=== PATIENT | male | born 1955 | race Caucasian/White ===

== ENCOUNTER → 2017-09-14 15:35 | Outpatient (CLI) | payer MEDICAID, SELFPAY ==
[2017-09-14 16:34] LABS: AST(SGOT) 20 U/L (15-37); Alanine Aminotransfer ALT/SGPT 19 U/L (16-61); Albumin, Serum 4.4 g/dL (3.2-5.0); Alkaline Phosphatase 78 U/L (45-117); Anion Gap 6 (5-15); BUN 14 mg/dL (7-18); BUN/Creat Ratio 12.4 RATIO (10-20); Bilirubin, Direct 0.14 mg/dL (0.00-0.30); Calcium,Total 9.1 mg/dL (8.5-10.1); Chloride 103 mmol/L (98-107); Cholesterol 116 mg/dL (200); Creatinine, Serum 1.13 mg/dL (0.70-1.30); EST Glomerular Filtration Rate 70 mL/min (>60); Est Glom Filt Rate - Afr Amer 85 mL/min (>60); Globulin 2.9 g/dL (2.2-4.2); Glucose 92 mg/dL (74-106); High Density Lipoprotein 41 mg/dL; Potassium 4.3 mmol/L (3.5-5.1); Protein, Total 7.3 g/dL (6.4-8.2); Sodium Level 137 mmol/L (136-145); Triglycerides 92 mg/dL; Very Low Density Lipoprotein 18 mg/dL (5-40)
== END ==
PROVIDERS: Family Provider Family Medicine; PCP Family Medicine; Visit Provider Family Medicine
DX: E11.9 Type 2 diabetes mellitus without complications (principal)
CPT/HCPCS: 36415; 80048; 80061; 80076

== ENCOUNTER → 2018-04-09 12:18 | Outpatient (CLI) | payer OTHER, SELFPAY ==
--- NOTE | 2018-04-09 12:24 | MRI_ITS ---
STUDY: MRA OF THE HEAD WITHOUT CONTRAST REASON FOR EXAM: Male, 62 years old. CVA h/o clot 03/22/18. Right arm weakness and numbness and chest surgery. TECHNIQUE: 3-D [id number]-ivioiz (TOF) imaging was performed with MIPs. The study was performed unenhanced. COMPARISON: None. FINDINGS: Normal bilateral petrous carotid arteries. Normal right cavernous carotid artery with a normal supraclinoid bifurcation. Normal left cavernous carotid artery with a normal supraclinoid bifurcation. Normal right A1 segments of the anterior cerebral artery. Normal left A1 segments of the anterior cerebral artery. Normal intact anterior communicating artery (ACOM). Normal bilateral A2 segments of the anterior cerebral arteries. Normal right M1 and M2 segments of the middle cerebral arteries, with a normal M1 bifurcation. Normal left M1 and M2 segments of the middle cerebral arteries, with a normal M1 bifurcation. There is non-visualization of the right posterior communicating artery (PCOM). There is non-visualization of the left posterior communicating artery (PCOM). Normal bilateral vertebral arteries. Normal basilar artery with a normal basilar bifurcation. The visualized bilateral superior cerebellar (SCA) arteries are normal. Normal bilateral P1, P2 and visualized P3 segments of the posterior cerebral arteries. There is no demonstrated aneurysm of the [place]. There is no major vessel occlusion or hemodynamically significant stenosis. There is no demonstrated abnormality of the visualized brain. MRI/MRA Head ONLY without Contrast IMPRESSION: Unremarkable MRA of the head Electronically Signed: Jackelin Rodriguez MD at 12:16 EDT Tel , Service support ,
== END ==
PROVIDERS: Family Provider Family Medicine; PCP Family Medicine; Referring Provider Nurse Practitioner Acute Care; Visit Provider Nurse Practitioner Acute Care
DX: R53.1 Weakness (principal); Z86.73 Personal history of transient ischemic attack (TIA), and cerebral infarction without residual deficits; Z79.899 Other long term (current) drug therapy
CPT/HCPCS: 70544

== ENCOUNTER → 2018-04-10 12:55 | Outpatient (REF) | payer OTHER, SELFPAY | LOC: CVS 12:55 | PROVIDERS: Family Provider Family Medicine; PCP Family Medicine; Referring Provider Nurse Practitioner Acute Care; Visit Provider Nurse Practitioner Acute Care | DX: I48.91 Unspecified atrial fibrillation (principal); Z86.73 Personal history of transient ischemic attack (TIA), and cerebral infarction without residual deficits | CPT/HCPCS: 93270 ==

== ENCOUNTER → 2018-05-14 06:59 | Outpatient (CLI) | payer OTHER, SELFPAY ==
--- NOTE | 2018-05-14 10:46 | STRESSREP ---
Stress Test Report Exercise myocardial perfusion stress test. 62-year-old man with a history of hypertension premature ventricular complexes noted. Stress protocol: Resting EKG demonstrates normal sinus rhythm with a rate of 96 bpm commitment wide complex rhythms noted which appear to be consistent with nonsustained ventricular tachyarrhythmia. The patient exercised on the regular Salty protocol for total duration of 3 minutes and 20 seconds the maximum heart rate attained was 157 bpm which was 99% of maximum predicted heart rate maximum workload was 4.9 metabolic equivalents. Patient maintained sinus rhythm with frequent wide complex tachycardia arrhythmias. The longest was approximately 10 beats which was largely asymptomatic. The rate was approximately 155 bpm. At rest there were no ST or T wave changes noted suggest ischemia peak exercise no ST or T wave changes were noted suggest ischemia. The resting blood pressure 122/70 with a peak blood pressure 160/74. No clinical angina was noted. The test was terminated due to frequency of the arrhythmias. Myocardial perfusion protocol. 14.5 mCi of technetium 99m sestamibi was injected at rest. The patient exercised according to regular Salty protocol for a total duration of 3 minutes and 20 seconds and at peak exercise 42.0 mCi of technetium 99m sestamibi was injected stress images were obtained stress and rest images were reconstructed and compared in the short axis vertical long horizontal long axis. Gated images were also obtained Perfusion SPECT analysis: Review of the stress images demonstrate normal uptake of tracer noted in all areas of the myocardium. The resting images similarly demonstrate normal uptake of tracer noted in all areas of the myocardium. No obvious areas of reversibility are noted suggest ischemia. No previous infarct is noted. Gated SPECT analysis: The gated ejection fraction is 64%. Conclusion: Normal exercise myocardial perfusion stress test at a low workload of 4.9 metabolic equivalents. Frequent nonsustained ventricular tachycardia noted. Preserved ejection fraction.
== END ==
PROVIDERS: Family Provider Family Medicine; PCP Family Medicine; Referring Provider Internal Medicine Cardiovascular Disease; Visit Provider Internal Medicine Cardiovascular Disease
DX: R94.31 Abnormal electrocardiogram [ECG] [EKG] (principal); I10 Essential (primary) hypertension; I49.3 Ventricular premature depolarization
CPT/HCPCS: 78452; 93017; A9500; A4216

== ENCOUNTER → 2018-05-15 11:27 | Outpatient (CLI) | payer OTHER, SELFPAY ==
[2018-04-25 09:11] VITALS: BMI 29.3
[2018-05-15 12:44] LABS: Absolute Lymphocyte Count 1.33 X10^3/ul (0.83-4.51); Absolute Neutrophil Count 3.2 X10^3/uL (2.0-7.7); Basophil# 0.02 X10^3/uL; Basophil% 0.4 % (0-1); Eosinophil# 0.14 X10^3/uL; Eosinophils% 2.7 % (0-5); Hematocrit 35.3 % (40-54); Hemoglobin 11.1 g/dl (13.0-16.5); Lymphocyte # 1.33 X10^3/ul (4.0); Lymphocyte % 25.6 % (19-41); Mean Corp Hgb Conc 31.4 g/gl (32-36); Mean Corpuscular Hgb 28.9 pg (27.0-32.0); Mean Corpuscular Volume 91.9 fL (80-94); Mean Platelet Vol. 9.7 fl (6.2-12.0); Monocyte# 0.52 X10^3/uL; Neutrophil # 3.18 X10^3/uL (2.7-7.7); Neutrophil % 61.1 % (47-70); Platelet Count 244 K/mm3 (150-450); RBC Distribution Width CV 14.8 % (11.6-14.6); RBC Distribution Width SD 48.2 fl (35.1-43.9); Red Blood Count 3.84 M/mm3 (4.6-6.2); White Blood Count 5.2 K/mm3 (4.4-11.0)
[2018-05-15 12:50] LABS: POSITIVE COUNT NO; POSITIVE DIFFERENTIAL NO; POSITIVE MORPHOLOGY NO
[2018-05-15 12:56] LABS: International Normalized Ratio 1.1; Prothrombin Time (Protime)PT. 13.7 SECONDS (11.7-14.9)
[2018-05-15 12:57] LABS: Partial Thromboplast Time 32.9 Seconds (24.1-36.2)
[2018-05-15 13:18] LABS: Anion Gap 10 (5-15); BUN 30 mg/dL (7-18); BUN/Creat Ratio 26.3 RATIO (10-20); Calcium,Total 8.9 mg/dL (8.5-10.1); Chloride 106 mmol/L (98-107); Creatinine, Serum 1.14 mg/dL (0.70-1.30); EST Glomerular Filtration Rate 69 mL/min (>60); Est Glom Filt Rate - Afr Amer 84 mL/min (>60); Glucose 92 mg/dL (74-106); Sodium Level 141 mmol/L (136-145)
--- NOTE | 2018-05-15 13:33 | RAD_ITS ---
STUDY: X-RAY CHEST REASON FOR EXAM: Male, 62 years old. Failed stress test, tachycardia. TECHNIQUE: PA and lateral views of the chest. COMPARISON: AP upright chest x-ray November 22, 2015. FINDINGS: The lungs are clear and expanded. There is no demonstrated pleural abnormality. Normal size heart. Normal mediastinum and lavell. Normal visualized pulmonary arteries. There is mild atherosclerotic calcification of the aortic arch. There are stable multilevel degenerative changes of the visualized thoracic spine. 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 There is no demonstrated abnormality of the visualized soft tissue structures of the upper abdomen. RAD/Chest PA and Lateral IMPRESSION: No acute cardiopulmonary disease. Electronically Signed: Conrado Wolfe MD at 17:11 EST , Service support ,
== END ==
PROVIDERS: Family Provider Family Medicine; PCP Family Medicine; Referring Provider Internal Medicine Cardiovascular Disease; Visit Provider Internal Medicine Cardiovascular Disease
DX: I47.2 Ventricular tachycardia (principal); I48.0 Paroxysmal atrial fibrillation; I49.3 Ventricular premature depolarization; I63.9 Cerebral infarction, unspecified; I10 Essential (primary) hypertension; R94.39 Abnormal result of other cardiovascular function study
CPT/HCPCS: 36415; 71046; 80048; 85025; 85610; 85730

== ENCOUNTER 2018-05-21 08:51 | Day surgery (SDC) | payer OTHER, SELFPAY ==
[2018-04-25 09:11] VITALS: BMI 29.3
[2018-05-16 09:41] VITALS: BMI 29.3
--- NOTE | 2018-05-21 10:19 | CL.D_ITS ---
Patient Name: FRANCA PA Study Date: 05/21/2018 Performing: Rudy Cortes MD Ht: 68.89 inches 175 cm : 1955 Wt: 198.42 lbs 90 kg Age: 62 Gender: male BSA: 2.06 PROCEDURE(S) PERFORMED [id number]/COR/LV CLINICAL PROFILE AND INDICATIONS Indications: Cardiac Arrythmia Heart Failure: None Stress/Imaging Stress Test w/SPECT MPI: Yes Result: NegativeStress Test with SPECT MPI: Negative Angina Classification Anginal Classification w/in 2 Weeks: No symptoms CAD Presentations: No Sxs, no angina. 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 The risks and benefits of the procedure as well as a full d escription of our services here and current unavailability of surgical backup were fully explained to the patient and/or their significant other prior to the catheterization. The Timeout was completed, verifying the correct patient and procedure. The patient's procedural site was prepped and draped in the usual fashion. Local anesthetic was given subcutaneously to right radial region with Lidocaine 2% . Using a modified Seldinger technique, arterial access was obtained via the right radial artery, a 6 Fr sheath was inserted. Right Coronary Artery selective angiography was then performed in multiple v iews using a 5 Fr. 4.0 Scotts catheter. Left Coronary Artery selective angiography was performed in mu ltiple views using a 5 Fr. 4.0 Scotts catheter. Left Ventriculography was performed in ZELAYA projection using a 5 Fr. Pigtail catheter. LV to AO pullback pressures were then recorded.The arterial sheath was pulled and a TR Band was applied for hemostasis CORONARY ANGIOGRAPHY DOMINANCE: Right Dominant LEFT HEART ASSESSMENT Left Ventricular Ejection Fraction: by LV Gram 55 % Normal LV wall motion Normal Left Ventricular systolic function LEFT MAIN: Angiographically normal LEFT ANTERIOR DECENDING ARTERY: Diffusely diseased up to 60 %, very small vessels DIAGONAL 1: Proximal - No significant disease noted CIRCUMFLEX ARTERY: MID CIRC: Moderate luminal irregularities up to 50% RIGHT CORONARY ARTERY: Mild luminal irregularities COMPLICATIONS No Complications PROCEDURE MEDICATIONS Versed 1 mg IV Fentanyl 50 mcg IV Versed 1 mg IV Oxygen: 2 L/min via nasal cannula SUMMARY OF HEMODYNAMIC DATA Time AIR REST ECG 09:19:49 AO 95/50 (70) SA 09:57:14 LV 96/2, 11 10:06:26 LV 98/2, 11 10:06:33 LV 102/3, 13 10:08:10 LV 96/3, 12 10:08:16 LVp 90/4, 14 10:08:21 AOp 101/51 (73) 10:08:26 Signed By Rudy Cortes MD On 05/21/2018 10:18:06 Rudy Cortes MD
== END 2018-05-21 14:45 | disposition home or self-care (01) ==
LOC: CLSP 08:52
PROVIDERS: Family Provider Family Medicine; PCP Family Medicine; Referring Provider Internal Medicine Cardiovascular Disease; Visit Provider Internal Medicine Cardiovascular Disease
DX: I49.3 Ventricular premature depolarization (principal); I10 Essential (primary) hypertension; Z86.73 Personal history of transient ischemic attack (TIA), and cerebral infarction without residual deficits; G47.33 Obstructive sleep apnea (adult) (pediatric); E11.9 Type 2 diabetes mellitus without complications; Z79.82 Long term (current) use of aspirin
CPT/HCPCS: 93458; 99152; 99153; J7040; Q9967; C1769; C1894

== ENCOUNTER 2018-06-07 09:00 | Outpatient (RCR) | payer OTHER, SELFPAY ==
--- NOTE | 2018-04-04 10:33 | HP.OTEVAL_ITS ---
Patient's Visit Information FRANCA PA is a 62 year old M, referred to Occupational Therapy by Tanmay Caruso, with a diagnosis of Stroke. Date of Evaluation: 04/03/18 Occupational Therapist: Mahnaz Kidd - Subjective Subjective: Pt seen for initial occupational therapy evaluation after suffering CVA 03/22/18 while on vacation in [facility]. Pt now demonstrates increased weakness, decreased coordination and function of R UE. Pt is R hand dominent. Pt has companions home health aide coming in to help w/ IADLs starting today. Pt lives w/ spouse, but spouse in unable to help assist pt with BADLs/IADLs. Pt completing BADLs using L hand primarily. Pt driving. Pt reports walk in shower w/ grab bars, std toilet seats. - Objective Objective/Observation: decreased functional use of R UE, decreased R UE coordination and strength. - ROM Elbow: R AROM -30/95 Wrist: R AROM 0/25' ROM Comments: R Shoulder abduction AROM 75', R Shoulder flexion AROM 74' - Strength Letterpress Printing Machinist: R 10 L 70 Lateral Pinch: R 4 L 18 Strength Comments: R UE 2/5. L UE 4+/5 - Edema Other: slight edema R elbow with brusing - Sensation Sensation Comments: No numbness and tingling - DASH-Disabilities of Arm, Shoulder& Hand DASH Sum: 85 - Goals Goal:: Pt will progress w/ R UE generalized strength 4/5 by d/c from OT to increase independence with BADLs. Pt will progress w/ R hand clerical warehouse worker strength by 60# to assist with opening containers R hand independnently by d/c from OT services. Goal:: Pt will progress w/ R AROM elbow extension by 30' and flexion 15' by d/c from OT services. Pt will progress w/ R AROM wrist extension by 30' and flexion 10' by d/c from OT services. Goal:: Pt will progress w/ R hand coordination skills to manipulate fasteners (buttons, zippers, snapes) independently for dressing tasks and tie shoes independently w/o extra time needed by d/c from OT services. Goal:: Pt will progress w/ abiltiy to grasp eating utensils correctly with R hand and cut food up independently by d/c from OT services. Goal:: Pt will be able to use R hand to grasp writing utensil and write personal information legibily in 3/4 trials. Goal:: Pt will be educated on R UE HEP with good understanding and demo 100%x. - Rehabilitation General Assessment: Pt demonstrated decreased functional use of R UE secondary to new onset stroke affecting R side. Pt demonstrates decreased ROM and strength of R UE with decreased coordination skills of R UE. Rehabilitation Potential: Good - Anticipated Interventions Anticipated Interventions: A/AAROM/PROM, Strengthening, Edema Control, Massage, Modalities, Orthoses, Joint Protection/Energy Conservation, Fine Motor Coord/Cory, Neuro Reeducation, ADL Training, Education re Self Massage Techniques, Home Program - Visit Plan Frequency: 2-3x /Week Duration: 4-6 Weeks General Plan: Pt demonstrated decreased functional use of R UE secondary to new onset stroke affecting R side. Pt demonstrates decreased ROM and strength of R UE with decreased coordination skills of R UE. Pt would benefit from direct occupational therapy services to increase R UE AROM, strength and fine motor coordination skills to increase independence with BADLs and functional living tasks to increase pt's quality of life. TEXT: Thank you for the opportunity to evaluate your patient. For Medicare and Medicare HMO plans, please review the plan of care and approve it. It will need to be FAXED BACK to us at [phone] for Medicare purposes. Please let me know if there are questions or concerns regarding this plan of care. Physician Signature: Date:
--- NOTE | 2018-04-04 14:50 | HP.PTEVAL ---
Patient's Visit Information FRANCA PA is a 62 year old M referred to Physical Therapy by Tanmay Caruso with a diagnosis of Stroke. Date of Evaluation: 04/04/18 Physical Therapist: Ady Mauricio, PT, - Visit Plan Plan: COMPLETED INTIAL PT EVALUATION. NO NEEDS FOR SKILLED PT WITH BALANCE OR GAIT - Subjective Subjective: This 62 y/o male presents to physical therapy with stroke. Patient had CVA with right hemiplegia on March 22 2108 at [place], [place]. Patient developed weakness right sidedand slurred speech,thus patien went to [facility] in [place] with CATSCAN and MRI.. Patient was in hospital for days,then patient flew home. Seen family DR recommended PT/OT/speech and MRA. Patient right led covered well but right arm continues to be affected with hypontic.Patient uses cane at home. Denies pain.Denies parathesia/tingling. Patient has able to do self hygine and ADL'S. Patient fell recently fx right humerus. Thus, has HHC 6 hours weeks. Pateint reqiures assist with laundry/cleaning/meals. Patient condition has affected QOL and housework chores. VOCATION: retired. SOCAIL: - Objective POSTURE: mild foward posture ,right arm flexed to side. GAIT: normal rodney reciprocal pattern with decrease right arm extremity motion. BALANCE: good-. MMT: 5/5 quads/hams/hip/ankle. FLEXABLITY: WFL HAMS. STAIRS: alternating 12 steps with rail left - Balance Scores Functional Gait Assessment Score: 28 % Disability: 6.6700 CATSIB Score (Max score 120 seconds): 120 - Rehabilitation Potential Physical Therapy Diagnosis: Patient had CVA main impairments speech and right UE with weaknss. Patient has no deficits with gait and balance Rehabilitation Potential: Good - Anticipated Interventions Patient/Client Instruction: Educate patient on: Condition, Plan of Care For the Purpose of:: To improve ability of physical actions for home/community/work/leisure, To improve health and function Thank you for the opportunity to evaluate your patient. For Medicare and Medicare HMO plans, please review the plan of care and approve it. It will need to be FAXED BACK to us at [phone] for Medicare purposes. Please let me know if there are questions or concerns regarding this plan of care. Physician Signature: Date:
--- NOTE | 2018-04-06 11:46 | HP.SP.AD ---
History - History Date of Eval: 04/06/18 Date of Onset of Diagnosis: 03/22/18 Previous speech therapy: Yes Results: As an inpatient following CVA. Pt able to recall dysarthria strategies recommended during stay. Other Relevant Medical History/Diagnoses/Surgery: Pt with prior CVA , 2015, with reported facial drooping but no speech/swallowing/cognitive-linguistic concerns. Medications related to this diagnosis: Lipitor and Aggrenox Smoking Status: Never smoker Hx Smoking: No Hx Tobacco Use: No - Pain Is pain an issue with your current prescribed condition?: No - Personal Patients Living Arrangements: With Significant Other Patient Allergies - Allergies Allergies No Known Allergies Allergy (Verified 11/22/15 07:30) Subjective Oral Motor - Subjective Patient Reports: Slurred Speech, Difficulty being Understood Facial Drooping: Right Objective Oral Motor - Oral Status Dentition: WNL - Labial Impairment: Mild Observation at Rest: Right Droop Pucker: Mild Retraction: Mild Alternating Pucker/Retraction: Mild Involuntary Movement noted: No - Lingual Impairment: Mild Observation: Deviated Right Protrusion: Mild Lateralization: Mild - Jaw Impairment: Mild - Oral Motor Comments Comments: Pt presents with mild right-sided hemiparesis effecting both strength and ROM of lingual and labial structures. The pt reports frequently biting his tongue, but denies numbness of any orofacial structures. Denies drooling, pocketing, or anterior spillage of bolus while eating. Denies sympoms of dysphagia. Subjective Dysarthria/Motor - Subjective Subjective: The pt presents with mild dysarthria characterized by imprecise articulation and fast rate. Pt reports a fast rate at baseline for which he was often chastized. He reports his speech has improved moderately since his recent CVA, but is not yet at baseline. The pt was 100% intelligible to this unfamiliar listener in unknown contexts in the quiet, distraction-free evaluation room. Objective Dysarthira/Motor - Speech Intelligibility Conversation: Mild - Volume Volume: WNL - Awareness/Strategy Use Uses strategies intermittently to improve intelligibility or listener's understanding of message: Yes Plan - Plan Plan: Skilled speech therapy is warranted at this time to improve the pt's mild dysarthria to a more functional level across environments. - Recommendations Treatment Warranted: Yes - Frequency Frequency: 1x/Week Duration: 2 Months - Prognosis Prognosis: Excellent - Goals that are Established: Determination:: Goals will be added/modified as deemed necessary and appropriate. Therapy will be discontinued when results of re-evaluation indicate therapy is no longer needed or lack of progress has been documented. - Goal #1-5 Goal #1: The pt will independently utilize compensatory dysarthria strategies to improve speech intelligibility during conversational interactions with 90% accuracy in 3/4 sessions. Goal #2: As judged by the WATER QUALITY CONTROL ENGINEER, the pt will independently demonstrate improved orofacial strength and ROM secondary to completion of orofacial strengthening exercises with 90% accuracy in 3/4 sessions. Education - Patient has Indicated that the Following Identified Educational Needs: None, Hearing/Vision/Speech Impaired The Patient has indicated that they have no educational or learning abilities that may effect their care.: Yes - Patient Instruction Patient Education: Diagnosis, Treatment Plan, Goals
--- NOTE | 2018-04-25 13:09 | HP.SP.DC_ITS ---
ST Discharge Summary - Discharged: Discharge: Joselito Silverman is discharged from outpatient speecch-language therapy effective 04/25/18. Joselito participated in three therapy sessions following his initial evaluation targeting compensatory dysarthria strategies and orofacial strength and range of motion exercises to facilitate improved speech intelligibility secondary to a CVA. Joselito was consistently able to demonstrate independent use of strategies and exercises and was 100% intelligible to this BAG MAKING MACHINE TENDER during normal conversational exchanges. The patient does have residual mild right labial droop at rest and with retraction, but reports no functional concerns with his speech and communication at this time. Please reconsult as necessary.
--- NOTE | 2018-05-02 11:54 | OTREVAL_ITS ---
Tanmay Caruso, It has been my pleasure to treat FRANCA PA over the last 10 visits for Stroke. Please see the progress note below for an update on the occupational therapy plan of care! Subjective: Pt arrived stating he is now using purple theraband for arm exercises at home now. No pain. Objective/Function: 10th visit OT re-evaluation: 20 min Pt is a hard worker. He is making progress with his OT goals. Pt is progressing with AROM R UE. AROM R shoulder flexion has progressed to 75' and R shoulder abduction has progressed to 87'. AROM elbow extension continues to be -30 and AROM elbow flexion has progressed -30/95 to -30/113'. AROM R wrist flexion has progressed from 25' to 30' and AROM wrist extension 0' to 5'. R hand cardiology consultants strength has progressed from 10# to 30# and R lateral pinch from 4# to 10#. Pt has been completing NDT to increase functional use of R UE for BADLs. Pt has been educated on adaptive marilyn hniques, compensatory strategies for BADLs. Pt would continue to benefit from further more skilled OT interventions to increase R UE strength, R UE AROM, independence with BADLs, writing skills and HEP to increase pt's quality of life. 1-2x/wk 4-6/wks Plan Frequency: 2-3x /Week Duration: 4-6 Weeks Plan: cont w/ prior POC Goals - Goals Goal:: Pt will progress w/ R UE generalized strength 4/5 by d/c from OT to increase independence with BADLs. Pt will progress w/ R hand cardiology consultants strength by 60# to assist with opening containers R hand independnently by d/c from OT services. Goal:: Pt will progress w/ R AROM elbow extension by 30' and flexion 15' by d/c from OT services. Pt will progress w/ R AROM wrist extension by 30' and flexion 10' by d/c from OT services. Goal:: Pt will progress w/ R hand coordination skills to manipulate fasteners (buttons, zippers, snapes) independently for dressing tasks and tie shoes independently w/o extra time needed by d/c from OT services. Goal:: Pt will progress w/ abiltiy to grasp eating utensils correctly with R hand and cut food up independently by d/c from OT services. Goal:: Pt will be able to use R hand to grasp writing utensil and write personal information legibily in 3/4 trials. Goal:: Pt will be educated on R UE HEP with good understanding and demo 100%x. Anticipated Interventions Anticipated Interventions: A/AAROM/PROM, Strengthening, Edema Control, Massage, Modalities, Orthoses, Joint Protection/Energy Conservation, Fine Motor Coord/Cory, Neuro Reeducation, ADL Training, Education re Self Massage Techniques, Home Program Please do not hesitate to contact me at [phone] by phone or if you have questions or concerns regarding this new plan of care! Sincerely, Mahnaz Kidd
--- NOTE | 2018-06-07 10:43 | OTREVAL_ITS ---
Tanmay Caruso, It has been my pleasure to treat FRANCA PA over the last 19 visits for Stroke. Please see the progress note below for an update on the occupational therapy plan of care! Subjective: Pt arrived ready for reassessment this date. Pt reports no pain, but increased tone this date. Getting ready to [place] the [place]. Objective/Function: increase functional ROM and strength of R UE to assist with functional living tasks and increase pt's quality of life Plan Frequency: 2-3x /Week Duration: 4-6 Weeks Plan: cont w/ increasing R UE AROM, strength and NDT to increase pt's ability to complete functional tasks with R UE. Goals - Goals Goal:: Pt will progress w/ R UE generalized strength 4/5 by d/c from OT to increase independence with BADLs. Pt will progress w/ R hand flying instructor strength by 60# to assist with opening containers R hand independnently by d/c from OT services. Goal:: Pt will progress w/ R AROM elbow extension by 30' and flexion 15' by d/c from OT services. Pt will progress w/ R AROM wrist extension by 30' and flexion 10' by d/c from OT services. Goal:: Pt will progress w/ R hand coordination skills to manipulate fasteners (buttons, zippers, snapes) independently for dressing tasks and tie shoes independently w/o extra time needed by d/c from OT services. Goal:: Pt will progress w/ abiltiy to grasp eating utensils correctly with R hand and cut food up independently by d/c from OT services. Goal:: Pt will be able to use R hand to grasp writing utensil and write personal information legibily in 3/4 trials. Goal:: Pt will be educated on R UE HEP with good understanding and demo 100%x. Anticipated Interventions Anticipated Interventions: A/AAROM/PROM, Strengthening, Edema Control, Massage, Modalities, Orthoses, Joint Protection/Energy Conservation, Fine Motor Coord/Cory, Neuro Reeducation, ADL Training, Education re Self Massage Techniques, Home Program Please do not hesitate to contact me at [phone] by phone or if you have questions or concerns regarding this new plan of care! Sincerely, Mahnaz Kidd
== END 2018-06-07 19:00 | disposition home or self-care (01) ==
LOC: OT 09:00
PROVIDERS: Family Provider Family Medicine; PCP Family Medicine; Referring Provider Family Medicine; Visit Provider Family Medicine
DX: Z86.73 Personal history of transient ischemic attack (TIA), and cerebral infarction without residual deficits (principal)
CPT/HCPCS: 92507; 92522; 97110; 97112; 97140; 97162; 97166; 97168; 97530

== ENCOUNTER → 2018-06-13 11:41 | Outpatient (CLI) | payer OTHER, SELFPAY ==
[2018-05-16 09:41] VITALS: BMI 29.3
[2018-06-13 14:30] LABS: Hemoglobin A1c 6.1 % (4.2-6.3)
[2018-06-13 14:47] LABS: AST(SGOT) 20 U/L (15-37); Alanine Aminotransfer ALT/SGPT 23 U/L (16-61); Albumin, Serum 4.3 g/dL (3.2-5.0); Alkaline Phosphatase 88 U/L (45-117); Cholesterol 84 mg/dL (200); Globulin 2.6 g/dL (2.2-4.2); High Density Lipoprotein 35 mg/dL; Protein, Total 6.9 g/dL (6.4-8.2); Triglycerides 76 mg/dL; Very Low Density Lipoprotein 15 mg/dL (5-40)
--- OUTSIDE RECORDS SUMMARY | 2018-09-14 16:05 | XMS RPT_ITS ---
:1955 Author Organization [place] Support Name Relationship Address Phone ELIEZER SILVERMAN Unavailable [address] + [place] [address] KINJAL, CATE Unavailable Unavailable + NINA PRAISO, [place] R Unavailable Unavailable Unavailable EMBER ELIEZER Unavailable [address] + [place] [address] LAYTON, CATE Unavailable Unavailable + NINA PRAISO, [place] R Unavailable Unavailable Unavailable EMBER, ELIEZER Unavailable [address] + [place] [address] LAYTON, CATE Unavailable Unavailable + NINA PRAISO, [place] R Unavailable Unavailable Unavailable EMBER, ELIEZER Unavailable [address] + [place] [address] LAYTON, CATE Unavailable Unavailable + NINA PRAISO, [place] R Unavailable Unavailable Unavailable EMBER, ELIEZER Unavailable [address] + [place] [address] KINJAL, CATE Unavailable Unavailable + NINA PRAISO, [place] R Unavailable Unavailable Unavailable EMBER, ELIEZER Unavailable [address] + [place] [address] KINJAL, CATE Unavailable Unavailable + NINA PRAISO, [place] R Unavailable Unavailable Unavailable EMBER, ELIEZER Unavailable [address] + [place] [address] LAYTON, CATE Unavailable Unavailable + NINA PRAISO, [place] R Unavailable Unavailable Unavailable EMBER, ELIEZER Unavailable [address] + [place] [address] KINJAL CATE Unavailable Unavailable + NINA PRAISO, [place] R Unavailable Unavailable Unavailable EMBER, ELIEZER Unavailable [address] + [place] [address] KINJAL CATE Unavailable Unavailable + R Unavailable Unavailable Unavailable CLIFFTON, ELIEZER/CALL Unavailable [address] + [place] [address] KINJAL, CATE Unavailable . + ., [place] . R Unavailable Unavailable Unavailable CLIFFTON, ELIEZER/CALL Unavailable [address] + [place] [address] LAYTON, CATE Unavailable Unavailable + R Unavailable Unavailable Unavailable EMBER, ELIEZER Unavailable [address] + [place] [address] LAYTON, CATE Unavailable Unavailable + NINA PRAISO, [place] R Unavailable Unavailable Unavailable EMBER, ELIEEZR Unavailable [address] + [place] [address] LAYTON, CATE Unavailable Unavailable + NINA PRAISO, [place] R Unavailable Unavailable Unavailable CLIFFTON, ELIEZER/CALL Unavailable [address] + [place] [address] KINJAL CATE Unavailable Unavailable + R Unavailable Unavailable Unavailable CLIFFTON, ELIEZER/CALL Unavailable [address] + [place] [address] LAYTON, CATE Unavailable . + [place], [place] . R Unavailable Unavailable Unavailable Care Team Providers Name Role Phone Sebastian, Seldovia Attending Unavailable Sebastian, Rudy Referring Unavailable Sebastian, Seldovia Attending Unavailable Sebastian, Rudy Referring Unavailable Sebastian, Seldovia Attending Unavailable Sebastian, Rudy Referring Unavailable Tanmay Caruso Attending Unavailable Tanmay Caruso Primary Care Unavailable Tanmay Caruso Attending Unavailable Tanmay Caruso Primary Care Unavailable Tanmay Caruso Attending Unavailable Tanmay Caruso Referring Unavailable Tanmay Caruso Primary Care Unavailable Jodee Sal ASSISTED LIVING MANAGER-C Attending Unavailable Doron, Jodee ASSISTED LIVING MANAGER-C Referring Unavailable Caruso, Tanmay Primary Care Unavailable Doron, [place] ASSISTED LIVING MANAGER-C Attending Unavailable Doron, Jodee ASSISTED LIVING MANAGER-C Referring Unavailable Caruso, Tanmay Primary Care Unavailable Zonia Yanez Attending Unavailable Sebastian, Seldovia Attending Unavailable Caruso, Tanmay Referring Unavailable Sebastian, Seldovia Attending Unavailable Sebastian, Rudy Referring Unavailable Caruso, Tanmay Primary Care Unavailable Sebastian, Rudy Attending Unavailable Sebastian, Rudy Referring Unavailable Caruso, Tanmay Primary Care Unavailable Sebastian, Seldovia Attending Unavailable Sebastian, Seldovia Referring Unavailable Caruso, Tanmay Primary Care Unavailable Sebastian, Seldovia Attending Unavailable Caruso, Tanmay Referring Unavailable Kilner, Zonia Attending Unavailable PROBLEMS PROBLEMS DATE TYPE CONDITION / CODE ATTENDING STATUS SOURCE 06/07/2018 Unknown Z86.73 - Personal Tanmay Caruso Active [place] history of transient Community ischemic attack (TIA), Hospital and cerebral Repository infarction without residual deficits / Z86.73(ICD-10) 05/15/2018 Unknown I49.3 - Ventricular Sebastian, Rudy Active [facility] premature Community depolarization / Hospital I49.3(ICD-10) Repository 05/15/2018 Unknown I10 - Essential Sebastian, Rudy Active [facility] (primary) hypertension Community / I10(ICD-10) Hospital Repository 05/15/2018 Unknown I47.2 - Ventricular Sebastian, Rudy Active [place] tachycardia / Community I47.2(ICD-10) Hospital Repository 05/15/2018 Unknown I48.0 - Paroxysmal Sebastian, Rudy Active [facility] atrial fibrillation / Community I48.0(ICD-10) Hospital Repository 05/15/2018 Unknown I63.9 - Cerebral Sebastian, Rudy Active [place] infarction, Community unspecified / Hospital I63.9(ICD-10) Repository 05/15/2018 Unknown R94.39 - Abnormal Sebastian, Rudy Active [place] result of other Community cardiovascular Hospital function study / Repository R94.39(ICD-10) 06/05/2018 Unknown R94.31 - Abnormal Sebastian, Rudy Active [facility] electrocardiogram Community [ECG] [EKG] / Hospital R94.31(ICD-10) Repository 06/13/2018 Unknown I48.91 - Unspecified Sebastian, [place] Active [facility] atrial fibrillation / Community I48.91(ICD-10) Hospital Repository 09/14/2017 Unknown E11.9 - Type 2 Tanmay Caruso Active [facility] diabetes mellitus Community without complications Hospital / E11.9(ICD-10) Repository PROCEDURES PROCEDURES No Procedure Records FoundRESULTS RESULTS HEMOGLOBIN A1C Collected: 06/13/2018 Status: F Source: [place] 11:50 AM [facility] REPOSITORY TYPE CODE TESTS RESULT OUT OF RANGE REFERENCE UNITS LAB L501.9985 4.2-6.3 % Normal HGB A1C 6.1 Performed By: #### L501.9985 #### [facility] [address] [place], [place], [address] LIVER PROFILE Collected: 06/13/2018 Status: F Source: [place] 11:50 AM [facility] REPOSITORY TYPE CODE TESTS RESULT OUT OF RANGE REFERENCE UNITS LAB L501.1500 6.4-8.2 g/dL Normal T PROT 6.9 LAB L501.1800 3.2-5.0 g/dL Normal ALB 4.3 LAB L501.1950 2.2-4.2 g/dL Normal GLOB 2.6 LAB L501.4100 15-37 U/L Normal AST 20 LAB L501.4305 45-117 U/L Normal ALK P 88 LAB L501.4405 16-61 U/L Normal ALT 23 LAB L501.4600 0.20-1.00 mg/dL Normal T BILI 0.60 LAB L501.4700 0.00-0.30 mg/dL Normal D BILI 0.20 Performed By: #### L500.3400, L500.4100 #### [facility] [address] [place], [place], [id number] LIPID PROFILE Collected: 06/13/2018 Status: F Source: [place] 11:50 AM [facility] REPOSITORY TYPE CODE TESTS RESULT OUT OF RANGE REFERENCE UNITS LAB L501.4900 200 mg/dL Normal CHOL 84 Result Comment: <200 mg/dL Desirable 200-240 mg/dL Borderline >240 mg/dL High Risk LAB L501.5000 mg/dL Normal TRIG 76 Result Comment: The drugs N-Acetylcysteine and Metamizole may falsely depress this assay. Serum Triglycerides Reference Interval Normal <150 mg/dL Borderline high 150 - 199 mg/dL High 200 - 499 mg/dL Very High > or = 500 mg/dL LAB L501.6400 mg/dL Low HDL 35 Result Comment: The drugs N-Acetylcysteine and Metamizole may falsely depress this assay. Reference Range HDL <40 mg/dL Low HDL Cholesterol HDL >or= 60 mg/dL High HDL Cholesterol LAB L501.6500 0-130 mg/dL Normal LDL 34 LAB L501.6600 5-40 mg/dL Normal VLDL 15 Performed By: #### L500.3400, L500.4100 #### [facility] [address] [place], [address] RE-EVALUTION OT Observed: 06/07/2018 Status: New Source: [place] 10:54 AM [facility] REPOSITORY [facility] Occupational Therapy [facility] [address] [place] [address] Fax REEVALUATION / MEDICARE RECERTIFICATION OCCUPATIONAL THERAPY MR#: [id number] Acct: [id number] Name: FRANCA SILVERMAN Rep #: [id number] : 1955 62 From: Mahnaz Kidd Referring Dr.: Tanmay Caruso MD Status: REG RCR Insurance: [email or web address] JUST FOR ME Eval Date: SELF PAY INSURANCE Tanmay Caruso, It has been my pleasure to treat FRANCA SILVERMAN over the last 19 visits for Stroke. Please see the progress note below for an update on the occupational therapy plan of care! Subjective: Pt arrived ready for reassessment this date. Pt reports no pain, but increased tone this date. Getting ready to visit family in different [place] for the [place]. Objective/Function: increase functional ROM and strength of R UE to assist with functional living tasks and increase pt's quality of life Plan Frequency: 2-3x /Week Duration: 4-6 Weeks Plan: cont w/ increasing R UE AROM, strength and NDT to increase pt's ability to complete functional tasks with R UE. Goals - Goals Goal:: Pt will progress w/ R UE generalized strength 4/5 by d/c from OT to increase independence with BADLs. Pt will progress w/ R hand outreach educator strength by 60# to assist with opening containers R hand independnently by d/c from OT services. Goal:: Pt will progress w/ R AROM elbow extension by 30' and flexion 15' by d/c from OT services. Pt will progress w/ R AROM wrist extension by 30' and flexion 10' by d/c from OT services. Goal:: Pt will progress w/ R hand coordination skills to manipulate fasteners (buttons, zippers, snapes) independently for dressing tasks and tie shoes independently w/o extra time needed by d/c from OT services. Goal:: Pt will progress w/ abiltiy to grasp eating utensils correctly with R hand and cut food up independently by d/c from OT services. Goal:: Pt will be able to use R hand to grasp writing utensil and write personal information legibily in 3/4 trials. Goal:: Pt will be educated on R UE HEP with good understanding and demo 100%x. Anticipated Interventions Anticipated Interventions: A/AAROM/PROM, Strengthening, Edema Control, Massage, Modalities, Orthoses, Joint Protection/Energy Conservation, Fine Motor Coord/Cory, Neuro Reeducation, ADL Training, Education re Self Massage Techniques, Home Program Please do not hesitate to contact me at [phone] by phone or if you have questions or concerns regarding this new plan of care! Sincerely, Mahnaz Kidd <Electronically signed by Mahnaz Kidd > 06/07/18 1054 CC: Tamnay Caruso MD KIKA Signed For Medicare only, by signing this I certify the plan of care. Physicians Signature Date OFFICE VISIT REPORT Observed: 05/17/2018 Status: F Source: [place] 10:49 AM [facility] [address] [place] [address] OFFICE VISIT Date of Service: 05/15/18 MR#: [id number] Acct: [id number] Patient: FRANCA SILVERMAN Rep #: [id number] : 1955 Provider: Rudy Cortes MD Age/Sex: 62/M Location: [facility] Status: Signed Intake Intake Visit Reasons: Cath Teaching for PK Chief Complaint: Initial consult Allergies No Known Allergies Allergy (Verified 04/25/18 09:03) Medications Multivitamin [Daily Multiple Vitamin] 1 ea PO DAILY 11/22/15 [History Confirmed 05/16/18] Acetaminophen [Tylenol Tablet] 650 mg PO Q4H PRN PRN #0 tab 11/24/15 [Rx Confirmed 05/16/18] Atorvastatin Calcium [Lipitor] 20 mg PO QHS #30 tab 12/01/15 [Rx Confirmed 05/16/18] Fluticasone 0.05% [Flonase Nasal [place]] 2 spray NASAL DAILY #1 bottle 12/01/15 [Rx Confirmed 05/16/18] Loratadine [Claritin] 10 mg PO DAILY tab 12/01/15 [Rx Confirmed 05/16/18] Metformin HCl [Metformin HCl ER] 500 mg PO BID #60 [id number] 12/01/15 [Rx Confirmed 05/16/18] aspirin 25 mg-dipyridamole 200 mg capsule,ext.release 12 hr multiphase 1 cap PO BID 04/25/18 [History Confirmed 05/16/18] lisinopril 5 mg tablet 5 mg PO DAILY #90 tab 04/25/18 [Rx Confirmed 05/16/18] metoprolol succinate ER 25 mg tablet,extended release 24 hr 25 mg PO DAILY #90 tab 04/25/18 [Rx Confirmed 05/16/18] clopidogrel 75 mg tablet 75 mg PO DAILY #30 tab 05/14/18 [Rx Confirmed 05/16/18] Nursing Note Cardiac catheterization teaching completed and instructions reviewed. Heart cath scheduled for 05/21/18 05/17/18 1049 <Electronically signed by Rudy Cortes MD> Date Rudy Cortes MD Cosigner Signature: Date (if applicable) CC: CHEST PA AND LATERAL Observed: 05/15/2018 Status: F Source: [place] 1:16 PM [facility]PITAL REPOSITORY [facility] Imaging Services [address] [place] [address] Chest PA and Lateral MR#: [id number] Acct: [id number] Name: FRANCA SILVERMAN Rep #: [id number] : 1955 M 62 From: Yusef Wolfe MD PCP: Tanmay Caruso MD Status: REG CLI Study: Chest PA and Lateral Date of Exam: 05/15/18 Exam# [id number] Ordering Dr: Rudy Cortes MD STUDY: X-RAY CHEST REASON FOR EXAM: Male, 62 years old. Failed stress test, tachycardia. TECHNIQUE: PA and lateral views of the chest. COMPARISON: AP upright chest x-ray November 22, 2015. FINDINGS: The lungs are clear and expanded. There is no demonstrated pleural abnormality. Normal size heart. Normal mediastinum and lavell. Normal visualized pulmonary arteries. There is mild atherosclerotic calcification of the aortic arch. There are stable multilevel degenerative changes of the visualized thoracic spine. 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 There is no demonstrated abnormality of the visualized soft tissue structures of the upper abdomen. RAD/Chest PA and Lateral IMPRESSION: No acute cardiopulmonary disease. Electronically Signed: Conrado Wolfe MD at 17:11 EST , Service support , CC: Rudy Cortes MD; Tanmay Caruso MD Can Sealer: Signed CBC W/DIFF, AUTOMATED Collected: 05/15/2018 Status: F Source: [place] 11:32 AM [facility] REPOSITORY TYPE CODE TESTS RESULT OUT OF RANGE REFERENCE UNITS LAB L100.1000 4.4-11.0 K/mm3 Normal WBC 5.2 LAB L100.1200 4.6-6.2 M/mm3 Low RBC 3.84 LAB L100.1300 13.0-16.5 g/dl Low HGB 11.1 LAB L100.1400 40-54 % Low HCT 35.3 LAB L100.1500 80-94 fL Normal MCV 91.9 LAB L100.1600 27.0-32.0 pg Normal MCH 28.9 LAB L100.1700 32-36 g/gl Low MCHC 31.4 LAB L100.1810 11.6-14.6 % High RDW CV 14.8 LAB L100.1820 35.1-43.9 fl High RDW SD 48.2 LAB L100.1900 150-450 K/mm3 Normal PLT 244 LAB L100.2000 6.2-12.0 fl Normal MPV 9.7 LAB L100.2100 47-70 % Normal NEUT% 61.1 LAB L100.2200 19-41 % Normal LY% 25.6 LAB L100.2300 0-10 % Normal MONO% 10.0 LAB L100.2400 0-5 % Normal EO% 2.7 LAB L100.2500 0-1 % Normal BASO% 0.4 LAB L100.2550 0.0-0.9 % Normal IM GRAN % 0.200 Result Comment: IG% - Immature Granulocytes (promyelocytes, myelocytes and metamyelocytes) > 1% indicates that a LEFT SHIFT is Present. LAB L100.2620 2.0-7.7 X10 3/uL Normal Absolute Neut 3.2 LAB L100.2720 0.83-4.51 X10 3/ul Normal Absolute Lymph 1.33 Performed By: #### L100.0100 #### [facility] [address] [place], [address] PROTHROMBIN TIME W/INR Collected: 05/15/2018 Status: F Source: [place] 11:32 AM [facility] REPOSITORY TYPE CODE TESTS RESULT OUT OF RANGE REFERENCE UNITS LAB L300.4150 11.7-14.9 SECONDS Normal PROTIME 13.7 LAB L300.4200 Normal INR 1.1 Performed By: #### L300.3900, L300.4310 #### [facility] [address] [place], [address] PARTIAL THROMBOPLAST Collected: 05/15/2018 Status: F Source: [place] TIME 11:32 AM [facility] REPOSITORY TYPE CODE TESTS RESULT OUT OF RANGE REFERENCE UNITS LAB L300.4310 24.1-36.2 Seconds Normal PTT 32.9 Performed By: #### L300.3900, L300.4310 #### [facility] [address] [place], [address] BASIC METABOLIC Collected: 05/15/2018 Status: F Source: [place] PROFILE (BMP) 11:32 AM [facility] REPOSITORY TYPE CODE TESTS RESULT OUT OF RANGE REFERENCE UNITS LAB L501.0100 74-106 mg/dL Normal GLU 92 Result Comment: Please note revised GLUCOSE reference range effective 2017. LAB L501.1000 7-18 mg/dL High BUN 30 LAB L501.1100 0.70-1.30 mg/dL Normal CREAT,SERUM 1.14 Result Comment: The validity of the calculated GFR AND GFRAA in patients over 70 years has not been determined. Clinical correlation is essential. LAB L501.1110 >60 mL/min Normal EST GFR 69 Result Comment: Non- GFR Calc LAB L501.1115 >60 mL/min Normal EST GFR - AA 84 Result Comment: GFR Calc LAB L501.1300 10-20 RATIO High BUN/CRE 26.3 LAB L501.2200 8.5-10.1 mg/dL CA Normal 8.9 LAB L501.5300 136-145 mmol/L NA Normal 141 LAB L501.5600 3.5-5.1 mmol/L K Normal 4.0 LAB L501.5900 98-107 mmol/L CL Normal 106 LAB L501.6100 21.0-32.0 mmol/L Normal CO2 25.0 LAB L501.6200 5-15 Normal GAP 10 Performed By: #### L500.2500 #### [facility] [address] [place], [address] STRESS REPORT Observed: 05/14/2018 Status: F Source: [place] 10:57 AM [facility] HOSPITAL REPOSITORY [facility] Cardiovascular Services [address] [place] [address] MR#: [id number] Acct: [id number] Name: FRANCA SILVERMAN Rep #: [id number] : 1955 62 From: Rudy Cortes MD Primary Care: Tanmay Caruso MD Status: REG CLI Ordering Dr: Sex: M C Stress Test Report Exercise myocardial perfusion stress test. 62-year-old man with a history of hypertension premature ventricular complexes noted. Stress protocol: Resting EKG demonstrates normal sinus rhythm with a rate of 96 bpm commitment wide complex rhythms noted which appear to be consistent with nonsustained ventricular tachyarrhythmia. The patient exercised on the regular Salty protocol for total duration of 3 minutes and 20 seconds the maximum heart rate attained was 157 bpm which was 99% of maximum predicted heart rate maximum workload was 4.9 metabolic equivalents. Patient maintained sinus rhythm with frequent wide complex tachycardia arrhythmias. The longest was approximately 10 beats which was largely asymptomatic. The rate was approximately 155 bpm. At rest there were no ST or T wave changes noted suggest ischemia peak exercise no ST or T wave changes were noted suggest ischemia. The resting blood pressure 122/70 with a peak blood pressure 160/74. No clinical angina was noted. The test was terminated due to frequency of the arrhythmias. Myocardial perfusion protocol. 14.5 mCi of technetium 99m sestamibi was injected at rest. The patient exercised according to regular Salty protocol for a total duration of 3 minutes and 20 seconds and at peak exercise 42.0 mCi of technetium 99m sestamibi was injected stress images were obtained stress and rest images were reconstructed and compared in the short axis vertical long horizontal long axis. Gated images were also obtained Perfusion SPECT analysis: Review of the stress images demonstrate normal uptake of tracer noted in all areas of the myocardium. The resting images similarly demonstrate normal uptake of tracer noted in all areas of the myocardium. No obvious areas of reversibility are noted suggest ischemia. No previous infarct is noted. Gated SPECT analysis: The gated ejection fraction is 64%. Conclusion: Normal exercise myocardial perfusion stress test at a low workload of 4.9 metabolic equivalents. Frequent nonsustained ventricular tachycardia noted. Preserved ejection fraction. 05/14/18 1058 <Electronically signed by Rudy Cortes MD> Date Rudy Cortes MD CC: Rudy Cortes MD; Tanmay Caruso MD Date Dictated: 05/14/181045 Date Transcribed: 05/14/181045 Can Sealer: [place] Signed RE-EVALUTION OT Observed: 05/02/2018 Status: F Source: [place] 11:56 AM [facility] REPOSITORY [facility] Occupational Therapy [facility] [address] [place] [address] Fax REEVALUATION / MEDICARE RECERTIFICATION OCCUPATIONAL THERAPY MR#: [id number] Acct: [id number] Name: FRANCA SILVERMAN Rep #: [id number] : 1955 62 From: Mahnaz Kidd Referring Dr.: Tanmay Caruso MD Status: REG RCR Insurance: [email or web address] JUST FOR ME Eval Date: SELF PAY INSURANCE Tanmay Caruso, It has been my pleasure to treat FRANCA SILVERMAN over the last 10 visits for Stroke. Please see the progress note below for an update on the occupational therapy plan of care! Subjective: Pt arrived stating he is now using purple theraband for arm exercises at home now. No pain. Objective/Function: 10th visit OT re-evaluation: 20 min Pt is a hard worker. He is making progress with his OT goals. Pt is progressing with AROM R UE. AROM R shoulder flexion has progressed to 75' and R shoulder abduction has progressed to 87'. AROM elbow extension continues to be -30 and AROM elbow flexion has progressed -30/95 to -30/113'. AROM R wrist flexion has progressed from 25' to 30' and AROM wrist extension 0' to 5'. R hand outreach educator strength has progressed from 10# to 30# and R lateral pinch from 4# to 10#. Pt has been completing NDT to increase functional use of R UE for BADLs. Pt has been educated on adaptive techniques, compensatory strategies for BADLs. Pt would continue to benefit from further more skilled OT interventions to increase R UE strength, R UE AROM, independence with BADLs, writing skills and HEP to increase pt's quality of life. 1-2x/wk 4-6/wks Plan Frequency: 2-3x /Week Duration: 4-6 Weeks Plan: cont w/ prior POC Goals - Goals Goal:: Pt will progress w/ R UE generalized strength 4/5 by d/c from OT to increase independence with BADLs. Pt will progress w/ R hand outreach educator strength by 60# to assist with opening containers R hand independnently by d/c from OT services. Goal:: Pt will progress w/ R AROM elbow extension by 30' and flexion 15' by d/c from OT services. Pt will progress w/ R AROM wrist extension by 30' and flexion 10' by d/c from OT services. Goal:: Pt will progress w/ R hand coordination skills to manipulate fasteners (buttons, zippers, snapes) independently for dressing tasks and tie shoes independently w/o extra time needed by d/c from OT services. Goal:: Pt will progress w/ abiltiy to grasp eating utensils correctly with R hand and cut food up independently by d/c from OT services. Goal:: Pt will be able to use R hand to grasp writing utensil and write personal information legibily in 3/4 trials. Goal:: Pt will be educated on R UE HEP with good understanding and demo 100%x. Anticipated Interventions Anticipated Interventions: A/AAROM/PROM, Strengthening, Edema Control, Massage, Modalities, Orthoses, Joint Protection/Energy Conservation, Fine Motor Coord/Cory, Neuro Reeducation, ADL Training, Education re Self Massage Techniques, Home Program Please do not hesitate to contact me at [phone] by phone or if you have questions or concerns regarding this new plan of care! Sincerely, Mahnaz Kidd <Electronically signed by Mahnaz Kidd > 05/02/18 1156 CC: Tanmay Caruso MD KIKA Signed For Medicare only, by signing this I certify the plan of care. Physicians Signature Date D/C SUMMARY- SP Observed: 04/25/2018 Status: F Source: [place] 1:09 PM [facility] REPOSITORY [facility] Speech Pathology [facility] [address] [place] [address] Fax REHABILITATION SERVICES DISCHARGE SUMMARY MR#: [id number] Acct: [id number] Name: FRANCA SILVERMAN Rep #: [id number] : 1955 62 From: Dominique Villareal M.S. CCC-MUSHROOM GROWTH MEDIA MIXER Referring Dr.: Tanmay Caruso MD Status: REG RCR Insurance: [email or web address] JUST FOR ME SELF PAY INSURANCE ST Discharge Summary - Discharged: Discharge: Franca Silverman is discharged from outpatient speecch- language therapy effective 04/25/18. Franca participated in three therapy sessions following his initial evaluation targeting compensatory dysarthria strategies and orofacial strength and range of motion exercises to facilitate improved speech intelligibility secondary to a CVA. Franca was consistently able to demonstrate independent use of strategies and exercises and was 100% intelligible to this MUSHROOM GROWTH MEDIA MIXER during normal conversational exchanges. The patient does have residual mild right labial droop at rest and with retraction, but reports no functional concerns with his speech and communication at this time. Please reconsult as necessary. <Electronically signed by Dominique Villareal M.S., CCC-MUSHROOM GROWTH MEDIA MIXER> 04/25/18 1309 CC: Tanmay Caruso MD [place] Signed CARDIOLOGY VISIT Observed: 04/25/2018 Status: F Source: [place] REPORT 9:35 AM [facility] REPOSITORY [facility] [address] [address] [place] [address] OFFICE VISIT Date of Service: 04/25/18 MR#: [id number] Acct: [id number] Name: FRANCA SILVERMAN Rep #: [id number] : 1955 Provider: Rudy Cortes MD Age/Sex: 62/M [place] [facility] [place]: Signed [facility] HPI Chief Complaint: Initial consult Details: FRANCA SILVERMAN, is a 62 M who presents to the office today for an initial consultation. He is a gentleman with a history of cerebrovascular accident initially in 2016 who was initially on Plavix and has been switched to Aggrenox. He had an MRI which showed a left-sided CVA with right-sided upper extremity weakness. As part of his workup for the cerebrovascular accident he had a 30-day event monitor placed. The 30-day event monitor demonstrated some short runs of wide-complex tachycardia which appeared to be nonsustained in nature. It appeared to have an appearance of aberrancy. No obvious atrial fibrillation or ventricular tachyarrhythmia was noted. He has had no chest pain shortness of breath or paroxysmal nocturnal dyspnea or pedal edema. He has been compliant with all his medications. Intake Vital Signs04/25/18 Height 5 ft 9 in 04/25/18 Weight: 199 lb 04/25/18 Body Mass Index (BMI) 29.3 04/25/18 Blood Pressure 112/70 04/25/18 Respiratory Rate 16 04/25/18 Pulse Rate 80 Intake Visit Reasons: Dr José ref'd for afib (30 day monitor) Allergies No Known Allergies Allergy (Verified 04/25/18 09:03) Medications Multivitamin [Daily Multiple Vitamin] 1 ea PO DAILY 11/22/15 [History Confirmed 04/25/18] Acetaminophen [Tylenol Tablet] 650 mg PO Q4H PRN PRN #0 tab 11/24/15 [Rx Confirmed 04/25/18] Atorvastatin Calcium [Lipitor] 20 mg PO QHS #30 tab 12/01/15 [Rx Confirmed 04/25/18] Fluticasone 0.05% [Flonase Nasal [place]] 2 spray NASAL DAILY #1 bottle 12/01/15 [Rx Confirmed 04/25/18] Loratadine [Claritin] 10 mg PO DAILY tab 12/01/15 [Rx Confirmed 04/25/18] Metformin HCl [Metformin HCl ER] 500 mg PO BID #60 [id number] 12/01/15 [Rx Confirmed 04/25/18] aspirin 25 mg-dipyridamole 200 mg capsule,ext.release 12 hr multiphase 1 cap PO BID 04/25/18 [History Confirmed 04/25/18] lisinopril 5 mg tablet 5 mg PO DAILY #90 tab 04/25/18 [Rx Confirmed 04/25/18] metoprolol succinate ER 25 mg tablet,extended release 24 hr 25 mg PO DAILY #90 tab 04/25/18 [Rx Confirmed 04/25/18] [facility] Medical History Paroxysmal atrial fibrillation (Acute) Premature ventricular contractions (Chronic) CVA (cerebral vascular accident) (Chronic) Essential (primary) hypertension (Chronic) Obesity (Chronic) Obstructive sleep apnea (Chronic) Type 2 diabetes mellitus (Chronic) Family History Mother Heart disease Father Heart disease Social History Smoking Status: Never smoker ROS Const Const: Positive for weakness (RUE weakness); negative for fatigue, difficulty sleeping, frequent falls, excessive sweating or headache(s) Eyes Eyes: Negative for loss of peripheral vision, transient loss of vision, blurry vision, tunnel vision or double vision ENT ENT: Negative for headache(s), dizziness, Nosebleed/epistaxis or balance problems Cardio Chest Pain: No Palpitations: No Edema: None Muscle aches with walking: None Resp Respiratory: Negative for SOB with activity, SOB at rest, SOB orthopnea\SOB lying down, paroxysmal nocturnal dyspnea or Cough GI GI: Negative nausea, heartburn, black,tarry stools or vomiting : Negative for hematuria Musc Musc: Negative for balance problems, muscle aches/ myalgia, muscle weakness or joint pain Skin Skin: Negative non-healing lesions, unusual bruising or rash Neuro Neuro: Positive for weakness (RUE weakness) and other (Occasional slurred speech ); negative for frequent falls, headache(s), blurry vision, double vision, dizziness, lightheadedness, orthostatic symptoms, near syncope, syncope or lack of coordination Joey Hematologic/Lymphatic: Negative for easy bruising or easy bleeding Endo Endo: Negative for fatigue, excessive sweating or increased thirst/drinking Psych Psych: Negative for anxiety or depression Allergy Allergy/Immunology: Negative for hives, Negative for rash Cardiology Exam Const Appearance: cooperative, healthy appearing, well developed, well groomed and no acute distress Nutritional Appearance: well nourished and average body habitus Orientation: alert, awake and oriented x3 Head Head: normal to inspection, normocephalic and atraumatic Ears: hearing grossly normal bilaterally and external ears normal Nose: external nose normal, nasal mucous membranes and turbinates normal, nares normal, septum normal, no nasal discharge Face and Sinus: face symmetric Mouth: oral mucosae normal, tongue normal, oropharynx normal and moist mucous membranes Teeth and gingiva: dentition normal Throat: posterior oropharynx normal, tonsils normal and uvula midline Eyes General: appearance normal, both eyes and all related structures Eyelids: eyelids normal Conjunctivae: conjunctivae normal Pupils: PERRL, normal by confrontation and accommodation normal EOM: EOM intact bilaterally Neck Neck: normal visual inspection, trachea midline and no JVD JVD: +5 Carotids: normal carotid upstroke and bounding pulses Chest Chest inspection: normal inspection of the chest, symmetric chest movement and normal respiratory effort Auscultation: Bilateral: Clear to Auscultation Cardio Palpation: normal PMI Rate: regular rate Rhythm: regular rhythm Heart sounds: S1 normal, S2 normal and normal, physiologic split S2; negative rub, gallop or murmur GI GI: normal to inspection, soft, no hepatosplenomegaly and bowel sounds present Neuro General: alert, awake, oriented x3, no focal sensory deficit, gait normal and moves all extremities Skin Skin: no rashes or lesions noted Musculoskel Musculoskeletal: No joint tenderness right arm weakness Psych Psychological: normal affect Assessment AND Plan 1. Premature ventricular contractions I49.3 Plan He appears to have some premature ventricular complexes. His 30 day event monitor was reviewed. There did not appear to be any sustained episodes. I would recommend that we obtain an echocardiogram to reassess his left ventricular function as well as a myocardial perfusion stress test to exclude any ischemia. I would also recommend that we put him on a beta-augustus with Toprol-XL 25 mg a day and reduce his lisinopril to 5 mg a day. Further recommendations will depend on the results of the above tests. 2. Essential (primary) hypertension I10 Plan His blood pressure appears to be under good control as noted above I reduce his lisinopril to 5 mg a day and add Toprol-XL 25 mg a day. The echocardiogram will assess for any wall motion of normalities as well as wall thickness as well. Thank you for allowing me to participate in the care of your patient. Please don't hesitate to call if any issues arise Plan Detail Other Medications New: Discontinued: Follow Up 6 Months (r) Coding Level of Care Code Off vis,new,level 4 Diagnoses Premature ventricular contractions I49.3 Essential (primary) hypertension I10 Coding Level of Care Code Off vis,new,level 4 Diagnoses Premature ventricular contractions I49.3 Essential (primary) hypertension I10 04/25/18 0935 <Electronically signed by Rudy Cortes MD> Date Rudy Cortes MD Cosigner Signature: Date (if applicable) CC: Tanmay Caruso MD; Jefferson José MD INITAL EVALUATION (1) Observed: 04/09/2018 Status: F Source: [place] - PT 7:42 PM [facility] REPOSITORY [facility] Physical Therapy [facility] [address] [place] [address]. [address] [place] [address] Fax REHABILITATION SERVICES INITIAL EVALUATION MR#: [id number] Acct: [id number] Name: FRANCA SILVERMAN Rep #: [id number] : 1955 62 From: Ady Mauricio PT, Cert. MDT, OCS Referring Dr.: Tanmay Caruso MD Status: REG R Insurance: [facility] JUST FOR ME SELF PAY INSURANCE Patient's Visit Information FRANCA SILVERMAN is a 62 year old M referred to Physical Therapy by Tanmay Caruso with a diagnosis of Stroke. Date of Evaluation: 04/04/18 Physical Therapist: Ady Mauricio PT, - Visit Plan Plan: COMPLETED INTIAL PT EVALUATION. NO NEEDS FOR SKILLED PT WITH BALANCE OR GAIT - Subjective Subjective: This 62 y/o male presents to physical therapy with stroke. Patient had CVA with right hemiplegia on March 22 2108 at [place], [place]. Patient developed weakness right sidedand slurred speech,thus patien went to Hospital in [place] with CATSCAN and MRI.. Patient was in hospital for days,then patient flew home. Seen family DR recommended PT/OT/speech and MRA. Patient right led covered well but right arm continues to be affected with hypontic.Patient uses cane at home. Denies pain.Denies parathesia/tingling. Patient has able to do self hygine and ADL'S. Patient fell recently fx right humerus. Thus, has HHC 6 hours weeks. Pateint reqiures assist with laundry/cleaning/meals. Patient condition has affected QOL and housework chores. VOCATION: retired. SOCAIL: - Objective POSTURE: mild foward posture ,right arm flexed to side. GAIT: normal rodney reciprocal pattern with decrease right arm extremity motion. BALANCE: good-. MMT: 5/5 quads/hams/hip/ankle. FLEXABLITY: WFL HAMS. STAIRS: alternating 12 steps with rail left - Balance Scores Functional Gait Assessment Score: 28 % Disability: 6.6700 CATSIB Score (Max score 120 seconds): 120 - Rehabilitation Potential Physical Therapy Diagnosis: Patient had CVA main impairments speech and right UE with weaknss. Patient has no deficits with gait and balance Rehabilitation Potential: Good - Anticipated Interventions Patient/Client Instruction: Educate patient on: Condition, Plan of Care For the Purpose of:: To improve ability of physical actions for home/community/work/leisure, To improve health and function Thank you for the opportunity to evaluate your patient. For Medicare and Medicare HMO plans, please review the plan of care and approve it. It will need to be FAXED BACK to us at [phone] for Medicare purposes. Please let me know if there are questions or concerns regarding this plan of care. Physician Signature: Date: <Electronically signed by Ady Mauricio PT, Cert. T, OCS> 04/09/181941 CC: Tanmay Caruso MD JOVANNY Signed For Medicare only, by signing this I certify the plan of care. Physicians Signature Date MRA HEAD ONLY WITHOUT Observed: 04/09/2018 Status: F Source: [facility] CONTRAST 12:24 PM [facility] REPOSITORY [facility] Imaging Services [address] [place] [address] MRA Head ONLY without Contrast MR#: [id number] Acct: [id number] Name: FRANCA SILVERMAN Rep #: [id number] : 1955 M 62 From: Jackelin Rodriguez PCP: Tanmay Caruso MD Status: REG CLI Study: MRA Head ONLY without Contrast Date of Exam: 04/09/18 Exam# [id number] Ordering Dr: Jodee Sal ASSISTED LIVING MANAGERKeyshaC ADDENDUM by Jackelin Rodriguez on 04/12/18 at 0935 ADDENDUM COMPARISON: CTA of the head dated November 22, 2015 Electronically Signed: Jackelin Rodriguez MD at 9:35 EDT Tel , Service support , 04/12/18 0935 Date cc: GLADIS Sal; Tanmay Caruso MD * Signed ADDENDUM by Jackelin Rodriguez on 04/12/18 at 0935 MRI/MRA Head ONLY without Contrast 04/12/18 0942 Date cc: GLADIS Sal; Tanmay Caruso MD * Signed STUDY: MRA OF THE HEAD WITHOUT CONTRAST REASON FOR EXAM: Male, 62 years old. CVA h/o clot 03/22/18. Right arm weakness and numbness and chest surgery. TECHNIQUE: 3-D rjtf-iw-vzfrmn (TOF) imaging was performed with MIPs. The study was performed unenhanced. COMPARISON: None. FINDINGS: Normal bilateral petrous carotid arteries. Normal right cavernous carotid artery with a normal supraclinoid bifurcation. Normal left cavernous carotid artery with a normal supraclinoid bifurcation. Normal right A1 segments of the anterior cerebral artery. Normal left A1 segments of the anterior cerebral artery. Normal intact anterior communicating artery (ACOM). Normal bilateral A2 segments of the anterior cerebral arteries. Normal right M1 and M2 segments of the middle cerebral arteries, with a normal M1 bifurcation. Normal left M1 and M2 segments of the middle cerebral arteries, with a normal M1 bifurcation. There is non-visualization of the right posterior communicating artery (PCOM). There is non-visualization of the left posterior communicating artery (PCOM). Normal bilateral vertebral arteries. Normal basilar artery with a normal basilar bifurcation. The visualized bilateral superior cerebellar (SCA) arteries are normal. Normal bilateral P1, P2 and visualized P3 segments of the posterior cerebral arteries. There is no demonstrated aneurysm of the picayune of [place]. There is no major vessel occlusion or hemodynamically significant stenosis. There is no demonstrated abnormality of the visualized brain. MRI/MRA Head ONLY without Contrast IMPRESSION: Unremarkable MRA of the head Electronically Signed: Jackelin Rodriguez MD at 12:16 EDT Tel , Service support , CC: GLADIS Sal; Tanmay Caruso MD Can Sealer: Signed ADULT EVALUATION - SP Observed: 04/06/2018 Status: F Source: [place] 11:48 AM [facility] REPOSITORY [facility] Speech Pathology [facility] [address] [place] [address]. [address] [place] [address] Fax REHABILITATION SERVICES INITIAL EVALUATION MR#: [id number] Acct: [id number] Name: FRANCA SILVERMAN Rep #: [id number] : 1955 62 From: Dominique Villareal M.S., CCC-M[employer]HR[employer] GROWTH [employer]IA MIXER Referring Dr.: Tanmay Caruso MD Status: REG R Insurance: [facility] FOR [facility] SELF PAY INSURANCE History - History Date of Eval: 04/06/18 Date of Onset of Diagnosis: 03/22/18 Previous speech therapy: Yes Results: As an inpatient following CVA. Pt able to recall dysarthria strategies recommended during stay. Other Relevant Medical History/Diagnoses/Surgery: Pt with prior CVA 2015, with reported facial drooping but no speech/swallowing/cognitive- linguistic concerns. Medications related to this diagnosis: Lipitor and Aggrenox Smoking Status: Never smoker Hx Smoking: No Hx Tobacco Use: No - Pain Is pain an issue with your current prescribed condition?: No - Personal Patients Living Arrangements: With Significant Other Patient Allergies - Allergies Allergies No Known Allergies Allergy (Verified 11/22/15 07:30) Subjective Oral Motor - Subjective Patient Reports: Slurred Speech, Difficulty being Understood Facial Drooping: Right Objective Oral Motor - Oral Status Dentition: WNL - Labial Impairment: Mild Observation at Rest: Right Droop Pucker: Mild Retraction: Mild Alternating Pucker/Retraction: Mild Involuntary Movement noted: No - Lingual Impairment: Mild Observation: Deviated Right Protrusion: Mild Lateralization: Mild - Jaw Impairment: Mild - Oral Motor Comments Comments: Pt presents with mild right-sided hemiparesis effecting both strength and ROM of lingual and labial structures. The pt reports frequently biting his tongue, but denies numbness of any orofacial structures. Denies drooling, pocketing, or anterior spillage of bolus while eating. Denies sympoms of dysphagia. Subjective Dysarthria/Motor - Subjective Subjective: The pt presents with mild dysarthria characterized by imprecise articulation and fast rate. Pt reports a fast rate at baseline for which he was often chastized. He reports his speech has improved moderately since his recent CVA, but is not yet at baseline. The pt was 100% intelligible to this unfamiliar listener in unknown contexts in the quiet, distraction-free evaluation room. Objective Dysarthira/Motor - Speech Intelligibility Conversation: Mild - Volume Volume: WNL - Awareness/Strategy Use Uses strategies intermittently to improve intelligibility or listener's understanding of message: Yes Plan - Plan Plan: Skilled speech therapy is warranted at this time to improve the pt's mild dysarthria to a more functional level across environments. - Recommendations Treatment Warranted: Yes - Frequency Frequency: 1x/Week Duration: 2 Months - Prognosis Prognosis: Excellent - Goals that are Established: Determination:: Goals will be added/modified as deemed necessary and appropriate. Therapy will be discontinued when results of re-evaluation indicate therapy is no longer needed or lack of progress has been documented. - Goal #1-5 Goal #1: The pt will independently utilize compensatory dysarthria strategies to improve speech intelligibility during conversational interactions with 90% accuracy in 3/4 sessions. Goal #2: As judged by the MUSHR[employer] GROWTH MEDIA MIXER, the pt will independently demonstrate improved orofacial strength and ROM secondary to completion of orofacial strengthening exercises with 90% accuracy in 3/4 sessions. Education - Patient has Indicated that the Following Identified Educational Needs: None, Hearing/Vision/Speech Impaired The Patient has indicated that they have no educational or learning abilities that may effect their care.: Yes - Patient Instruction Patient Education: Diagnosis, Treatment Plan, Goals <Electronically signed by Dominique Villareal M.S. [facility]-[employer]> 04/06/18 1148 CC: Tanmay Caruso MD [place] Signed For Medicare only, by signing this I certify the plan of care. Physicians Signature Date OT GENERAL EVALUATION Observed: 04/04/2018 Status: F Source: [place] 2:26 PM [facility] REPOSITORY [facility] Occupational Therapy [address] [place] [address] Fax REHABILITATION SERVICES INITIAL EVALUATION MR#: [id number] Acct: [id number] Name: FRANCA SILVERMAN Rep #: [id number] : 1955 62 From: Mahnaz Kidd Referring Dr.: Tanmay Caruso MD Status: REG RCR [facility] [place] Eval Date: SELF PAY INSURANCE Patient's Visit Information FRANCA SILVERMAN is a 62 year old M, referred to Occupational Therapy by Tanmay Caruso, with a diagnosis of Stroke. Date of Evaluation: 04/03/18 Occupational Therapist: Mahnaz Kidd - Subjective Subjective: Pt seen for initial occupational therapy evaluation after suffering CVA 03/22/18 while on vacation in [facility]. Pt now demonstrates increased weakness, decreased coordination and function of R UE. Pt is R hand dominent. Pt has companions home health aide coming in to help w/ IADLs starting today. Pt lives w/ spouse, but spouse in unable to help assist pt with BADLs/IADLs. Pt completing BADLs using L hand primarily. Pt driving. Pt reports walk in shower w/ grab bars, std toilet seats. - Objective Objective/Observation: decreased functional use of R UE, decreased R UE coordination and strength. - ROM Elbow: R AROM -30/95 Wrist: R AROM 0/25' ROM Comments: R Shoulder abduction AROM 75', R Shoulder flexion AROM 74' - Strength Welder Manufacture: R 10 L 70 Lateral Pinch: R 4 L 18 Strength Comments: R UE 2/5. L UE 4+/5 - Edema Other: slight edema R elbow with brusing - Sensation Sensation Comments: No numbness and tingling - DASH-Disabilities of Arm, Shoulder AND Hand DASH Sum: 85 - Goals Goal:: Pt will progress w/ R UE generalized strength 4/5 by d/c from OT to increase independence with BADLs. Pt will progress w/ R hand outreach educator strength by 60# to assist with opening containers R hand independnently by d/c from OT services. Goal:: Pt will progress w/ R AROM elbow extension by 30' and flexion 15' by d/c from OT services. Pt will progress w/ R AROM wrist extension by 30' and flexion 10' by d/c from OT services. Goal:: Pt will progress w/ R hand coordination skills to manipulate fasteners (buttons, zippers, snapes) independently for dressing tasks and tie shoes independently w/o extra time needed by d/c from OT services. Goal:: Pt will progress w/ abiltiy to grasp eating utensils correctly with R hand and cut food up independently by d/c from OT services. Goal:: Pt will be able to use R hand to grasp writing utensil and write personal information legibily in 3/4 trials. Goal:: Pt will be educated on R UE HEP with good understanding and demo 100%x. - Rehabilitation General Assessment: Pt demonstrated decreased functional use of R UE secondary to new onset stroke affecting R side. Pt demonstrates decreased ROM and strength of R UE with decreased coordination skills of R UE. Rehabilitation Potential: Good - Anticipated Interventions Anticipated Interventions: A/AAROM/PROM, Strengthening, Edema Control, Massage, Modalities, Orthoses, Joint Protection/Energy Conservation, Fine Motor Coord/Cory, Neuro Reeducation, ADL Training, Education re Self Massage Techniques, Home Program - Visit Plan Frequency: 2-3x /Week Duration: 4-6 Weeks General Plan: Pt demonstrated decreased functional use of R UE secondary to new onset stroke affecting R side. Pt demonstrates decreased ROM and strength of R UE with decreased coordination skills of R UE. Pt would benefit from direct occupational therapy services to increase R UE AROM, strength and fine motor coordination skills to increase independence with BADLs and functional living tasks to increase pt's quality of life. TEXT: Thank you for the opportunity to evaluate your patient. For Medicare and Medicare HMO plans, please review the plan of care and approve it. It will need to be FAXED BACK to us at [phone] for Medicare purposes. Please let me know if there are questions or concerns regarding this plan of care. Physician Signature: Date: <Electronically signed by Mahnaz Kidd > 04/04/18 1426 CC: Tanmay Caruso MD KIKA Signed For Medicare only, by signing this I certify the plan of care. Physicians Signature Date BASIC METABOLIC Collected: 09/14/2017 Status: F Source: [place] PROFILE (BMP) 3:36 PM [facility] REPOSITORY TYPE CODE TESTS RESULT OUT OF RANGE REFERENCE UNITS LAB L501.0100 74-106 mg/dL Normal GLU 92 Result Comment: Please note revised GLUCOSE reference range effective 2017. LAB L501.1000 7-18 mg/dL Normal BUN 14 LAB L501.1100 0.70-1.30 mg/dL Normal CREAT,SERUM 1.13 Result Comment: The validity of the calculated GFR AND GFRAA in patients over 70 years has not been determined. Clinical correlation is essential. LAB L501.1110 >60 mL/min Normal EST GFR 70 Result Comment: Non- GFR Calc LAB L501.1115 >60 mL/min Normal EST GFR - AA 85 Result Comment: GFR Calc LAB L501.1300 10-20 RATIO Normal BUN/CRE 12.4 LAB L501.2200 8.5-10.1 mg/dL CA Normal 9.1 LAB L501.5300 136-145 mmol/L NA Normal 137 LAB L501.5600 3.5-5.1 mmol/L K Normal 4.3 LAB L501.5900 98-107 mmol/L CL Normal 103 LAB L501.6100 21.0-32.0 mmol/L Normal CO2 28.0 LAB L501.6200 5-15 Normal GAP 6 Performed By: #### L500.2500, L500.3400, L500.4100 #### [facility] [address] [place], [address] LIVER PROFILE Collected: 09/14/2017 Status: F Source: [place] 3:36 PM [facility] REPOSITORY TYPE CODE TESTS RESULT OUT OF RANGE REFERENCE UNITS LAB L501.1500 6.4-8.2 g/dL Normal T PROT 7.3 LAB L501.1800 3.2-5.0 g/dL Normal ALB 4.4 LAB L501.1950 2.2-4.2 g/dL Normal GLOB 2.9 LAB L501.4100 15-37 U/L Normal AST 20 LAB L501.4305 45-117 U/L Normal ALK P 78 LAB L501.4405 16-61 U/L Normal ALT 19 Result Comment: Please note revised ALT reference range effective 2017. LAB L501.4600 0.20-1.00 mg/dL Normal T BILI 0.50 LAB L501.4700 0.00-0.30 mg/dL Normal D BILI 0.14 Performed By: #### L500.2500, L500.3400, L500.4100 #### [facility] [address] [place], [address] LIPID PROFILE Collected: 09/14/2017 Status: F Source: [place] 3:36 PM [facility] REPOSITORY TYPE CODE TESTS RESULT OUT OF RANGE REFERENCE UNITS LAB L501.4900 200 mg/dL Normal CHOL 116 Result Comment: <200 mg/dL Desirable 200-240 mg/dL Borderline >240 mg/dL High Risk LAB L501.5000 mg/dL Normal TRIG 92 Result Comment: The drugs N-Acetylcysteine and Metamizole may falsely depress this assay. Serum Triglycerides Reference Interval Normal <150 mg/dL Borderline high 150 - 199 mg/dL High 200 - 499 mg/dL Very High > or = 500 mg/dL LAB L501.6400 mg/dL Normal HDL 41 Result Comment: The drugs N-Acetylcysteine and Metamizole may falsely depress this assay. Reference Range HDL <40 mg/dL Low HDL Cholesterol HDL >or= 60 mg/dL High HDL Cholesterol LAB L501.6500 0-130 mg/dL Normal LDL 57 LAB L501.6600 5-40 mg/dL Normal VLDL 18 Performed By: #### L500.2500, L500.3400, L500.4100 #### [facility] [address] [place], [address] ALLERGIES ALLERGIES DATE TYPE / CODE NAME / CODE REACTION SEVERITY SOURCE 04/25/2018 Drug No Known Unknown [facility] Allergy/4160 Allergies/F00 Hospital 95949(SNOMED 3103133(RXNOR Repository CT) M) ENCOUNTERS ENCOUNTERS ADMIT/DISCHARGE ACCOUNT ADMITTING ENCOUNTER LOCATION SOURCE NUMBER CLASS 06/13/2018 [id number] Ambulatory [place] 5 [facility] ing:MFPLAB Repository 06/07/2018 [id number] Ambulatory [facility] 2 [facility] ing:OT Repository 05/21/2018 [id number] Ambulatory BMSBuilding:B [place] 5 [facility] Repository 05/21/2018/ [id number] Ambulatory BMSBuilding:W Erica 8 7 [facility] Repository 05/21/2018/ [id number] Ambulatory [place] 8 0 [facility] Hospital ing:CLSP Repository 05/15/2018/ [id number] Ambulatory BMSBuilding:B [place] 8 5 [facility] Repository 05/15/2018 [id number] Ambulatory [place] 4 [facility] Hospital ing:LAB Repository 05/14/2018 [id number] Ambulatory BMSBuilding:W Erica 8 [facility] Repository 05/14/2018 [id number] Ambulatory Erica Erica 6 [facility] Hospital ing:CVS Repository 04/25/2018/ [id number] Ambulatory BMSBuilding:B [place] 8 8 [facility] Repository 04/24/2018 [id number] Ambulatory BMSBuilding:B [place] 4 [facility] Repository 04/10/2018 [id number] Ambulatory BMSBuilding:W Erica 7 [facility] Repository 04/10/2018 [id number] Ambulatory Erica Erica 3 [facility] Hospital ing:CVS Repository 04/09/2018 [id number] Ambulatory [place] 2 [facility] Hospital ing:MRI Repository 09/14/2017 [id number] Ambulatory Erica Erica 3 [facility] Hospital ing:MFPLAB Repository PAYERS PAYERS ENCOUNTER GUARANTOR PAYER SUBSCRIBER SOURCE 06/13/2018 FRANCA F Primary FRANCA F Erica [id number] Insurance:CARESOURCE CLIFTONDOB: [facility] [id number] Number[place] Repository [id number]: [phone] [id number] [phone] () Date:3624-65-45VU [address] [place] [address]ND: 06/13/2018 Secondary NOT GIVENUNK Erica Insurance:SELF PAY [facility] ([place], [place]) Number: Effective Repository Date:2018-06-13 06/07/2018 FRANCA F Primary FRANCA F Pearl [id number] Insurance:CARESOURCE CLIFTONDOB: Community [address] JUST FOR [id number] [place] Number: Repository [address]Tyb: 330 [id number] [phone] (HP) Date:4232-92-04GR [address] [place] [address]ZT: 06/07/2018 Secondary NOT GIVENUNK Pearl Insurance:SELF PAY [facility]: Effective Repository Date:2018-04-02 05/21/2018 FRANCA Wolff Primary FRANCA Wolff Erica [id number] Insurance:CARESOURCE CLIFTONDOB: Community [address] JUST FOR [facility] [id number] Number: Repository [address]Gcd: 330 [id number] [phone] (HP) Date:5620-39-21FM [address] [address]CC: 05/21/2018 Secondary NOT GIVENUNK Pearl Insurance:SELF PAY [facility] Number: Effective Repository Date:2018-05-21 05/21/2018 FRANCA Wolff Primary FRANCA Wolff Erica [id number] Insurance:CARESOURCE CLIFTONDOB: Community [address] JUST FOR [facility] [id number] Number: Repository [address]Wat: 330 [id number] [phone] (HP) Date:9191-00-73PT [address] [place] [address]KV: 05/21/2018 Secondary NOT GIVENUNK Pearl Insurance:SELF PAY [facility] Number: Effective Repository Date:2018-05-21 05/21/2018 FRANCA Wolff Primary FRANCA Duarteoster [id number] Insurance:CARESOURCE CLIFTONDOB: Community [address] JUST FOR [facility] [id number] [facility] Number: Repository [address]Crr: 330 [id number] [phone] (HP) Date:5141-03-64WR [address] [address]NE: 05/21/2018 Secondary NOT GIVENUNK Pearl Insurance:SELF PAY Community [facility] Number: Effective Repository Date:2018-05-14 05/15/2018 FRANCA Wolff Primary FRANCA Wolff Pearl [id number] Insurance:CARESOURCE CLIFTONDOB: Community [address] [facility] [id number] Number: Repository [address]Cjk: 330 [id number] [phone] () Date:1218-85-09HT [address] [address]WP: 05/15/2018 Secondary NOT GIVENUNK Pearl Insurance:SELF PAY [facility] Number: Effective Repository Date:2018-05-15 05/15/2018 FRANCA Wolff Primary FRANCA Wolff Erica [id number] Insurance:CARESOURCE CLIFTONDOB: Community [address] [facility] [id number] Number: Repository [address]Adr: 330 [id number] [phone] () Date:2884-10-07NA[address] [address]SB: 05/15/2018 Secondary NOT GIVENUNK Erica Insurance:SELF PAY [facility] Number: Effective Repository Date:2018-05-15 05/14/2018 FRANCA Wolff Primary FRANCA Wolff Erica [id number] Insurance:CARESOURCE CLIFTONDOB: Community [address] JUST FOR [facility] [id number] Number: Repository [address]Fyh: 330 [id number] [phone] () Date:0774-76-66VY [address] [place] [address]IH: 05/14/2018 Secondary NOT GIVENUNK Erica Insurance:SELF PAY Community [facility] Number: Effective Repository Date:2018-05-14 05/14/2018 FRANCA Wolff Primary FRANCA Wolff Erica [id number] Insurance:CARESOURCE CLIFTONDOB: Community [address] JUST FOR [facility] [id number] [facility] Number: Repository [address]Hgx: 330 [id number] [phone] (HP) Date:9831-65-66SX [address] [place] [address]ND: 05/14/2018 Secondary NOT GIVENUNK Eirca Insurance:SELF PAY [facility] Number: Effective Repository Date:2018-04-25 04/25/2018 FRANCA F Primary FRANCA F Erica [id number] Insurance:CARESOURCE CLIFTONDOB: Community [address] JUST FOR [facility] [id number] [facility] Number: Repository [address]Ato: 330 [id number] [phone] (HP) Date:4021-59-90QG [address] [address]ZZ: 04/25/2018 Secondary NOT GIVENUNK Pearl Insurance:SELF PAY [facility] Number: Effective Repository Date:2018-04-20 04/24/2018 FRANCA F Primary FRANCA F Pearl [id number] Insurance:CARESOURCE CLIFTONDOB: [facility] [address] JUST FOR [facility] [id number] Regional Medical [facility] Number: Repository [address]Oia: (330 [id number] [phone] (HP) Date:8685-06-64CM [address] [address]GY: 04/24/2018 Secondary NOT GIVENUNK Erica Insurance:SELF PAY [facility] Number: Effective Repository Date:2018-04-24 04/10/2018 FRANCA F Primary FRANCA F Pearl [id number] Insurance:CARESOURCE CLIFTONDOB: Community [address] JUST FOR [facility] [id number] Regional Medical [facility] Number: Repository [address]Qjo: 330 [id number] [phone] (HP) Date:5961-61-15KH [address] [place] [address]OJ: 04/10/2018 Secondary NOT GIVENUNK Pearl Insurance:SELF PAY Community [facility] Number: Effective Repository Date:2018-04-10 04/10/2018 FRANCA Wolff Primary FRANCA Maldonado [id number] Insurance:CARESOURCE CLIFTONDOB: Community [facility] JUST FOR [facility] [id number] Number: Repository [address]Nay: 330 [id number] [phone] () Date:6245-32-94XK [address] [place] [address]JP: 04/10/2018 Secondary NOT GIVENUNK Pearl Insurance:SELF PAY [facility] Number: Effective Repository Date:2018-04-03 04/09/2018 FRANCA Wolff Primary FRANCA Maldonado [id number] Insurance:CARESOURCE CLIFTONDOB: [facility] JUST FOR [facility] [id number] Number: Repository [address]Ckq: 330 [id number] [phone] () Date:7341-54-30GL [address] [place] [address]AQ: 04/09/2018 Secondary NOT GIVENUNK Pearl Insurance:SELF PAY [facility] Number: Effective Repository Date:2018-04-03 09/14/2017 Franca Wolff Primary Franca Maldonado [id number] Insurance:CARESOURCEP CliftonDOB: [facility] Number: [id number], [place] [id number] Repository [address]Yun: (330) Date:2017-09-14P O [phone] () [address]ATTN: [place] [address]IG: 09/14/2017 Secondary NOT GIVENUNK Pearl Insurance:SELF PAY [facility] Number: Effective Repository Date:2017-09-14
== END ==
PROVIDERS: Family Provider Family Medicine; PCP Family Medicine; Visit Provider Family Medicine
DX: E11.9 Type 2 diabetes mellitus without complications (principal)
CPT/HCPCS: 36415; 80061; 80076; 83036

== ENCOUNTER → 2018-12-12 | Outpatient (CLI) | payer OTHER, SELFPAY ==
[2018-10-24 09:51] VITALS: BMI 29.7
[2018-12-12 13:11] LABS: ALB/GLOB Ratio 1.5 RATIO (0.9-2.4); AST(SGOT) 26 U/L (15-37); Alanine Aminotransfer ALT/SGPT 29 U/L (16-61); Albumin, Serum 4.1 g/dL (3.2-5.0); Alkaline Phosphatase 89 U/L (45-117); Anion Gap 10 (5-15); BUN 22 mg/dL (7-18); BUN/Creat Ratio 20.6 RATIO (10-20); Calcium,Total 9.4 mg/dL (8.5-10.1); Chloride 98 mmol/L (98-107); Creatinine, Serum 1.07 mg/dL (0.70-1.30); EST Glomerular Filtration Rate 74 mL/min (>60); Est Glom Filt Rate - Afr Amer 90 mL/min (>60); Globulin 2.7 g/dL (2.2-4.2); Glucose 92 mg/dL (74-106); Potassium 4.2 mmol/L (3.5-5.1); Protein, Total 6.8 g/dL (6.4-8.2); Sodium Level 136 mmol/L (136-145)
== END | disposition home or self-care (01) ==
LOC: MFPLAB 10:02
PROVIDERS: Family Provider Family Medicine; PCP Family Medicine; Referring Provider Family Medicine; Visit Provider Family Medicine
DX: E11.9 Type 2 diabetes mellitus without complications (principal)
CPT/HCPCS: 36415; 80053

== ENCOUNTER 2019-05-09 23:47 | Emergency (ER) | payer OTHER, SELFPAY ==
[2018-10-24 09:51] VITALS: BMI 29.7
[2019-05-09 23:48] VITALS: BP 133/59; PULSE 68; RESP 18; TEMP 37.1; O2SAT 98; BMI 30.8
[2019-05-09 23:56] VITALS: TEMP 37.1
--- NOTE | 2019-05-10 00:17 | ED.DCSUM_ITS ---
History of Present Illness Chief Complaint: Cellulitis Informant: Patient, Significant Other Onset: Yesterday Context: Gradual Onset Timing: Continuous Quality of Pain: - - sore Location: LLE Current Severity: Moderate Maximum Severity: Moderate Worsened by: palpation Relieved by: nothing Associated Symptoms: Negative for: Parasthesia, Weakness, Loss of Funtion Narrative: Patient is had about 36 hours worth of mild pain and redness that started in the distal left lower extremity and has been ascending. He has no systemic symptoms. No recent injury. Swelling and warmth in the red areas. No history of DVTs. states he had fevers off and on along with malaise and myalgias for the past week or so but they resolved around the time this started and he has had no fevers all day today, he presents just before midnight. He is a diab etic. He had an abrasion on his foot near the area where this started but not exactly at the same area. It was old, maybe a month or more. - Past Medical History (1) Nonsustained ventricular tachycardia Status: Resolved (2) Paroxysmal atrial fibrillation Status: Chronic (3) CVA (cerebral vascular accident) Status: Chronic (4) Essential (primary) hypertension Status: Chronic (5) Premature ventricular contractions Status: Chronic Past Medical History - Allergies and Home Meds Allergies/Adverse Reactions: Allergies No Known Allergies Allergy (Verified 05/09/19 23:51) Primary Care Physician: Tanmay Caruso MD [Primary Care Provider] - Surgical History: no surgical history Lives: Spouse/ Significant Other Smoking Status: Never smoker - Family History Maternal Family History: Family History (Last Reviewed 04/25/18 @ 09:29 by Rudy Cortes MD) Mother Heart disease Father Heart disease Family History: Reports: No pertinent history Paternal Family History: Family History (Last Reviewed 04/25/18 @ 09:29 by Rudy Cortes MD) Mother Heart disease Father Heart disease Family History: Reports: Cancer - prostate, Heart Disease - age 84 Review of Systems General: Denies: Chills, Fever, Sweats Eyes: Denies: Visual changes - bilaterally, Diplopia ENT: Denies: Rhinorrhea, Sore throat Cardiovascular: Denies: Chest pain, Palpitations Respiratory: Denies: Dyspnea, Cough, Dyspnea on exertion Gastrointestinal: Denies: Abdominal pain, Nausea, Vomiting, Diarrhea, Melena, Hematochezia Genitourinary: Denies: Dysuria, Hematuria, Frequency Musculoskeletal: Reports: Swelling, Extremity Pain. Denies: Back pain Skin: Reports: Rash, Wounds. Denies: Abscess Neurological: Denies: Headache, Weakness, Numbness Physical Exam Vital Signs/Narrative: Vital Signs Temp Pulse Resp BP Pulse Ox 05/09/19 23:56 98.8 F 05/09/19 23:48 98.8 F 68 18 133/59 H 98 Inital Vital Signs reviewed: Yes General: Well nourished, Well developed Head: Normocephalic, Atraumatic Eyes: Perrl, EOMI ENT: No Trauma, Moist Mucous Membranes Neck: Nontender, Full ROM Cardiovascular: Regular rate, Regular rhythm - With frequent irregularities that are brief, consistent with PVCs, No murmurs Respiratory: No distress, CTA bilaterally, Chest nontender Abdomen: Soft, Nontender, Nondistended, Normal bowel sounds Back: Nontender. Negative for: Spinal Tenderness Skin: Rash - Patchy mildly tender, warm erythema left lower extremity, with evidence of lymphangitis up the medial aspect of the thigh to the groin. No palpable lymphadenopathy there. No abscesses. Healed abrasion medial left foot without any sign of an abscess or major cellulitis in this area. The redness is more prominent just proximal to the ankle. Neurological: Alert, Oriented x3, Cranial nerves II-XII grossly intact, Normal Strength, Normal Sensation, Normal Gait Psychological: Normal affect, Normal Mood Diagnostic/Tx/Re-eval Laboratory Tests 05/10/19 05/10/19 Range/Units 00:20 00:20 WBC 9.3 (4.4-11.0) K/mm3 RBC 3.75 L (4.6-6.2) M/mm3 Hgb 10.8 L (13.0-16.5) g/dL Hct 32.8 L (40-54) % MCV 87.5 (80-94) fL MCH 28.8 (27.0-32.0) pg MCHC 32.9 (32-36) g/dL RDW Std Deviation 42.5 (35.1-43.9) fl RDW Coeff of Simon 13.3 (11.6-14.6) % Plt Count 185 (150-450) K/mm3 MPV 9.0 (6.2-12.0) fl Immature Gran % (Auto) 0.400 (0.0-0.9) % Neut % (Auto) 77.7 H (47-70) % Lymph % (Auto) 10.6 L (19-41) % Posey % (Auto) 10.0 (0-10) % Eos % (Auto) 1.1 (0-5) % Baso % (Auto) 0.2 (0-1) % Absolute Neuts (auto) 7.2 (2.0-7.7) X10^3/uL Absolute Lymphs (auto) 0.99 (0.83-4.51) X10^3/uL Nucleated RBC % 0 (0-5) % Sodium 130 L (136-145) mmol/L Potassium 3.7 (3.5-5.1) mmol/L Chloride 96 L (98-107) mmol/L Carbon Dioxide 24.0 (21.0-32.0) mmol/L Anion Gap 10 (5-15) BUN 39 H (7-18) mg/dL Creatinine 1.35 H (0.70-1.30) mg/dL Estim Creat Clear Calc 56.01 ml/min Est GFR (MDRD) Af Amer 69 (>60) mL/min Est GFR (MDRD) Non-Af 57 L (>60) mL/min BUN/Creatinine Ratio 28.9 H (10-20) RATIO Glucose 113 H (74-106) mg/dL Calcium 9.0 (8.5-10.1) mg/dL - Medical Decision Making There are aspects of this rash that resemble eczema. He is not very tender in the erythematous areas, and he denies having significant pain. However there is lymphangitis up the medial aspect of the thigh, and it all came on fairly quickly, suspicious for strep infection until proven otherwise in my opinion. I did some blood cultures given the history of diabetes and the lymphangitis. There are no palpable cords to suggest this is a DVT. He was given a dose of IV Unasyn, prescribed Keflex, and we outlined the red areas in ink. He is comfortable with this plan of outpatient treatment, follow-up, we discussed reasons to return. ED Disposition - Plan for ED Patient: Disposition: Home or Assisted Living Diagnosis: Cellulitis of left lower extremity Instructions: Cellulitis Prescriptions: Cephalexin [Keflex] 500 mg PO 4X/DAY 10 Days #40 cap Transmission Status: Pending to [facility] Referrals: Tanmay Caruso MD [Primary Care Provider] - 3-5 Days
[2019-05-10 00:36] LABS: Absolute Lymphocyte Count 0.99 X10^3/uL (0.83-4.51); Absolute Neutrophil Count 7.2 X10^3/uL (2.0-7.7); Basophil# 0.02 X10^3/uL; Basophil% 0.2 % (0-1); Eosinophils% 1.1 % (0-5); Hematocrit 32.8 % (40-54); Hemoglobin 10.8 g/dL (13.0-16.5); Lymphocyte # 0.99 X10^3/ul (4.0); Lymphocyte % 10.6 % (19-41); Mean Corp Hgb Conc 32.9 g/dL (32-36); Mean Corpuscular Hgb 28.8 pg (27.0-32.0); Mean Corpuscular Volume 87.5 fL (80-94); Monocyte# 0.93 X10^3/uL; NRBC Flagged by Analyzer 0 % (0-5); Neutrophil # 7.23 X10^3/uL (2.7-7.7); Neutrophil % 77.7 % (47-70); Platelet Count 185 K/mm3 (150-450); RBC Distribution Width CV 13.3 % (11.6-14.6); RBC Distribution Width SD 42.5 fl (35.1-43.9); Red Blood Count 3.75 M/mm3 (4.6-6.2); White Blood Count 9.3 K/mm3 (4.4-11.0)
[2019-05-10 00:49] LABS: Anion Gap 10 (5-15); BUN 39 mg/dL (7-18); BUN/Creat Ratio 28.9 RATIO (10-20); Chloride 96 mmol/L (98-107); Creatinine, Serum 1.35 mg/dL (0.70-1.30); EST Glomerular Filtration Rate 57 mL/min (>60); Est Glom Filt Rate - Afr Amer 69 mL/min (>60); Estimated Creatinine Clearance 56.01 ml/min; Glucose 113 mg/dL (74-106); Potassium 3.7 mmol/L (3.5-5.1); Sodium Level 130 mmol/L (136-145)
[2019-05-10 01:28] VITALS: BP 128/76; PULSE 70; RESP 17; TEMP 37; O2SAT 97
== END 2019-05-10 01:30 | disposition home or self-care (01) ==
PROVIDERS: Emergency Provider Emergency Medicine; Family Provider Family Medicine; PCP Family Medicine
DX: L03.116 Cellulitis of left lower limb (principal); I48.0 Paroxysmal atrial fibrillation; Z86.73 Personal history of transient ischemic attack (TIA), and cerebral infarction without residual deficits; E11.9 Type 2 diabetes mellitus without complications; I10 Essential (primary) hypertension; Z79.899 Other long term (current) drug therapy
CPT/HCPCS: 80048; 85025; 87040; 96365; 99283; J7050; A4216; J0295

== ENCOUNTER 2019-05-13 13:14 | Inpatient (IN) | payer OTHER, SELFPAY ==
[2019-05-13 13:16] VITALS: BP 128/60; PULSE 100; RESP 16; TEMP 37; O2SAT 97; BMI 29.6
[2019-05-13 14:35] LABS: Absolute Lymphocyte Count 1.23 X10^3/uL (0.83-4.51); Absolute Neutrophil Count 11.1 X10^3/uL (2.0-7.7); Basophil# 0.06 X10^3/uL; Basophil% 0.4 % (0-1); Eosinophils% 0.7 % (0-5); Hematocrit 33.5 % (40-54); Hemoglobin 10.9 g/dL (13.0-16.5); Lymphocyte # 1.23 X10^3/ul (4.0); Lymphocyte % 8.8 % (19-41); Mean Corp Hgb Conc 32.5 g/dL (32-36); Mean Corpuscular Volume 89.1 fL (80-94); Mean Platelet Vol. 8.8 fl (6.2-12.0); Monocyte# 1.11 X10^3/uL; Monocyte% 7.9 % (0-10); NRBC Flagged by Analyzer 0 % (0-5); Neutrophil # 11.12 X10^3/uL (2.7-7.7); Neutrophil % 79.6 % (47-70); Platelet Count 272 K/mm3 (150-450); RBC Distribution Width CV 13.1 % (11.6-14.6); RBC Distribution Width SD 42.7 fl (35.1-43.9); Red Blood Count 3.76 M/mm3 (4.6-6.2)
[2019-05-13 14:55] LABS: ALB/GLOB Ratio 0.8 RATIO (0.9-2.4); AST(SGOT) 24 U/L (15-37); Alanine Aminotransfer ALT/SGPT 34 U/L (16-61); Albumin, Serum 3.4 g/dL (3.2-5.0); Alkaline Phosphatase 122 U/L (45-117); Anion Gap 6 (5-15); BUN 17 mg/dL (7-18); BUN/Creat Ratio 14.4 RATIO (10-20); Calcium,Total 9.2 mg/dL (8.5-10.1); Chloride 97 mmol/L (98-107); Creatinine, Serum 1.18 mg/dL (0.70-1.30); EST Glomerular Filtration Rate 66 mL/min (>60); Est Glom Filt Rate - Afr Amer 80 mL/min (>60); Estimated Creatinine Clearance 64.08 ml/min; Globulin 4.5 g/dL (2.2-4.2); Glucose 107 mg/dL (74-106); Potassium 3.8 mmol/L (3.5-5.1); Protein, Total 7.9 g/dL (6.4-8.2); Sodium Level 131 mmol/L (136-145)
[2019-05-13 15:33] VITALS: BP 118/66; PULSE 87; RESP 16; O2SAT 100
--- NOTE | 2019-05-13 16:06 | ED.VIS.GEN ---
History of Present Illness Chief Complaint: Cellulitis Informant: Patient Narrative: Patient was recently seen for left lower extremity cellulitis, he was given IV antibiotics and discharged home with Keflex although some misunderstanding he did not take the Keflex. He presented to his PCPs office with worsening erythema, and edema. He was sent for admission and IV antibiotics. He denies any fever chills cough or congestion Past Medical History - Allergies and Home Meds Allergies/Adverse Reactions: Allergies No Known Allergies Allergy (Verified 05/13/19 13:15) Primary Care Physician: Tanmay Caruso MD [Primary Care Provider] - Past Medical History: - - Diabetes, hypertension Surgical History: no surgical history Smoking Status: Never smoker - Family History Maternal Family History: Family History (Last Reviewed 04/25/18 @ 09:29 by Rudy Cortes MD) Mother Heart disease Father Heart disease Family History: Reports: No pertinent history Paternal Family History: Family History (Last Reviewed 04/25/18 @ 09:29 by Rudy Cortes MD) Mother Heart disease Father Heart disease Family History: Reports: Cancer - prostate, Heart Disease - age 84 Review of Systems General: Denies: Fever Eyes: Denies: Visual changes - bilaterally Cardiovascular: Denies: Chest pain Respiratory: Denies: Dyspnea, Cough Gastrointestinal: Denies: Abdominal pain, Nausea Musculoskeletal: Reports: Extremity Pain Skin: Reports: Wounds Neurological: Denies: Weakness Hematologic: Denies: Easy bruising Allergy: Denies: Uticaria Physical Exam Vital Signs/Narrative: Vital Signs Temp Pulse Resp BP Pulse Ox 05/13/19 15:33 87 16 118/66 100 05/13/19 13:16 98.6 F 100 16 128/60 H 97 General: Well nourished, Well developed Head: Normocephalic ENT: Moist mucous membranes Cardiovascular: Regular rate, Regular rhythm Respiratory: No distress Abdomen: Soft, Nontender Back: Normal Inspection Extremities: - - Cellulitis, there is a small ulcerated lesion posterior calf region. There is no crepitus. There is no abscess Skin: - - Cellulitis as above Neurological: Normal Strength, Normal Sensation Psychological: Normal affect Diagnostic/Tx/Re-eval - Medical Decision Making Patient is given IV antibiotics, he does have leukocytosis I will admit. Admit stable condition ED Disposition - Plan for ED Patient: Disposition: Acute Care Hospital [facility] Instructions: Cellulitis Referrals: Tanmay Caruso MD [Primary Care Provider] -
--- NOTE | 2019-05-13 16:20 | HP.PCM_ITS ---
Problem List (1) Nonsustained ventricular tachycardia Status: Resolved (2) Paroxysmal atrial fibrillation Status: Chronic (3) Premature ventricular contractions Status: Chronic (4) CVA (cerebral vascular accident) Status: Chronic (5) Essential (primary) hypertension Status: Chronic (6) Cellulitis of left lower leg Status: Acute History of Present Illness Date of Admission: 05/13/19 Chief Complaint: Left leg redness, erythema cellulitis The patient is a 63 year old M with history of diabetes mellitus type 2, CVA x2 and PVCs came to ER with left leg pain, erythema, warm along with subjective fever and chills gradually worsening for about 1 week. He came to ER on 05/10 and as per note was found to have cellulitis secondary to lymphangitis and was given IV Unasyn 1 dose and discharged on Keflex but patient perceived that he does not have to take antibiotic although there is prescription for cephalexin in ED note. Patient went to PCP office Dr. Tanmay Caruso and found worsening of cellulitis and was sent to ER. The vitals did not show fever but heart rate 100/min, blood pressure 128/60. No hypoxia. General labs shows leukocytosis 14,000 with left shift, 80% neutrophils. Sodium 131, glucose 107, alkaline phosphatase 122 rest within normal limit. Patient was given 1 dose of vancomycin and Zosyn and further admitted on the floor. [] Past Medical History Past Medical History (Chronic Problems): Chronic Problems (Last Updated 05/10/18 @ 09:44 by Zonia Yanez) Paroxysmal atrial fibrillation (Chronic) Premature ventricular contractions (Chronic) CVA (cerebral vascular accident) (Chronic) Essential (primary) hypertension (Chronic) Medical History: Medical History (Last Updated 05/10/18 @ 09:44 by Zonia Yanez) Nonsustained ventricular tachycardia (Resolved) I47.2 Paroxysmal atrial fibrillation (Chronic) I48.0 Premature ventricular contractions (Chronic) I49.3 CVA (cerebral vascular accident) (Chronic) I63.9 Essential (primary) hypertension (Chronic) I10 Obesity E66.9 Obstructive sleep apnea G47.33 Type 2 diabetes mellitus E11.9 Allergies No Known Allergies Allergy (Verified 05/13/19 13:15) Home Medications: Ambulatory Orders Medication Instructions Recorded Fluticasone 0.05% [Flonase Nasal 2 spray NASAL DAILY #1 bottle 12/01/15 [place]] Loratadine [Claritin] 10 mg PO DAILY tab 12/01/15 aspirin 25 mg-dipyridamole 200 mg 1 cap PO BID 04/25/18 capsule,ext.release 12 hr multiphase lisinopril 5 mg tablet 5 mg PO DAILY #90 tab 04/25/18 metoprolol succinate ER 25 mg 25 mg PO DAILY #90 tab 04/25/18 tablet,extended release 24 hr hydrochlorothiazide 25 mg tablet 25 mg PO DAILY 10/24/18 Metformin HCl 500 mg PO BID 05/13/19 Multivitamin with Minerals 1 ea PO DAILY 05/13/19 [Multiple Vitamin] Naproxen Sodium [Aleve] 220 mg PO DAILY PRN 05/13/19 Oxymetazoline HCl [Afrin] 2 puff NS DAILY PRN PRN 05/13/19 Surgical History: Surgical History (Last Updated 05/21/18 @ 12:41 by Znoia Yanez) History of left heart catheterization Onset Date: 05/21/18 Z98.890 Surgical History: no surgical history Psychiatric History: No pertinent psych hx Smoking Status: Never smoker - *Family History Maternal Family History: Family History (Last Reviewed 04/25/18 @ 09:29 by Rudy Cortes MD) Mother Heart disease Father Heart disease History Items: No pertinent history Paternal Family History: Family History (Last Reviewed 04/25/18 @ 09:29 by Rudy Cortes MD) Mother Heart disease Father Heart disease History Items: Cancer - prostate, Heart Disease - age 84 Review of Systems Constitutional: Reports: Chills, Fever, Malaise, Weakness. Denies: Weight Change HEENT: Denies: Head Aches, Sinus Congestion, Sinus Drainage Cardiovascular: Denies: Chest Pain, Palpitations Respiratory: Denies: Cough, Shortness of breath at rest, Sputum production Gastrointestinal: Denies: Abdominal Pain, Nausea, Vomiting Genitourinary: Denies: Dysuria Musculoskeletal: Denies: Joint Pain, Joint Tenderness Skin: Denies: Rash, Wounds Neurological: Reports: Balance problems, - - CVA with residual weakness in right upper extremity and right lower extremity on prolonged walking also sometimes mixing up words on his speech as per the . Denies: Focal weakness, Numbness, Tingling Psychiatric: Denies: Anxiety, Depression, Homicidal Ideations, Suicidal Ideations Hematologic/ Lymphatic: Denies: Easy Bruising, Easy Bleeding VTE Information - Inpt Only VTE Present on Admission: No VTE Mechan Device Prophylaxis: None VTE Pharm Prophylaxis ordered?: Yes Patient Problems: Active and Suspected Problems (Last Updated 05/10/18 @ 09:44 by Zonia Yanez) Cellulitis of left lower leg (Acute) - Physical Exam Vitals/I&O's: Vital Signs Temp Pulse Resp BP Pulse Ox 98.6 F 87 16 118/66 100 05/13/19 13:16 05/13/19 15:33 05/13/19 15:33 05/13/19 15:33 05/13/19 15:33 Oxygen Delivery Method Room Air Weight: 200 lb 14.4 oz Body Mass Index (BMI) 29.6 Finger Stick Blood Glucose 134 Intake and Output for Last 24 Hours 05/11/19 05/12/19 05/13/19 23:59 23:59 23:59 Intake Total 600 / 600 Balance 600 / 600 General: Alert, Oriented x3, Cooperative HEENT: Atraumatic, PERRLA, EOMI, Normocephalic Neck: Supple, No JVD, Negative Carotid Bruits Lungs: Clear to auscultation, Normal air movement, No rhonchi, No wheeze, No rales Cardiovascular: Regular rate, Regular Rhythm, Normal S1, Normal S2, No murmurs Abdomen: Bowel Sounds Present, Soft, Non Tender, Non-Distended Extremities: No edema, Capillary Refill Less than 3 Seconds Skin: Ulcer/ Wound - Small superficial with pinkish granulation tissue on floor after spontaneous rupture of blister. No purulent discharge. Surrounding erythema, tenderness, beefy duration right leg below knee level. Musculoskeletal: No Tenderness to Palpation of Joints or Extremities, Arthritic Changes Neurological: Cranial nerves II-XII grossly intact, Deep Tendon Reflexes 2+/4 and Symmetrical, - - Mild weakness of right upper extremity, 4/5. No obvious lower extremity weakness. Speech seems normal. Psych/Mental Status: Normal Affect, Appropriate Laboratory Results 05/13/19 14:20: WBC 14.0 H, RBC 3.76 L, Hgb 10.9 L, Hct 33.5 L, MCV 89.1, MCH 29.0, MCHC 32.5, RDW Std Deviation 42.7, RDW Coeff of Simon 13.1, Plt Count 272, MPV 8.8, Immature Gran % (Auto) 2.600 H, Neut % (Auto) 79.6 H, Lymph % (Auto) 8.8 L, [place] % (Auto) 7.9, Eos % (Auto) 0.7, Baso % (Auto) 0.4, Absolute Neuts (auto) 11.1 H, Absolute Lymphs (auto) 1.23, Nucleated RBC % 0 05/13/19 14:20: Sodium 131 L, Potassium 3.8, Chloride 97 L, Carbon Dioxide 28.0, Anion Gap 6, BUN 17, Creatinine 1.18, Estim Creat Clear Calc 64.08, Est GFR (MDRD) Af Amer 80, Est GFR (MDRD) Non-Af 66, BUN/Creatinine Ratio 14.4, Glucose 107 H, Calcium 9.2, Total Bilirubin 0.50, AST 24, ALT 34, Alkaline Phosphatase 122 H, Total Protein 7.9, Albumin 3.4, Globulin 4.5 H, Albumin/Globulin Ratio 0.8 L Assessment/Plan All Active Problems (Last Updated 05/10/18 @ 09:44 by Zonia Yanez) Cellulitis of left lower leg (Acute) Nonsustained ventricular tachycardia (Resolved) The patient is a 63 year old M with history of diabetes mellitus type 2, CVA x2 and PVCs came to ER with left leg pain, erythema, warm along with subjective fever and chills gradually worsening for about 1 week In ED, vitals did not show fever but heart rate 100/min, blood pressure 128/60. No hypoxia. General labs shows leukocytosis 14,000 with left shift, 80% neutrophils. Sodium 131, glucose 107, alkaline phosphatase 122 rest within normal limit. Patient was given 1 dose of vancomycin and Zosyn and further admitted on the floor. [] 1. Left lower leg cellulitis with blister, suggestive of staph infection (OR Strep lymphangitis as prior note of Dr. Ferris): Patient is being admitted on [facility] floor. Patient had 1 dose of vancomycin and Zosyn. Vitals are stable. No purulence on exam. Started on IV cefazolin 1 g every 8 hourly. MRSA DNA screen from base of ruptured blister and MRSA nasal screen. Follow CBC and BMP. 2. Diverticulitis type II: Glucose is controlled. A1c tomorrow. Accu-Chek before meals and at bedtime and cover with Humalog sliding scale. 3. 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 Patient is on Aggrenox, lisinopril and metoprolol at home. 4. Hypertension, PVCs and paroxysmal A. fib: Patient is not on anticoagulant currently in normal sinus rhythm. EKG ordered. Continue HCTZ. 5. Diverticulitis type II: Glucose is controlled. Continue metformin. DVT prophylaxis: Lovenox 40 mg subcu daily Code Visit Inpatient E&M: 21097 Init Hosp L2
[2019-05-13 18:11] VITALS: BMI 29.3
[2019-05-13 18:21] VITALS: BP 122/72; PULSE 96; RESP 18; TEMP 36.8; O2SAT 98
[2019-05-13 18:28] LABS: Magnesium 1.9 mg/dL (1.6-2.6)
[2019-05-13] MEDS: 0.9% Normal Saline 1,000 ML 100 ML IV (18:35)
[2019-05-13] MEDS: Enoxaparin 40 MG/0.4 ML Syringe SC (18:39)
[2019-05-13 18:41] LABS: Bedside Glucose 85 mg/dL (70-110)
[2019-05-13 20:09] LABS: M R Staph aureus DNA By PCR Negative (Negative); Probe Check PASS; Specimen Processing Control PASS; Staph aureus DNA By PCR NEGATIVE (Negative)
[2019-05-13 20:13] LABS: M R Staph aureus DNA By PCR Negative (Negative); Probe Check PASS; Specimen Processing Control PASS
[2019-05-13 20:38] VITALS: BP 125/71; PULSE 95; RESP 16; TEMP 36.6; O2SAT 100
[2019-05-13] MEDS: Cefazolin 1 GM/50 ML BAG IV (21:08)
[2019-05-13 22:10] LABS: Bedside Glucose 118 mg/dL (70-110)
[2019-05-14 03:11] VITALS: BP 138/92; PULSE 98; RESP 16; TEMP 37.2; O2SAT 97
[2019-05-14] MEDS: Acetaminophen 325 MG Tablet 650 MG PO ×2 (03:15→20:37)
[2019-05-14] MEDS: 0.9% Normal Saline 1,000 ML 100 ML IV (04:17)
[2019-05-14 06:18] LABS: Absolute Lymphocyte Count 1.01 X10^3/uL (0.83-4.51); Absolute Neutrophil Count 10.1 X10^3/uL (2.0-7.7); Basophil# 0.05 X10^3/uL; Basophil% 0.4 % (0-1); Eosinophil# 0.06 X10^3/uL; Eosinophils% 0.5 % (0-5); Hematocrit 30.7 % (40-54); Hemoglobin 9.8 g/dL (13.0-16.5); Lymphocyte # 1.01 X10^3/ul (4.0); Lymphocyte % 8.1 % (19-41); Mean Corp Hgb Conc 31.9 g/dL (32-36); Mean Corpuscular Hgb 28.3 pg (27.0-32.0); Mean Corpuscular Volume 88.7 fL (80-94); Mean Platelet Vol. 8.8 fl (6.2-12.0); Monocyte# 0.87 X10^3/uL; NRBC Flagged by Analyzer 0 % (0-5); Neutrophil % 81.5 % (47-70); Platelet Count 248 K/mm3 (150-450); RBC Distribution Width CV 13.2 % (11.6-14.6); Red Blood Count 3.46 M/mm3 (4.6-6.2); White Blood Count 12.4 K/mm3 (4.4-11.0)
[2019-05-14] MEDS: Cefazolin 1 GM/50 ML BAG IV ×3 (06:28→21:41)
[2019-05-14 06:35] LABS: Bedside Glucose 102 mg/dL (70-110)
[2019-05-14 06:42] LABS: Anion Gap 6 (5-15); BUN 13 mg/dL (7-18); BUN/Creat Ratio 12.6 RATIO (10-20); Calcium,Total 8.6 mg/dL (8.5-10.1); Chloride 104 mmol/L (98-107); Cholesterol 68 mg/dL (200); Creatinine, Serum 1.03 mg/dL (0.70-1.30); EST Glomerular Filtration Rate 77 mL/min (>60); Est Glom Filt Rate - Afr Amer 94 mL/min (>60); Estimated Creatinine Clearance 73.41 ml/min; Glucose 109 mg/dL (74-106); High Density Lipoprotein 29 mg/dL; Sodium Level 136 mmol/L (136-145); Thyroid Stim Hormone (TSH) 0.25 uIU/mL (0.358-3.74); Triglycerides 52 mg/dL; Very Low Density Lipoprotein 10 mg/dL (5-40)
[2019-05-14 07:30] VITALS: RESP 16; O2SAT 97
[2019-05-14 08:06] LABS: Hemoglobin A1c 6.1 % (4.2-6.3)
[2019-05-14 08:55] VITALS: BP 127/66; PULSE 98; RESP 18; TEMP 37.1; O2SAT 95
[2019-05-14] MEDS: Lisinopril 5 MG Tablet PO (08:57)
[2019-05-14] MEDS: Multivitamins,Ther W-Minerals Tablet 1 TABLET PO (08:57)
[2019-05-14] MEDS: metFORMIN HCl 500 MG Tablet PO ×2 (08:57→17:08)
[2019-05-14] MEDS: Loratadine 10 MG Tablet PO (08:57)
[2019-05-14 08:58] VITALS: PULSE 98
[2019-05-14] MEDS: Enoxaparin 40 MG/0.4 ML Syringe SC (08:58)
[2019-05-14] MEDS: Metoprolol(XL)Succ 25 MG Tablet PO (08:58)
[2019-05-14] MEDS: hydroCHLOROthiazide 25 MG Tablet PO (08:58)
[2019-05-14 09:35] LABS: T4 Free Direct 1.41 ng/dL (0.76-1.46)
--- NOTE | 2019-05-14 10:19 | NURSING ---
wound photo: left lower leg
[2019-05-14] MEDS: Fluticasone 0.05% 1 SPRAY NASAL.SRY 2 SPRAY NASAL (11:49)
[2019-05-14] MEDS: Insulin Lispro 100 UNIT/ML INSULN.PEN SC (11:52)
[2019-05-14 11:55] LABS: Bedside Glucose 166 mg/dL (70-110)
--- NOTE | 2019-05-14 13:20 | CASEMGMT ---
RN CM Assessment Presentation: LLL Cellulitis. Pt was in ER on Monday, was dc'd on Keflex, but did not have prescription filled. Intro role of CM and purpose of RN CM assessment. Demographics, PCP and Pharmacy verified. Pt is awake, alert and able to participate in assessment. Pt states if any dressing changes are needed at home, exwife can assist. PCP: Dr. Caruso Preferred Pharmacy: [facility] Insurance: [employer] just for me Prescription Benefit: yes LNOK: Lourdes Nicholson exwife and daughter Mery ibrahim. Living Arrangements: Lives independently with ex . Pt states he did not need assist with ADL prior to admission. Transportation: drives or family can drive. DME: cane and crutches HHC: none. States had in past, but does not remember name. Patient DC goals: Home DC PLAN: Home. No dc concerns identified at this time. Pt feels confident he can return home with family to assist. RN CM let pt know to contact if concerns or questions arise. Terese SMITHN RN ACM
--- NOTE | 2019-05-14 14:14 | PN_ITS ---
Patient Problems: Active and Suspected Problems (Last Updated 05/10/18 @ 09:44 by Zonia Yanez) Cellulitis of left lower leg (Acute) Subjective: The extent of the cellulitis has much improved. Pain, swelling has decreased. No fever or chills. Vitals/I&O's: Vital Signs Temp Pulse Resp BP Pulse Ox 98.7 F 98 18 127/66 H 95 05/14/19 08:55 05/14/19 08:58 05/14/19 08:55 05/14/19 08:55 05/14/19 08:55 Oxygen Delivery Method Room Air Weight: 198 lb 10.184 oz Body Mass Index (BMI) 29.3 Finger Stick Blood Glucose 134 Intake and Output for Last 24 Hours 05/12/19 05/13/19 05/14/19 23:59 23:59 23:59 Intake Total 1480 / 1480 1515.00 / 1515.00 Output Total 1900 / 1900 Balance 1480 / 1480 -385.00 / -385.00 General: Alert, Oriented x3, Cooperative HEENT: Atraumatic, PERRLA, EOMI, Normocephalic Neck: Supple, No JVD, Negative Carotid Bruits Lungs: Clear to auscultation, Normal air movement, No rhonchi, No wheeze, No rales Cardiovascular: Regular rate, Regular Rhythm, Normal S1, Normal S2, No murmurs Abdomen: Bowel Sounds Present, Soft, Non Tender, Non-Distended Extremities: No edema, Capillary Refill Less than 3 Seconds Skin: No breakdown, Ulcer/ Wound - Small superficial with pinkish granulation tissue on floor after spontaneous rupture of blister. No purulent discharge., Rash Present - Surrounding erythema, tenderness, beefy duration has improved and now restricted around ankle area Musculoskeletal: No Tenderness to Palpation of Joints or Extremities, Arthritic Changes, - Neurological: Cranial nerves II-XII grossly intact, Neuro grossly intact, - - Chronic right upper extremity weakness. Psych/Mental Status: Normal Affect, Appropriate Laboratory Results 05/13/19 14:20: WBC 14.0 H, RBC 3.76 L, Hgb 10.9 L, Hct 33.5 L, MCV 89.1, MCH 29.0, MCHC 32.5, RDW Std Deviation 42.7, RDW Coeff of Simon 13.1, Plt Count 272, MPV 8.8, Immature Gran % (Auto) 2.600 H, Neut % (Auto) 79.6 H, Lymph % (Auto) 8.8 L, [place] % (Auto) 7.9, Eos % (Auto) 0.7, Baso % (Auto) 0.4, Absolute Neuts (auto) 11.1 H, Absolute Lymphs (auto) 1.23, Nucleated RBC % 0 05/13/19 14:20: Sodium 131 L, Potassium 3.8, Chloride 97 L, Carbon Dioxide 28.0, Anion Gap 6, BUN 17, Creatinine 1.18, Estim Creat Clear Calc 64.08, Est GFR (MDRD) Af Amer 80, Est GFR (MDRD) Non-Af 66, BUN/Creatinine Ratio 14.4, Glucose 107 H, Calcium 9.2, Total Bilirubin 0.50, AST 24, ALT 34, Alkaline Phosphatase 122 H, Total Protein 7.9, Albumin 3.4, Globulin 4.5 H, Albumin/Globulin Ratio 0.8 L 05/13/19 14:20: Magnesium 1.9 05/13/19 18:30: S.aureus Protein A PCR NEGATIVE, MRSA (PCR) Negative 05/13/19 18:34: POC Glucose 85 05/13/19 18:50: MRSA (PCR) Negative 05/13/19 21:50: POC Glucose 118 H 05/14/19 05:20: WBC 12.4 H, RBC 3.46 L, Hgb 9.8 L, Hct 30.7 L, MCV 88.7, MCH 28.3, MCHC 31.9 L, RDW Std Deviation 43.0, RDW Coeff of Simon 13.2, Plt Count 248, MPV 8.8, Immature Gran % (Auto) 2.500 H, Neut % (Auto) 81.5 H, Lymph % (Auto) 8.1 L, [place] % (Auto) 7.0, Eos % (Auto) 0.5, Baso % (Auto) 0.4, Absolute Neuts (auto) 10.1 H, Absolute Lymphs (auto) 1.01, Nucleated RBC % 0 05/14/19 05:20: Sodium 136, Potassium 4.0, Chloride 104, Carbon Dioxide 26.0, Anion Gap 6, BUN 13, Creatinine 1.03, Estim Creat Clear Calc 73.41, Est GFR (MDRD) Af Amer 94, Est GFR (MDRD) Non-Af 77, BUN/Creatinine Ratio 12.6, Glucose 109 H, Calcium 8.6, Triglycerides 52, Cholesterol 68, LDL Cholesterol 29, VLDL Cholesterol 10, HDL Cholesterol 29 L, TSH 0.25 L 05/14/19 05:20: Hemoglobin A1c 6.1 05/14/19 05:20: Free T4 1.41 05/14/19 06:31: POC Glucose 102 05/14/19 11:49: POC Glucose 166 H Current Medications Acetaminophen (Tylenol) 650 mg PO Q6H PRN PRN PRN Reason: Pain Score 1-3/Temp > 100.7 F Last Admin: 05/14/19 03:15 Dose: 650 mg Documented by: Albuterol Sulfate (Ventolin Aerosols) 2.5 mg INHALATION Q2H PRN PRN PRN Reason: Shortness of Breath/Wheezing Dextrose (D50w Syringe) 0 gm IV X1 PRN; Protocol PRN Reason: Hypoglycemia Dipyridamole/Aspirin (Aggrenox 25 Mg-200 Mg) 1 capsule PO BID [facility] Last Admin: 05/14/19 08:57 Dose: 1 capsule Documented by: Enoxaparin Sodium (Lovenox) 40 mg SC DAILY@1000 [facility] Last Admin: 05/14/19 08:58 Dose: 40 mg Documented by: Fluticasone Propionate (Flonase Nasal [place]) 2 spray NASAL DAILY [facility] Last Admin: 05/14/19 11:49 Dose: 2 spray Documented by: Glucagon () 1 mg IM .X1 PRN PRN Reason: Hypoglycemia Guaifenesin (Robitussin) 20 ml PO Q4H PRN PRN PRN Reason: COUGH Hydrochlorothiazide (Hctz) 25 mg PO DAILY [facility] Last Admin: 05/14/19 08:58 Dose: 25 mg Documented by: Cefazolin Sodium () 1 gm in 50 mls @ 100 mls/hr IV Q8 [facility] Last Infusion: 05/14/19 06:58 Dose: Infused Documented by: Sodium Chloride () 250 mls @ 15 mls/hr IV .[id number] PRN PRN Reason: Saline Flush Insulin Human Lispro (Humalog Kwikpen (Bkc)) 0 unit SC ACHS [facility]; Protocol Last Admin: 05/14/19 11:52 Dose: 2 units Documented by: Lisinopril (Zestril) 5 mg PO DAILY [facility] Last Admin: 05/14/19 08:57 Dose: 5 mg Documented by: Loratadine (Claritin) 10 mg PO DAILY [facility] Last Admin: 05/14/19 08:57 Dose: 10 mg Documented by: Metformin HCl (Glucophage) 500 mg PO BIDCM [facility] Last Admin: 05/14/19 08:57 Dose: 500 mg Documented by: Metoprolol Succinate (Toprol Xl (Beta Keisha)) 25 mg PO DAILY [facility] Last Admin: 05/14/19 08:58 Dose: 25 mg Documented by: Morphine Sulfate () 1 mg IV Q3H PRN PRN PRN Reason: Pain Score 6-10/10 Multivitamins/Minerals (Multivitamin With Minerals) 1 tablet PO DAILY@0800 [facility] Last Admin: 05/14/19 08:57 Dose: 1 tablet Documented by: Naproxen (Naprosyn) 250 mg PO DAILY PRN PRN Reason: Pain Score 1-3/10 Oxycodone HCl (Oxyir) 5 mg PO Q4H PRN PRN PRN Reason: Pain Score 4-5/10 Oxymetazoline HCl (Afrin (Bkc)) 2 spray NS DAILY PRN PRN PRN Reason: ALLERGIES Promethazine HCl (Phenergan) 12.5 mg IV Q6H PRN PRN PRN Reason: Breakthrough nausea/vomiting Senna/Docusate Sodium (Senokot-S, Melony-Colace) 2 tablet PO BID PRN PRN PRN Reason: Constipation Sodium Chloride () 10 - 40 ml IV UD PRN PRN Reason: SALINE FLUSH Medical Necessity - Tobacco Use Smoking Status: Never smoker Assessment/Plan All Active Problems (Last Updated 05/10/18 @ 09:44 by Zonia Yanez) Cellulitis of left lower leg (Acute) Nonsustained ventricular tachycardia (Resolved) The patient is a 63 year old M with history of diabetes mellitus type 2, CVA x2 and PVCs came to ER with left leg pain, erythema, warm along with subjective fever and chills gradually worsening for about 1 week In ED, vitals did not show fever but heart rate 100/min, blood pressure 128/60. No hypoxia. General labs shows leukocytosis 14,000 with left shift, 80% neutrophils. Sodium 131, glucose 107, alkaline phosphatase 122 rest within normal limit. Patient was given 1 dose of vancomycin and Zosyn and further admitted on the floor. [] 1. Left lower leg cellulitis with blister, suggestive of staph infection (OR Strep lymphangitis as prior note of Dr. Ferris): Patient is being admitted on [facility] floor. Patient had 1 dose of vancomycin and Zosyn. Vitals are stable. No purulence on exam. Started on IV cefazolin 1 g every 8 hourly. MRSA nasal screen negative. Leukocytosis improving. 2. Diabetes mellitus type II: Glucose is controlled. Accu-Chek before meals and at bedtime and cover with Humalog sliding scale. A1c 6.1. Good glucose control. 3. 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 Patient is on Aggrenox, lisinopril and metoprolol at home. Fasting lipid profile shows HDL 29, LDL 2029, triglyceride 52 and total cholesterol 68. Started on atorvastatin 20 mg. This was discussed with the patient. 4. Hypertension, PVCs and paroxysmal A. fib: Patient is not on anticoagulant currently in normal sinus rhythm. Continue HCTZ. TSH 0.25 but free T4 is normal, 1.41. Most probably euthyroid sick syndrome. May need thyroid function test to be repeated after 1 month at normal baseline. 5. Diverticulitis type II: Glucose is controlled. Continue metformin. DVT prophylaxis: Lovenox 40 mg subcu daily Code Visit Inpatient E&M: 11793 [facility] L3
[2019-05-14 15:09] VITALS: BP 123/69; PULSE 96; RESP 18; TEMP 36.9; O2SAT 96
[2019-05-14 17:16] LABS: Bedside Glucose 114 mg/dL (70-110)
[2019-05-14 20:39] VITALS: BP 140/67; PULSE 99; RESP 16; TEMP 36.4; O2SAT 95
[2019-05-14] MEDS: 0.9% Saline Lock 10 ML Syringe IV (21:41)
[2019-05-14 21:45] LABS: Bedside Glucose 105 mg/dL (70-110)
[2019-05-15 04:13] VITALS: BP 128/66; PULSE 88; RESP 14; TEMP 36.4; O2SAT 96
[2019-05-15 06:08] LABS: Absolute Lymphocyte Count 1.37 X10^3/uL (0.83-4.51); Basophil# 0.08 X10^3/uL; Basophil% 0.5 % (0-1); Eosinophil# 0.14 X10^3/uL; Eosinophils% 0.9 % (0-5); Hematocrit 32.7 % (40-54); Hemoglobin 10.3 g/dL (13.0-16.5); Lymphocyte # 1.37 X10^3/ul (4.0); Lymphocyte % 9.1 % (19-41); Mean Corp Hgb Conc 31.5 g/dL (32-36); Mean Corpuscular Hgb 28.1 pg (27.0-32.0); Mean Corpuscular Volume 89.1 fL (80-94); Mean Platelet Vol. 8.4 fl (6.2-12.0); Monocyte# 0.85 X10^3/uL; Monocyte% 5.7 % (0-10); NRBC Flagged by Analyzer 0 % (0-5); Neutrophil # 12.04 X10^3/uL (2.7-7.7); Neutrophil % 80.4 % (47-70); Platelet Count 249 K/mm3 (150-450); RBC Distribution Width SD 42.6 fl (35.1-43.9); Red Blood Count 3.67 M/mm3 (4.6-6.2)
[2019-05-15] MEDS: 0.9% Saline Lock 10 ML Syringe IV (06:36)
[2019-05-15] MEDS: Cefazolin 1 GM/50 ML BAG IV (06:39)
[2019-05-15 06:45] LABS: Bedside Glucose 103 mg/dL (70-110)
[2019-05-15 08:08] VITALS: O2SAT 95
--- NOTE | 2019-05-15 09:38 | NURSING ---
Discussed patient with Dr Vazquez. Podiatry and ID consulted. will continue to monitor.
[2019-05-15] MEDS: metFORMIN HCl 500 MG Tablet PO (10:54)
[2019-05-15] MEDS: Multivitamins,Ther W-Minerals Tablet 1 TABLET PO (10:54)
[2019-05-15] MEDS: Loratadine 10 MG Tablet PO (10:55)
[2019-05-15] MEDS: Enoxaparin 40 MG/0.4 ML Syringe SC (10:55)
[2019-05-15 10:56] VITALS: PULSE 88
[2019-05-15] MEDS: Metoprolol(XL)Succ 25 MG Tablet PO (10:56)
[2019-05-15 10:59] LABS: Lactic Acid 1.2 mmol/L (0.4-2.0)
[2019-05-15] MEDS: hydroCHLOROthiazide 25 MG Tablet PO (10:59)
[2019-05-15] MEDS: Lisinopril 5 MG Tablet PO (10:59)
[2019-05-15] MEDS: Fluticasone 0.05% 1 SPRAY NASAL.SRY 2 SPRAY NASAL (10:59)
[2019-05-15 11:00] VITALS: BP 132/74; PULSE 98; RESP 16; TEMP 36.7; O2SAT 97
[2019-05-15] MEDS: 0.9% Normal Saline 1,000 ML 150 ML IV (11:00)
--- NOTE | 2019-05-15 13:15 | PCM.PN.HOSP ---
Patient Problems: Active and Suspected Problems (Last Updated 05/10/18 @ 09:44 by Zonia Yanez) Cellulitis of left lower leg (Acute) Subjective: CC: Worsening of left lower leg cellulitis with localized purplish color of his skin around the ulcer Vitals/I&O's: Vital Signs Temp Pulse Resp BP Pulse Ox 98.0 F 98 16 132/74 H 97 05/15/19 11:00 05/15/19 11:00 05/15/19 11:00 05/15/19 11:00 05/15/19 11:00 Oxygen Delivery Method Room Air Weight: 198 lb 10.184 oz Body Mass Index (BMI) 29.3 Finger Stick Blood Glucose 134 Intake and Output for Last 24 Hours 05/13/19 05/14/19 05/15/19 23:59 23:59 23:59 Intake Total 1480 / 1480 2895.00 / 3095.00 250 / 250 Output Total 1900 / 1900 800 / 800 Balance 1480 / 1480 995.00 / 1195.00 -550 / -550 General: Alert, Oriented x3, Cooperative HEENT: Atraumatic, PERRLA, EOMI, Normocephalic Oral: Moist Mucosa Neck: Supple, No JVD, Negative Carotid Bruits Lungs: Clear to auscultation, Normal air movement, No rhonchi, No wheeze, No rales Cardiovascular: Regular rate, Regular Rhythm, Normal S1, Normal S2, No murmurs Abdomen: Bowel Sounds Present, Soft, Non Tender, Non-Distended Extremities: No edema, Capillary Refill Less than 3 Seconds, - - Popliteal, PT and dorsalis on both lower extremities are equal, symmetrical and palpable Capillary refill on left toes are good Skin: Ulcer/ Wound - Localized. Mild tenderness around the ulcer. There is purplish to black discoloration of his skin around the ulcer. Localized redness has decreased to the lower one third of leg and her ankle., Rash Present - Erythema around the leg. Musculoskeletal: No Tenderness to Palpation of Joints or Extremities, Arthritic Changes Lymphatic: No Cervical, Supraclavicular, or Inguinal Adenopathy Neurological: Cranial nerves II-XII grossly intact, Deep Tendon Reflexes 2+/4 and Symmetrical, Neuro grossly intact Psych/Mental Status: Normal Affect, Appropriate Microbiology Past 72 Hours 05/13/19 14:34 Blood Culture (Wb) - Anticubital Left Blood Culture - Preliminary No growth in 48 hours. 05/13/19 14:20 Blood Culture (Wb) - Anticubital Left Blood Culture - Preliminary No growth in 48 hours. Laboratory Results 05/14/19 17:06: POC Glucose 114 H 05/14/19 21:43: POC Glucose 105 05/15/19 05:52: WBC 15.0 H, RBC 3.67 L, Hgb 10.3 L, Hct 32.7 L, MCV 89.1, MCH 28.1, MCHC 31.5 L, RDW Std Deviation 42.6, RDW Coeff of Simon 13.0, Plt Count 249, MPV 8.4, Immature Gran % (Auto) 3.400 H, Neut % (Auto) 80.4 H, Lymph % (Auto) 9.1 L, [place] % (Auto) 5.7, Eos % (Auto) 0.9, Baso % (Auto) 0.5, Absolute Neuts (auto) 12.0 H, Absolute Lymphs (auto) 1.37, Nucleated RBC % 0 05/15/19 06:40: POC Glucose 103 05/15/19 10:18: C-React Prot Ext Range 140.00 H 05/15/19 10:18: Lactic Acid 1.2 Current Medications Acetaminophen (Tylenol) 650 mg PO Q6H PRN PRN PRN Reason: Pain Score 1-3/Temp > 100.7 F Last Admin: 05/14/19 20:37 Dose: 650 mg Documented by: Albuterol Sulfate (Ventolin Aerosols) 2.5 mg INHALATION Q2H PRN PRN PRN Reason: Shortness of Breath/Wheezing Dextrose (D50w Syringe) 0 gm IV X1 PRN; Protocol PRN Reason: Hypoglycemia Dipyridamole/Aspirin (Aggrenox 25 Mg-200 Mg) 1 capsule PO BID [facility] Last Admin: 05/15/19 10:54 Dose: 1 capsule Documented by: Enoxaparin Sodium (Lovenox) 40 mg SC DAILY@1000 [facility] Last Admin: 05/15/19 10:55 Dose: 40 mg Documented by: Fluticasone Propionate (Flonase Nasal [place]) 2 spray NASAL DAILY [facility] Last Admin: 05/15/19 10:59 Dose: 2 spray Documented by: Glucagon () 1 mg IM .X1 PRN PRN Reason: Hypoglycemia Guaifenesin (Robitussin) 20 ml PO Q4H PRN PRN PRN Reason: COUGH Hydrochlorothiazide (Hctz) 25 mg PO DAILY [facility] Last Admin: 05/15/19 10:59 Dose: 25 mg Documented by: Sodium Chloride () 250 mls @ 15 mls/hr IV .[id number] PRN PRN Reason: Saline Flush Sodium Chloride () 1,000 mls @ 150 mls/hr IV .Q6H40M [facility] Stop: 05/15/19 16:19 Last Infusion: 05/15/19 11:00 Dose: 0 mls/hr Documented by: Piperacillin Sod/Tazobactam (Sod 3.375 gm/ Sodium Chloride) 50 mls @ 12.5 mls/hr IV Q8 [facility] Vancomycin IV Pharmacy to Dose (1 ea/ Sodium Chloride) 500 mls @ 250 mls/hr IV DAILY PRN; Protocol Insulin Human Lispro (Humalog Kwikpen (Bkc)) 0 unit SC ACHS [facility]; Protocol Last Admin: 05/15/19 11:10 Dose: Not Given Documented by: Lisinopril (Zestril) 5 mg PO DAILY [facility] Last Admin: 05/15/19 10:59 Dose: 5 mg Documented by: Loratadine (Claritin) 10 mg PO DAILY [facility] Last Admin: 05/15/19 10:55 Dose: 10 mg Documented by: Metformin HCl (Glucophage) 500 mg PO BIDCM [facility] Last Admin: 05/15/19 10:54 Dose: 500 mg Documented by: Metoprolol Succinate (Toprol Xl (Beta Keisha)) 25 mg PO DAILY [facility] Last Admin: 05/15/19 10:56 Dose: 25 mg Documented by: Morphine Sulfate () 1 mg IV Q3H PRN PRN PRN Reason: Pain Score 6-10/10 Multivitamins/Minerals (Multivitamin With Minerals) 1 tablet PO DAILY@0800 [facility] Last Admin: 05/15/19 10:54 Dose: 1 tablet Documented by: Naproxen (Naprosyn) 250 mg PO DAILY PRN PRN Reason: Pain Score 1-3/10 Oxycodone HCl (Oxyir) 5 mg PO Q4H PRN PRN PRN Reason: Pain Score 4-5/10 Oxymetazoline HCl (Afrin (Bkc)) 2 spray NS DAILY PRN PRN PRN Reason: ALLERGIES Promethazine HCl (Phenergan) 12.5 mg IV Q6H PRN PRN PRN Reason: Breakthrough nausea/vomiting Senna/Docusate Sodium (Senokot-S, Melony-Colace) 2 tablet PO BID PRN PRN PRN Reason: Constipation Sodium Chloride () 10 - 40 ml IV UD PRN PRN Reason: SALINE FLUSH Last Admin: 05/15/19 06:36 Dose: 10 ml Documented by: STROKE Vital Signs/Narrative: Vital Signs Temp Pulse Resp BP Pulse Ox 05/15/19 11:00 98.0 F 98 16 132/74 H 97 05/15/19 10:56 88 Medical Necessity - Tobacco Use Smoking Status: Never smoker Assessment/Plan All Active Problems (Last Updated 05/10/18 @ 09:44 by Zonia Yanez) Cellulitis of left lower leg (Acute) Nonsustained ventricular tachycardia (Resolved) The patient is a 63 year old M with history of diabetes mellitus type 2, CVA x2 and PVCs came to ER with left leg pain, erythema, warm along with subjective fever and chills gradually worsening for about 1 week In ED, vitals did not show fever but heart rate 100/min, blood pressure 128/60. No hypoxia. General labs shows leukocytosis 14,000 with left shift, 80% neutrophils. Sodium 131, glucose 107, alkaline phosphatase 122 rest within normal limit. Patient was given 1 dose of vancomycin and Zosyn and further admitted on the floor. [] 1. Left lower leg cellulitis with blister, suggestive of staph infection (OR Strep lymphangitis as prior note of Dr. Ferris): Patient is being admitted on [facility] floor. Patient had 1 dose of vancomycin and Zosyn. Vitals are stable. No purulence on exam. Started on IV cefazolin 1 g every 8 hourly. MRSA nasal screen negative. 05/15 2019: Worsening of leukocytosis. There is localized purplish to black discoloration of his skin around the ulcer. Bilateral lower legs pulses are good, equal and symmetrical. Antibiotic changed to IV vancomycin and Zosyn. ID and bat carrier consult. MRI of left lower extremity ordered. Clinical information conveyed to the patient. CRP 140. Lactic acid 1.2. Pharmacy to follow Vanco dosing and trough. 2. Diabetes mellitus type II: Glucose is controlled. Accu-Chek before meals and at bedtime and cover with Humalog sliding scale. A1c 6.1. Good glucose control. 05/15: Good glucose control. 3. 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 Patient is on Aggrenox, lisinopril and metoprolol at home. Fasting lipid profile shows HDL 29, LDL 9, triglyceride 52 and total cholesterol 68. Started on atorvastatin 20 mg. This was discussed with the patient. 4. Hypertension, PVCs and paroxysmal A. fib: Patient is not on anticoagulant currently in normal sinus rhythm. Continue HCTZ. TSH 0.25 but free T4 is normal, 1.41. Most probably euthyroid sick syndrome. May need thyroid function test to be repeated after 1 month at normal baseline. 5. Diverticulitis type II: Glucose is controlled. Discontinue metformin. DVT prophylaxis: Lovenox 40 mg subcu daily Code Visit Inpatient E&M: [id number] [facility] L3
--- NOTE | 2019-05-15 13:20 | PCM.RX.CS ---
Consult Pharmacy has been consulted to manage selected antiobiotic: Vancomycin Type of Consult: New start Suspected Infection: Skin/Soft tissue Prior Doses of Antibiotics Received/Current Regimen: Did receive x1 dose of vancomycin 1250mg IV in E.R. on 05/13/19 at 15:30 Labs: Sodium 136 mmol/L (136-145) 05/14/19 05:20 Potassium 4.0 mmol/L (3.5-5.1) 05/14/19 05:20 Chloride 104 mmol/L (98-107) 05/14/19 05:20 Carbon Dioxide 26.0 mmol/L (21.0-32.0) 05/14/19 05:20 Anion Gap 6 (5-15) 05/14/19 05:20 BUN 13 mg/dL (7-18) 05/14/19 05:20 Creatinine 1.03 mg/dL (0.70-1.30) 05/14/19 05:20 Est GFR (MDRD) Af Amer 94 mL/min (>60) 05/14/19 05:20 Est GFR (MDRD) Non-Af 77 mL/min (>60) 05/14/19 05:20 BUN/Creatinine Ratio 12.6 RATIO (10-20) 05/14/19 05:20 Glucose 109 mg/dL (74-106) H 05/14/19 05:20 Microbiology: Microbiology 05/13/19 14:34 Blood Culture (Wb) - Anticubital Left Blood Culture - Preliminary No growth in 48 hours. 05/13/19 14:20 Blood Culture (Wb) - Anticubital Left Blood Culture - Preliminary No growth in 48 hours. Weight used for dosin.1 kg Estimated Creatinine Clearance: 73.4ml/min Goal Trough: 10-15 mcg/mL Pharmacy Plan for Drug Dosing: Give initial dose of 1500mg IV x1 as ordered, then continue with 1000mg IV q12h. Will draw a trough level before the 3rd dose of 1000mg. Pharmacy Service will continue to monitor and adjust dosing as required. Follow-Up Labs: Trough Vancomycin Labs to be done on [date and time ordered]: 05/16/19 22:30
--- NOTE | 2019-05-15 14:23 | NURSING ---
Wound cultures obtained and sent. there is a MRSA swab noted that was taken on admission, but this was a nasal swab. Discussed patient with Dr Lakhani. pt scheduled for an MRI of the LLE as well. will continue to monitor.
--- NOTE | 2019-05-15 14:24 | CON.PCM_ITS ---
Problem List (1) Cellulitis of left lower leg Status: Acute Reason for Consult: cellulitis Consulted by: Dr. Vazquez History of Present Illness: The patient is a 63 year old M with DM, htn, presented with LLE pain, redness, swelling. Sx started 05/09 with fever and chills. No trauma to his leg. No unusual exposures or travel. No pets at home. No prior h/o MRSA. Next day, L ankle was sore, day after that noticed redness over medial ankle. No further fever, but leg worsened, came to ED, given unasyn, did not take any abx at home. Leg was better but worsened after the next 1-2 days. Saw PCP, sent to ED. Admitted on vanc/zosyn. Was walking on leg, but it did increase pain to do so. Leg feeling better today. Full ROS performed and neg except as noted above. - Medical History Past Medical History (Chronic Problems): Chronic Problems (Last Updated 05/10/18 @ 09:44 by Zonia Yanez) Paroxysmal atrial fibrillation (Chronic) Premature ventricular contractions (Chronic) CVA (cerebral vascular accident) (Chronic) Essential (primary) hypertension (Chronic) Allergies/Adverse Reactions: Allergies No Known Allergies Allergy (Verified 05/13/19 13:15) Home Medications: Ambulatory Orders Medication Instructions Recorded Fluticasone 0.05% [Flonase Nasal 2 spray NASAL DAILY #1 bottle 12/01/15 [place]] Loratadine [Claritin] 10 mg PO DAILY tab 12/01/15 aspirin 25 mg-dipyridamole 200 mg 1 cap PO BID 04/25/18 capsule,ext.release 12 hr multiphase lisinopril 5 mg tablet 5 mg PO DAILY #90 tab 04/25/18 metoprolol succinate ER 25 mg 25 mg PO DAILY #90 tab 04/25/18 tablet,extended release 24 hr hydrochlorothiazide 25 mg tablet 25 mg PO DAILY 10/24/18 Metformin HCl 500 mg PO BID 05/13/19 Multivitamin with Minerals 1 ea PO DAILY 05/13/19 [Multiple Vitamin] Naproxen Sodium [Aleve] 220 mg PO DAILY PRN 05/13/19 Oxymetazoline HCl [Afrin] 2 puff NS DAILY PRN PRN 05/13/19 - Social History Tobacco Use: non-smoker Vital Signs Temp Pulse Resp BP Pulse Ox 98.0 F 98 16 132/74 H 97 05/15/19 11:00 05/15/19 11:00 05/15/19 11:00 05/15/19 11:00 05/15/19 11:00 Oxygen Delivery Method Room Air Weight: 90.1 kg Body Mass Index (BMI) 29.3 Finger Stick Blood Glucose 134 Microbiology Past 72 Hours 05/13/19 14:34 Blood Culture - Preliminary Blood Culture (Wb) - Anticubital Left No growth in 48 hours. 05/13/19 14:20 Blood Culture - Preliminary Blood Culture (Wb) - Anticubital Left No growth in 48 hours. Laboratory Tests Past 24 Hrs 05/15/19 05/15/19 05/15/19 05:52 10:18 10:18 WBC 15.0 H RBC 3.67 L Hgb 10.3 L Hct 32.7 L MCV 89.1 MCH 28.1 MCHC 31.5 L RDW Std Deviation 42.6 RDW Coeff of Simon 13.0 Plt Count 249 MPV 8.4 Immature Gran % (Auto) 3.400 H Neut % (Auto) 80.4 H Lymph % (Auto) 9.1 L [place] % (Auto) 5.7 Eos % (Auto) 0.9 Baso % (Auto) 0.5 Absolute Neuts (auto) 12.0 H Absolute Lymphs (auto) 1.37 Nucleated RBC % 0 Lactic Acid 1.2 C-React Prot Ext Range 140.00 H - Other Studies Radiology: [] reviewed Other Studies: [] Route of nutrition/ use of supplements: [] Nutritional Intake: [] IV Site: [] [place] Catheter: [] - Physical Exam General: Alert, Oriented x3, Cooperative, No apparent distress HEENT: Atraumatic, PERRLA, EOMI Neck: Supple, No Nodes Lungs: Clear to auscultation, Normal air movement Cardiovascular: Tachycardic Abdomen: Soft, Non Tender, Non-Distended Extremities: Edema - mild Skin: Rash Present - Over L lower leg, receding, reviewed photos Neurological: Cranial nerves II-XII grossly intact - Assessment/Plan Antibiotics: [] Assessment/Plan: [] Active and Suspected Problems (Last Updated 05/10/18 @ 09:44 by Zonia Yanez) Cellulitis of left lower leg (Acute) sepsis due to LLE cellulitis - no purulence. MRSA pcr neg. Feeling better, redness improved. Narrow vanc/zosyn to cefazolin. I don't see need for MRI at this point, will cancel for now. Podiatry to see. Will follow, thank you.
[2019-05-15] MEDS: Cefazolin 2 GM in 0.9% Normal Saline 100 ML IV ×2 (15:41→21:47)
[2019-05-15 15:51] LABS: Bedside Glucose 139 mg/dL (70-110)
[2019-05-15 16:06] LABS: Bedside Glucose 96 mg/dL (70-110)
[2019-05-15 17:00] VITALS: BP 147/73; PULSE 95; RESP 16; TEMP 36.6; O2SAT 97
--- NOTE | 2019-05-15 18:00 | PCM.CONS.GEN ---
Problem List (1) Ulcer of left lower extremity with fat layer exposed Status: Acute (2) Lower extremity edema Status: Acute (3) Pain in left lower leg Status: Acute (4) Cellulitis of left lower leg Status: Acute (5) Controlled diabetes mellitus Status: Acute Reason for Consult Date of Consultation: 05/15/19 Reason for Consultation: Left lower leg ulcer with cellulitis History of Present Illness: The patient is a 63 year old M with history of diabetes mellitus type 2, CVA x2 and PVCs was admitted on 05/13 through the ER after returning with leg pain, erythema, and an opened blister to the left lower leg. He relates everything started with some redness to the area about a week ago. He originally came to the emergency room on 05/10 and was given a dose of IV antibiotics and just discharged home with a prescription for Keflex, but patient says he was told not to fill this prescription and never took the oral antibiotics while at home. He says over the weekend and on Monday evening he noticed the redness slightly worsening as well as what appeared to be a fluid-filled blister to the left lower leg. He again presented back to the emergency room on 05/13 where he was subsequently admitted to the hospital. He was consulted to podiatry today. Patient is currently resting bedside in a chair with his present in the room. Patient states that overall he is been feeling much better each day that he has been admitted to the hospital. He relates his pain has improved each day since he has been admitted as well, however he does admit to some tenderness directly overlying the area of the open blister on the left lower leg. He currently denies any feelings of nausea, vomiting, fever, chills, shortness of breath. [] Past Medical History Past Medical History (Chronic Problems): Chronic Problems (Last Updated 05/10/18 @ 09:44 by Zonia Yanez) Paroxysmal atrial fibrillation (Chronic) Premature ventricular contractions (Chronic) CVA (cerebral vascular accident) (Chronic) Essential (primary) hypertension (Chronic) Medical History: Medical History (Last Updated 05/10/18 @ 09:44 by Zonia Yanez) Nonsustained ventricular tachycardia (Resolved) I47.2 Paroxysmal atrial fibrillation (Chronic) I48.0 Premature ventricular contractions (Chronic) I49.3 CVA (cerebral vascular accident) (Chronic) I63.9 Essential (primary) hypertension (Chronic) I10 Obesity E66.9 Obstructive sleep apnea G47.33 Type 2 diabetes mellitus E11.9 Allergies No Known Allergies Allergy (Verified 05/13/19 13:15) Home Medications: Ambulatory Orders Medication Instructions Recorded Fluticasone 0.05% [Flonase Nasal 2 spray NASAL DAILY #1 bottle 12/01/15 [place]] Loratadine [Claritin] 10 mg PO DAILY tab 12/01/15 aspirin 25 mg-dipyridamole 200 mg 1 cap PO BID 04/25/18 capsule,ext.release 12 hr multiphase lisinopril 5 mg tablet 5 mg PO DAILY #90 tab 04/25/18 metoprolol succinate ER 25 mg 25 mg PO DAILY #90 tab 04/25/18 tablet,extended release 24 hr hydrochlorothiazide 25 mg tablet 25 mg PO DAILY 10/24/18 Metformin HCl 500 mg PO BID 05/13/19 Multivitamin with Minerals 1 ea PO DAILY 05/13/19 [Multiple Vitamin] Naproxen Sodium [Aleve] 220 mg PO DAILY PRN 05/13/19 Oxymetazoline HCl [Afrin] 2 puff NS DAILY PRN PRN 05/13/19 Surgical History: Surgical History (Last Updated 05/21/18 @ 12:41 by Zonia Yanez) History of left heart catheterization Onset Date: 05/21/18 Z98.890 Surgical History: no surgical history Psychiatric History: No pertinent psych hx Smoking Status: Never smoker - *Family History Maternal Family History: Family History (Last Reviewed 04/25/18 @ 09:29 by Rudy Cortes MD) Mother Heart disease Father Heart disease History Items: No pertinent history Paternal Family History: Family History (Last Reviewed 04/25/18 @ 09:29 by Rudy Cortes MD) Mother Heart disease Father Heart disease History Items: Cancer - prostate, Heart Disease - age 84 Review of Systems Constitutional: Denies: Chills, Fever, Weight Change Cardiovascular: Denies: Chest Pain, Palpitations Respiratory: Denies: Cough, Shortness of breath at rest, Sputum production Gastrointestinal: Denies: Abdominal Pain, Nausea, Vomiting Genitourinary: Denies: Dysuria Musculoskeletal: Reports: Leg Pain - left lower leg pain Skin: Reports: - - ulcer/open blister left lower leg Psychiatric: Denies: Anxiety, Depression, Homicidal Ideations, Suicidal Ideations Patient Problems: Active and Suspected Problems (Last Updated 05/10/18 @ 09:44 by Zonia Yanez) Cellulitis of left lower leg (Acute) Ulcer of left lower extremity with fat layer exposed (Acute) Lower extremity edema (Acute) Pain in left lower leg (Acute) Controlled diabetes mellitus (Acute) - Physical Exam Vitals/I&O's: Vital Signs Temp Pulse Resp BP Pulse Ox 97.9 F 95 16 147/73 H 97 05/15/19 17:00 05/15/19 17:00 05/15/19 17:00 05/15/19 17:00 05/15/19 17:00 Oxygen Delivery Method Room Air Weight: 90.1 kg Body Mass Index (BMI) 29.3 Finger Stick Blood Glucose 134 Intake and Output for Last 24 Hours 05/13/19 05/14/19 05/15/19 23:59 23:59 23:59 Intake Total 1480 / 1480 2895.00 / 3095.00 1290 / 1290 Output Total 1900 / 1900 800 / 800 Balance 1480 / 1480 995.00 / 1195.00 490 / 490 General: Alert, Oriented x3, Cooperative, No apparent distress Extremities: No cyanosis, Capillary Refill Less than 3 Seconds, No Calf Tenderness - Negative Raul and Ziegler signs bilateral, Diminished Peripheral Pulses - Left DP and PT pulses were both dopplerable, Edema - Slight edema to the left lower extremity Skin: Ulcer/ Wound - Ulcer/open blister to the left lower leg posterior and just slightly superior to the medial malleolus. Base is noted to be granular with some areas of hyper granular tissue as well as some slight slough and what appears to be some dried blood surrounding the site. There is surrounding cellulitis to the area which the patient feels has been improving a today. Very slight warmth appreciated to the area. There is no purulence, no probing to bone, no tracking, no undermining, no malodor. Some very minor bogginess noted to area, but again, the ulcer site remains very superficial and no purulence able to be expressed from site at this time. Musculoskeletal: Tenderness - With manipulation of ulcer site Neurological: Sensory exam intact to light touch and pain Psych/Mental Status: Normal Affect, Appropriate Microbiology Past 72 Hours 05/13/19 14:34 Blood Culture (Wb) - Anticubital Left Blood Culture - Preliminary No growth in 48 hours. 05/13/19 14:20 Blood Culture (Wb) - Anticubital Left Blood Culture - Preliminary No growth in 48 hours. Laboratory Results 05/14/19 21:43: POC Glucose 105 05/15/19 05:52: WBC 15.0 H, RBC 3.67 L, Hgb 10.3 L, Hct 32.7 L, MCV 89.1, MCH 28.1, MCHC 31.5 L, RDW Std Deviation 42.6, RDW Coeff of Simon 13.0, Plt Count 249, MPV 8.4, Immature Gran % (Auto) 3.400 H, Neut % (Auto) 80.4 H, Lymph % (Auto) 9.1 L, Moore % (Auto) 5.7, Eos % (Auto) 0.9, Baso % (Auto) 0.5, Absolute Neuts (auto) 12.0 H, Absolute Lymphs (auto) 1.37, Nucleated RBC % 0 05/15/19 06:40: POC Glucose 103 05/15/19 10:18: C-React Prot Ext Range 140.00 H 05/15/19 10:18: Lactic Acid 1.2 05/15/19 11:10: POC Glucose 139 H 05/15/19 15:49: POC Glucose 96 Current Medications Acetaminophen (Tylenol) 650 mg PO Q6H PRN PRN PRN Reason: Pain Score 1-3/Temp > 100.7 F Last Admin: 05/14/19 20:37 Dose: 650 mg Documented by: Albuterol Sulfate (Ventolin Aerosols) 2.5 mg INHALATION Q2H PRN PRN PRN Reason: Shortness of Breath/Wheezing Dextrose (D50w Syringe) 0 gm IV X1 PRN; Protocol PRN Reason: Hypoglycemia Dipyridamole/Aspirin (Aggrenox 25 Mg-200 Mg) 1 capsule PO BID [facility] Last Admin: 05/15/19 10:54 Dose: 1 capsule Documented by: Enoxaparin Sodium (Lovenox) 40 mg SC DAILY@1000 [place] Last Admin: 05/15/19 10:55 Dose: 40 mg Documented by: Fluticasone Propionate (Flonase Nasal [place]) 2 spray NASAL DAILY [facility] Last Admin: 05/15/19 10:59 Dose: 2 spray Documented by: Glucagon () 1 mg IM .X1 PRN PRN Reason: Hypoglycemia Guaifenesin (Robitussin) 20 ml PO Q4H PRN PRN PRN Reason: COUGH Hydrochlorothiazide (Hctz) 25 mg PO DAILY [facility] Last Admin: 05/15/19 10:59 Dose: 25 mg Documented by: Sodium Chloride () 250 mls @ 15 mls/hr IV .[id number] PRN PRN Reason: Saline Flush Cefazolin Sodium 2 gm/ Sodium (Chloride) 110 mls @ 150 mls/hr IV Q8 [facility] Last Infusion: 05/15/19 16:25 Dose: Infused Documented by: Insulin Human Lispro (Humalog [place] (Bkc)) 0 unit SC ACHS [facility]; Protocol Last Admin: 05/15/19 15:49 Dose: Not Given Documented by: Lisinopril (Zestril) 5 mg PO DAILY [facility] Last Admin: 05/15/19 10:59 Dose: 5 mg Documented by: Loratadine (Claritin) 10 mg PO DAILY [facility] Last Admin: 05/15/19 10:55 Dose: 10 mg Documented by: Metoprolol Succinate (Toprol Xl (Beta Keisha)) 25 mg PO DAILY [facility] Last Admin: 05/15/19 10:56 Dose: 25 mg Documented by: Morphine Sulfate () 1 mg IV Q3H PRN PRN PRN Reason: Pain Score 6-10/10 Multivitamins/Minerals (Multivitamin With Minerals) 1 tablet PO DAILY@0800 [facility] Last Admin: 05/15/19 10:54 Dose: 1 tablet Documented by: Naproxen (Naprosyn) 250 mg PO DAILY PRN PRN Reason: Pain Score 1-3/10 Oxycodone HCl (Oxyir) 5 mg PO Q4H PRN PRN PRN Reason: Pain Score 4-5/10 Oxymetazoline HCl (Afrin (Bkc)) 2 spray NS DAILY PRN PRN PRN Reason: ALLERGIES Promethazine HCl (Phenergan) 12.5 mg IV Q6H PRN PRN PRN Reason: Breakthrough nausea/vomiting Senna/Docusate Sodium (Senokot-S, Melony-Colace) 2 tablet PO BID PRN PRN PRN Reason: Constipation Sodium Chloride () 10 - 40 ml IV UD PRN PRN Reason: SALINE FLUSH Last Admin: 05/15/19 06:36 Dose: 10 ml Documented by: Assessment/Plan All Active Problems (Last Updated 05/10/18 @ 09:44 by Zonia Yanez) Cellulitis of left lower leg (Acute) Ulcer of left lower extremity with fat layer exposed (Acute) Lower extremity edema (Acute) Pain in left lower leg (Acute) Controlled diabetes mellitus (Acute) Nonsustained ventricular tachycardia (Resolved) Ulcer left lower leg Left lower leg cellulitis Left lower leg edema DM Ulcer site pain This patient was carefully examined and evaluated resting in the chair by the bed this evening with his present for examination. Patient was consulted to podiatry today. Patient relates that he currently feels well and has been feeling better each day and states that the tenderness to the area has continued to improve each day since his admission. Patient is currently afebrile with vital signs stable. Patient's WBC today is 15. Left shift noted. Lactic acid 1.2. CRP 140. Blood cultures showed no growth after 48 hours. Ulcer cultures taken today and sent for aerobic, anaerobic, and MRSA PCR evaluation. Patient currently on IV antibiotics and being followed by infectious disease. MRI was ordered for this patient earlier today, however infectious disease did not feel this test was appropriate at the current time and canceled the order. Will reassess appropriateness of the test tomorrow. Since patient's pulses were not easily palpable the Doppler was used and was able to get an audible sound to both the DP and PT pulses. Will order LEAS studies but I do not feel they will be able to assess the patient's PT pulse due to the area of his ulcer. Venous doppler also ordered. The ulcer site and lower leg were carefully examined with the dressing down. Using a slightly moistened 4 x 4 any debris, loose skin, slough was carefully removed from the site. This revealed a mostly granular/hypergranular base. The site was carefully cleansed and then dressed with Aquacel Ag to the base, followed by 4 x 4's, ABDs, Kerlix, and lightly wrapped Alex bandage. Continued medical management and DVT prophylaxis appreciated per primary team. Podiatry will continue to follow this patient while in house.
--- NOTE | 2019-05-15 18:50 | ART_ITS ---
Reason For Study: ulcer Procedure A bilateral lower extremity continuous wave Doppler with analog waveform analysis,segmental pressures,and ankle brachial indexes without exercise. Left Segmental Pressures Left posterior tibial artery = 224mmHg. Left dorsalis pedis artery = 203mmHg. Left digit = 54 mmHg. The left dorsalis pedis waveforms are biphasic. The left posterior tibial artery waveforms are biphasic. No left breachial pressure taken due to IV site. Right Segmental Pressures Right brachial= 123mmHg. Right digit = 53 mmHg. MAMMAL [employer]OL AGENT and DPA are both noncompressible. The right dorsalis pedis waveforms are triphasic. The right posterior tibial artery waveforms are triphasic. Indices The right digital-brachial index is .43. MAMMAL CONTROL AGENT and DPA are both noncompressible. The left ankle brachial index by the dorsalis pedis is 1.65. The left ankle brachial index by the posterior tibial artery is 1.82. The left digital-brachial index is .44. Interpretation Summary Triphasic Doppler waveforms are noted at ankle level on the right. Biphasic Doppler waveforms are noted at ankle level on the left. Pulse-volume recordings appear generally satisfactory bilaterally. The resting right ankle-brachial index could not be determined due to the noncompresssibility of the vasculature. The resting left ankle-brachial index is supra-normal. Digital-brachial indices are moderately diminished bilaterally. There is evidence of arterial calcification at ankle level bilaterally. Secondary indicators suggest relatively normal arterial flow at ankle level bilaterally. However, there is evidence of moderate impairment of arterial flow at digital level bilaterally. Ordering Physician: Will Lakhani Referring Physician: Landen Vazquez Performed By: SEDA LAZARO T
--- NOTE | 2019-05-15 18:51 | VDLE_ITS ---
Reason For Study: swelling RIGHT LEFT CFV is compressible, spontaneous, phasic, GSV is normal. competent and demonstrates normal CFV is compressible, spontaneous, phasic, augmentation. competent, and demonstrates normal Procedure augmentation. Exam performed portable in patient room. FV is compressible, spontaneous, phasic, The exam was diagnostic. competent and demonstrates normal A preliminary report was called and/or faxed augmentation. to Татья[facility] AMARAL. POP V is compressible, spontaneous, phasic, competent and demonstrates normal augmentation. T/P Trunk is compressible. PTV is compressible. LT PerV is compressible. Interpretation Summary Deep veins of the left lower extremity are patent and compressible segmentally. There is no evidence of left lower extremity deep vein thrombosis. Valvular competence appears intact within the proximal deep venous system on the left . The left great saphenous vein appears patent and compressible segmentally. Ordering Physician: Will Lakhani Referring Physician: Landen Vazquez Performed By: Alberto Mckenzie RVT
--- NOTE | 2019-05-15 19:10 | RAD_ITS ---
HISTORY: ulcer to left lower leg, medial COMPARISON: None FINDINGS: # of images incl. paperwork: 3 XR Ankle Min 3 Views : Calcific plaque is severe within the posterior tibial artery from the distal leg down to the plantar surface of the foot. There is likely some plaque within the dorsalis pedis as well. No fracture or osseous abnormality. The ankle mortise is intact. Soft tissue swelling is is present about the ankle and distal leg. RAD/Ankle min 3 Views IMPRESSION: Soft tissue swelling without acute fracture or dislocation to the left ankle at 2310 Reported and signed by: Leonardo Jett MD Electronically Signed: Leonardo Jett MD at 23:09 EST Tel , Service support ,
[2019-05-15 21:39] VITALS: BP 151/82; PULSE 89; RESP 16; TEMP 36.8; O2SAT 99
[2019-05-15 22:20] LABS: Bedside Glucose 101 mg/dL (70-110)
[2019-05-15 23:57] LABS: M R Staph aureus DNA By PCR Negative (Negative); Probe Check PASS; Specimen Processing Control PASS; Staph aureus DNA By PCR NEGATIVE (Negative)
[2019-05-16] VITALS (7 sets, daily range): BP systolic 117–152; BP diastolic 62–82; PULSE 80–102; RESP 14–16; TEMP 36.7–36.9; O2SAT 95–98
[2019-05-16] MEDS: 0.9% Saline Lock 10 ML Syringe IV ×4 (05:54→16:34)
[2019-05-16] MEDS: Cefazolin 2 GM in 0.9% Normal Saline 100 ML IV ×3 (05:54→21:36)
[2019-05-16 06:56] LABS: Bedside Glucose 101 mg/dL (70-110)
--- NOTE | 2019-05-16 07:47 | PCM.PROGNOTE ---
Patient Problems: Active and Suspected Problems (Last Updated 05/10/18 @ 09:44 by Zonia Yanez) Cellulitis of left lower leg (Acute) Ulcer of left lower extremity with fat layer exposed (Acute) Lower extremity edema (Acute) Pain in left lower leg (Acute) Controlled diabetes mellitus (Acute) Subjective: This 63-year-old male was seen bedside for left lower extremity cellulitis. He rates his pain as a 2 out of 10. His redness has decreased and there is now a formed boggy area. He denies fever, chill, nausea, vomiting, loss of appetite. He is elevating his leg. - Physical Exam Vitals/I&O's: Vital Signs Temp Pulse Resp BP Pulse Ox 98.5 F 97 16 147/71 H 95 05/16/19 03:31 05/16/19 03:31 05/16/19 03:31 05/16/19 03:31 05/16/19 07:38 Oxygen Delivery Method Room Air Weight: 90.1 kg Body Mass Index (BMI) 29.3 Finger Stick Blood Glucose 134 Intake and Output for Last 24 Hours 05/14/19 05/15/19 05/16/19 23:59 23:59 23:59 Intake Total 2895.00 / 3095.00 1999 / 1999 1110 / 1110 Output Total 1900 / 1900 800 / 800 2500 / 2500 Balance 995.00 / 1195.00 1200 / 1200 -1390 / -1390 General: Alert, Oriented x3, Cooperative Extremities: No cyanosis, Capillary Refill Less than 3 Seconds, No Calf Tenderness - Negative Ziegler and Homans sign left lower extremity, Edema - Left lower extremity, Peripheral Pulses Normal Skin: - - Compared to prior pictures obtained and stored in [email or web address], there is significant reduction in intensity of erythema and location to premarked cellulitic area. There is deep ecchymosis to the medial posterior leg with a loculated boggy area to the posterior medial Achilles area approximately 3 cm proximal to the proximal portion of the calcaneus. Upon incision and drainage, there was 3 cc of purulent drainage expressed without odor. The tissue was slightly indurated and there is some skin discontinuity with granulation tissue to the posterior medial aspect of the left ankle. Musculoskeletal: No Tenderness to Palpation of Joints or Extremities, - - Apartment soft to palpate left lower extremity. Pain with wound manipulation. There is no pain on palpation or passive range of motion of the ankle subtalar or midfoot left Neurological: Sensory exam intact to light touch and pain Psych/Mental Status: Normal Affect, Appropriate Microbiology Past 72 Hours 05/13/19 14:34 Blood Culture (Wb) - Anticubital Left Blood Culture - Preliminary No growth in 48 hours. 05/13/19 14:20 Blood Culture (Wb) - Anticubital Left Blood Culture - Preliminary No growth in 48 hours. Laboratory Results 05/15/19 10:18: C-React Prot Ext Range 140.00 H 05/15/19 10:18: Lactic Acid 1.2 05/15/19 11:10: POC Glucose 139 H 05/15/19 14:00: S.aureus Protein A PCR NEGATIVE, MRSA (PCR) Negative 05/15/19 15:49: POC Glucose 96 05/15/19 21:46: POC Glucose 101 05/16/19 06:43: POC Glucose 101 Current Medications Acetaminophen (Tylenol) 650 mg PO Q6H PRN PRN PRN Reason: Pain Score 1-3/Temp > 100.7 F Last Admin: 05/14/19 20:37 Dose: 650 mg Documented by: Albuterol Sulfate (Ventolin Aerosols) 2.5 mg INHALATION Q2H PRN PRN PRN Reason: Shortness of Breath/Wheezing Dextrose (D50w Syringe) 0 gm IV X1 PRN; Protocol PRN Reason: Hypoglycemia Dipyridamole/Aspirin (Aggrenox 25 Mg-200 Mg) 1 capsule PO BID [facility] Last Admin: 05/15/19 21:47 Dose: 1 capsule Documented by: Enoxaparin Sodium (Lovenox) 40 mg SC DAILY@1000 [facility] Last Admin: 05/15/19 10:55 Dose: 40 mg Documented by: Fluticasone Propionate (Flonase Nasal [place]) 2 spray NASAL DAILY [facility] Last Admin: 05/15/19 10:59 Dose: 2 spray Documented by: Glucagon () 1 mg IM .X1 PRN PRN Reason: Hypoglycemia Guaifenesin (Robitussin) 20 ml PO Q4H PRN PRN PRN Reason: COUGH Hydrochlorothiazide (Hctz) 25 mg PO DAILY [facility] Last Admin: 05/15/19 10:59 Dose: 25 mg Documented by: Sodium Chloride () 250 mls @ 15 mls/hr IV .[id number] PRN PRN Reason: Saline Flush Cefazolin Sodium 2 gm/ Sodium (Chloride) 110 mls @ 150 mls/hr IV Q8 [facility] Last Infusion: 05/16/19 06:51 Dose: Infused Documented by: Insulin Human Lispro (Humalog Kwikpen (Bkc)) 0 unit SC ACHS [facility]; Protocol Last Admin: 05/16/19 06:44 Dose: Not Given Documented by: Lisinopril (Zestril) 5 mg PO DAILY [facility] Last Admin: 05/15/19 10:59 Dose: 5 mg Documented by: Loratadine (Claritin) 10 mg PO DAILY [facility] Last Admin: 05/15/19 10:55 Dose: 10 mg Documented by: Metoprolol Succinate (Toprol Xl (Beta Keisha)) 25 mg PO DAILY [facility] Last Admin: 05/15/19 10:56 Dose: 25 mg Documented by: Morphine Sulfate () 1 mg IV Q3H PRN PRN PRN Reason: Pain Score 6-10/10 Multivitamins/Minerals (Multivitamin With Minerals) 1 tablet PO DAILY@0800 [facility] Last Admin: 05/15/19 10:54 Dose: 1 tablet Documented by: Naproxen (Naprosyn) 250 mg PO DAILY PRN PRN Reason: Pain Score 1-3/10 Oxycodone HCl (Oxyir) 5 mg PO Q4H PRN PRN PRN Reason: Pain Score 4-5/10 Oxymetazoline HCl (Afrin (Bkc)) 2 spray NS DAILY PRN PRN PRN Reason: ALLERGIES Promethazine HCl (Phenergan) 12.5 mg IV Q6H PRN PRN PRN Reason: Breakthrough nausea/vomiting Senna/Docusate Sodium (Senokot-S, Melony-Colace) 2 tablet PO BID PRN PRN PRN Reason: Constipation Sodium Chloride () 10 - 40 ml IV UD PRN PRN Reason: SALINE FLUSH Last Admin: 05/16/19 05:54 Dose: 10 ml Documented by: Medical Necessity - Tobacco Use Smoking Status: Never smoker Assessment/Plan All Active Problems (Last Updated 05/10/18 @ 09:44 by Zonia Yanez) Cellulitis of left lower leg (Acute) Ulcer of left lower extremity with fat layer exposed (Acute) Lower extremity edema (Acute) Pain in left lower leg (Acute) Controlled diabetes mellitus (Acute) Nonsustained ventricular tachycardia (Resolved) Formed abscess left lower posterior medial leg Ulcer left lower leg Left lower leg cellulitis Left lower leg edema DM This patient was carefully examined and case was discussed. He did have leukocytosis with a white blood cell count of 15 yesterday. CBC, ESR, CRP is pending today. There appears to be some improvement and also progressive loculation of fluid that has formed. I recommend a bedside incision and drainage. The benefits, risk, complication, anticipated healing time and management and indication for this procedure was discussed. Informed consent was obtained. The area was prepped with Betadine and a 15 blade scalpel was used to make a one and a half centimeter linear incision to the posterior medial aspect of the left lower extremity. Approximately 3 cc of purulent drainage was expressed in which aerobic, anaerobic, and MRSA PCR was obtained. A saline with gauze was placed into this open area of evacuation and was covered with dry gauze Kerlix abdominal pad and Alex wrap. He will be monitored from a clinical and laboratory standpoint by the podiatry team tomorrow. Arterial and venous studies are also pending will help address any pathological etiology associated with this condition. To continue to elevate. Pain medication was offered for pain control he defers at this time. Continued medical management and DVT prophylaxis appreciated per primary team appreciated. Please not hesitate to call if you have any questions. Alexus Albrecht DPM, [facility] [phone]
--- NOTE | 2019-05-16 08:20 | NURSING ---
wound photo: left lower leg
[2019-05-16] MEDS: Multivitamins,Ther W-Minerals Tablet 1 TABLET PO (09:33)
[2019-05-16] MEDS: Loratadine 10 MG Tablet PO (09:33)
[2019-05-16] MEDS: Metoprolol(XL)Succ 25 MG Tablet PO (09:33)
[2019-05-16] MEDS: Lisinopril 5 MG Tablet PO (09:34)
[2019-05-16] MEDS: hydroCHLOROthiazide 25 MG Tablet PO (09:35)
[2019-05-16] MEDS: Fluticasone 0.05% 1 SPRAY NASAL.SRY 2 SPRAY NASAL (09:35)
[2019-05-16] MEDS: Enoxaparin 40 MG/0.4 ML Syringe SC (09:35)
[2019-05-16 09:55] LABS: Erythrocyte Sedimentation Rate 98 mm/hr (0-20)
[2019-05-16 09:56] LABS: Absolute Lymphocyte Count 1.03 X10^3/uL (0.83-4.51); Absolute Neutrophil Count 13.8 X10^3/uL (2.0-7.7); Basophil# 0.05 X10^3/uL; Basophil% 0.3 % (0-1); Eosinophil# 0.17 X10^3/uL; Hematocrit 34.1 % (40-54); Hemoglobin 10.9 g/dL (13.0-16.5); Lymphocyte # 1.03 X10^3/ul (4.0); Lymphocyte % 6.4 % (19-41); Mean Corpuscular Hgb 28.7 pg (27.0-32.0); Mean Corpuscular Volume 89.7 fL (80-94); Mean Platelet Vol. 8.5 fl (6.2-12.0); Monocyte# 0.75 X10^3/uL; Monocyte% 4.6 % (0-10); NRBC Flagged by Analyzer 0 % (0-5); Neutrophil # 13.81 X10^3/uL (2.7-7.7); Neutrophil % 85.2 % (47-70); Platelet Count 272 K/mm3 (150-450); RBC Distribution Width CV 13.1 % (11.6-14.6); White Blood Count 16.2 K/mm3 (4.4-11.0)
--- NOTE | 2019-05-16 10:09 | PCM.PN.ID ---
Patient Problems: Active and Suspected Problems (Last Updated 05/10/18 @ 09:44 by Zonia Yanez) Cellulitis of left lower leg (Acute) Ulcer of left lower extremity with fat layer exposed (Acute) Lower extremity edema (Acute) Pain in left lower leg (Acute) Controlled diabetes mellitus (Acute) Subjective: Feeling better. I&D at bedside this AM with pus drained. No fever, no n/v. - Physical Exam Vitals/I&O's: Vital Signs Temp Pulse Resp BP Pulse Ox 98.1 F 102 H 14 140/82 H 95 05/16/19 08:48 05/16/19 09:33 05/16/19 08:49 05/16/19 08:48 05/16/19 08:49 Oxygen Delivery Method Room Air Weight: 90.1 kg Body Mass Index (BMI) 29.3 Finger Stick Blood Glucose 134 Intake and Output for Last 24 Hours 05/14/19 05/15/19 05/16/19 23:59 23:59 23:59 Intake Total 2895.00 / 3095.00 1999 / 1999 1110 / 1110 Output Total 1900 / 1900 800 / 800 2500 / 2500 Balance 995.00 / 1195.00 1200 / 1200 -1390 / -1390 General: Alert, Cooperative, No apparent distress Lungs: Clear to auscultation, Normal air movement Cardiovascular: Regular rate, Regular Rhythm Abdomen: Soft, Non Tender, Non-Distended Skin: Ulcer/ Wound - LLE wrapped, reviewed photo Microbiology Past 72 Hours 05/13/19 14:34 Blood Culture (Wb) - Anticubital Left Blood Culture - Preliminary No growth in 48 hours. 05/13/19 14:20 Blood Culture (Wb) - Anticubital Left Blood Culture - Preliminary No growth in 48 hours. Laboratory Results 05/15/19 10:18: C-React Prot Ext Range 140.00 H 05/15/19 10:18: Lactic Acid 1.2 05/15/19 11:10: POC Glucose 139 H 05/15/19 14:00: S.aureus Protein A PCR NEGATIVE, MRSA (PCR) Negative 05/15/19 15:49: POC Glucose 96 05/15/19 21:46: POC Glucose 101 05/16/19 06:43: POC Glucose 101 05/16/19 07:50: S.aureus Protein A PCR Pending, MRSA (PCR) Pending 05/16/19 09:30: WBC 16.2 H, RBC 3.80 L, Hgb 10.9 L, Hct 34.1 L, MCV 89.7, MCH 28.7, MCHC 32.0, RDW Std Deviation 43.0, RDW Coeff of Simon 13.1, Plt Count 272, MPV 8.5, Immature Gran % (Auto) 2.500 H, Neut % (Auto) 85.2 H, Lymph % (Auto) 6.4 L, [place] % (Auto) 4.6, Eos % (Auto) 1.0, Baso % (Auto) 0.3, Absolute Neuts (auto) 13.8 H, Absolute Lymphs (auto) 1.03, Nucleated RBC % 0, ESR 98 H Current Medications Acetaminophen (Tylenol) 650 mg PO Q6H PRN PRN PRN Reason: Pain Score 1-3/Temp > 100.7 F Last Admin: 05/14/19 20:37 Dose: 650 mg Documented by: Albuterol Sulfate (Ventolin Aerosols) 2.5 mg INHALATION Q2H PRN PRN PRN Reason: Shortness of Breath/Wheezing Dextrose (D50w Syringe) 0 gm IV X1 PRN; Protocol PRN Reason: Hypoglycemia Dipyridamole/Aspirin (Aggrenox 25 Mg-200 Mg) 1 capsule PO BID [facility] Last Admin: 05/16/19 09:33 Dose: 1 capsule Documented by: Enoxaparin Sodium (Lovenox) 40 mg SC DAILY@1000 [facility] Last Admin: 05/16/19 09:35 Dose: 40 mg Documented by: Fluticasone Propionate (Flonase Nasal [place]) 2 spray NASAL DAILY [facility] Last Admin: 05/16/19 09:35 Dose: 2 spray Documented by: Glucagon () 1 mg IM .X1 PRN PRN Reason: Hypoglycemia Guaifenesin (Robitussin) 20 ml PO Q4H PRN PRN PRN Reason: COUGH Hydrochlorothiazide (Hctz) 25 mg PO DAILY [facility] Last Admin: 05/16/19 09:35 Dose: 25 mg Documented by: Sodium Chloride () 250 mls @ 15 mls/hr IV .[id number] PRN PRN Reason: Saline Flush Cefazolin Sodium 2 gm/ Sodium (Chloride) 110 mls @ 150 mls/hr IV Q8 [facility] Last Infusion: 05/16/19 06:51 Dose: Infused Documented by: Insulin Human Lispro (Humalog Kwikpen (Bkc)) 0 unit SC ACHS [facility]; Protocol Last Admin: 05/16/19 06:44 Dose: Not Given Documented by: Lisinopril (Zestril) 5 mg PO DAILY [facility] Last Admin: 05/16/19 09:34 Dose: 5 mg Documented by: Loratadine (Claritin) 10 mg PO DAILY [facility] Last Admin: 05/16/19 09:33 Dose: 10 mg Documented by: Metoprolol Succinate (Toprol Xl (Beta Keisha)) 25 mg PO DAILY [facility] Last Admin: 05/16/19 09:33 Dose: 25 mg Documented by: Morphine Sulfate () 1 mg IV Q3H PRN PRN PRN Reason: Pain Score 6-10/10 Multivitamins/Minerals (Multivitamin With Minerals) 1 tablet PO DAILY@0800 [facility] Last Admin: 05/16/19 09:33 Dose: 1 tablet Documented by: Naproxen (Naprosyn) 250 mg PO DAILY PRN PRN Reason: Pain Score 1-3/10 Oxycodone HCl (Oxyir) 5 mg PO Q4H PRN PRN PRN Reason: Pain Score 4-5/10 Oxymetazoline HCl (Afrin (Bkc)) 2 spray NS DAILY PRN PRN PRN Reason: ALLERGIES Promethazine HCl (Phenergan) 12.5 mg IV Q6H PRN PRN PRN Reason: Breakthrough nausea/vomiting Senna/Docusate Sodium (Senokot-S, Melony-Colace) 2 tablet PO BID PRN PRN PRN Reason: Constipation Sodium Chloride () 10 - 40 ml IV UD PRN PRN Reason: SALINE FLUSH Last Admin: 05/16/19 09:36 Dose: 10 ml Documented by: Medical Necessity - Tobacco Use Smoking Status: Never smoker Route of nutrition/ use of supplements: [] Nutritional Intake: [] IV Site: [] Hammond Catheter: [] - Assessment/Plan Antibiotics: [] Assessment/Plan: [] Active and Suspected Problems (Last Updated 05/10/18 @ 09:44 by Zonia Yanez) Cellulitis of left lower leg (Acute) sepsis due to LLE cellulitis - Much improved redness. Bedside I&D this AM with 3ml pus drained. MRSA and MSSA pcr neg. On cefazolin. Will follow
[2019-05-16 11:25] LABS: Bedside Glucose 111 mg/dL (70-110)
--- NOTE | 2019-05-16 11:26 | PCM.PN.HOSP ---
Patient Problems: Active and Suspected Problems (Last Updated 05/10/18 @ 09:44 by Zonia Yanez) Cellulitis of left lower leg (Acute) Ulcer of left lower extremity with fat layer exposed (Acute) Lower extremity edema (Acute) Pain in left lower leg (Acute) Controlled diabetes mellitus (Acute) Subjective: CC: Follow-up left lower leg localized abscess with cellulitis. Patient did not had fever or chills but mild tachycardia which resolved. Seen by ID and government affairs fellow. Photo by wound nurse reviewed Vitals/I&O's: Vital Signs Temp Pulse Resp BP Pulse Ox 98.1 F 102 H 14 140/82 H 95 05/16/19 08:48 05/16/19 09:33 05/16/19 08:49 05/16/19 08:48 05/16/19 08:49 Oxygen Delivery Method Room Air Weight: 198 lb 10.184 oz Body Mass Index (BMI) 29.3 Finger Stick Blood Glucose 134 Intake and Output for Last 24 Hours 05/14/19 05/15/19 05/16/19 23:59 23:59 23:59 Intake Total 2895.00 / 3095.00 1999 / 1999 1110 / 1110 Output Total 1900 / 1900 800 / 800 2500 / 2500 Balance 995.00 / 1195.00 1200 / 1200 -1390 / -1390 General: Alert, Oriented x3, Cooperative HEENT: Atraumatic, PERRLA, EOMI, Normocephalic Neck: Supple, No JVD, Negative Carotid Bruits Lungs: Clear to auscultation, Normal air movement, No rhonchi, No wheeze, No rales Cardiovascular: Regular rate, Regular Rhythm, Normal S1, Normal S2, No murmurs Abdomen: Bowel Sounds Present, Soft, Non Tender Extremities: No edema, Capillary Refill Less than 3 Seconds Skin: Ulcer/ Wound - There is purplish to black discoloration of his skin around the ulcer. Localized redness has decreased to the lower one third of leg and her ankle., Rash Present - Erythema around the leg. Left leg is Alex wrapped. Deep ecchymosis present in right lower leg around medial malleolus. 3 cc of purulent drainage by government affairs fellow. Musculoskeletal: No Tenderness to Palpation of Joints or Extremities Neurological: Cranial nerves II-XII grossly intact, - - Chronic right upper extremity weakness secondary to previous stroke. Psych/Mental Status: Normal Affect, Appropriate Microbiology Past 72 Hours 05/15/19 14:00 Wound Drainage - Aerobic & Anaerobic Swabs Wound Culture - Preliminary Gram positive organism 05/13/19 14:34 Blood Culture (Wb) - Anticubital Left Blood Culture - Preliminary No growth in 48 hours. 05/13/19 14:20 Blood Culture (Wb) - Anticubital Left Blood Culture - Preliminary No growth in 48 hours. Laboratory Results 05/15/19 11:10: POC Glucose 139 H 05/15/19 14:00: S.aureus Protein A PCR NEGATIVE, MRSA (PCR) Negative 05/15/19 15:49: POC Glucose 96 05/15/19 21:46: POC Glucose 101 05/16/19 06:43: POC Glucose 101 05/16/19 07:50: S.aureus Protein A PCR Pending, MRSA (PCR) Pending 05/16/19 09:30: WBC 16.2 H, RBC 3.80 L, Hgb 10.9 L, Hct 34.1 L, MCV 89.7, MCH 28.7, MCHC 32.0, RDW Std Deviation 43.0, RDW Coeff of Simon 13.1, Plt Count 272, MPV 8.5, Immature Gran % (Auto) 2.500 H, Neut % (Auto) 85.2 H, Lymph % (Auto) 6.4 L, [place] % (Auto) 4.6, Eos % (Auto) 1.0, Baso % (Auto) 0.3, Absolute Neuts (auto) 13.8 H, Absolute Lymphs (auto) 1.03, Nucleated RBC % 0, ESR 98 H 05/16/19 11:22: POC Glucose 111 H Current Medications Acetaminophen (Tylenol) 650 mg PO Q6H PRN PRN PRN Reason: Pain Score 1-3/Temp > 100.7 F Last Admin: 05/14/19 20:37 Dose: 650 mg Documented by: Albuterol Sulfate (Ventolin Aerosols) 2.5 mg INHALATION Q2H PRN PRN PRN Reason: Shortness of Breath/Wheezing Dextrose (D50w Syringe) 0 gm IV X1 PRN; Protocol PRN Reason: Hypoglycemia Dipyridamole/Aspirin (Aggrenox 25 Mg-200 Mg) 1 capsule PO BID [facility] Last Admin: 05/16/19 09:33 Dose: 1 capsule Documented by: Enoxaparin Sodium (Lovenox) 40 mg SC DAILY@1000 [facility] Last Admin: 05/16/19 09:35 Dose: 40 mg Documented by: Fluticasone Propionate (Flonase Nasal [place]) 2 spray NASAL DAILY [facility] Last Admin: 05/16/19 09:35 Dose: 2 spray Documented by: Glucagon () 1 mg IM .X1 PRN PRN Reason: Hypoglycemia Guaifenesin (Robitussin) 20 ml PO Q4H PRN PRN PRN Reason: COUGH Hydrochlorothiazide (Hctz) 25 mg PO DAILY [facility] Last Admin: 05/16/19 09:35 Dose: 25 mg Documented by: Sodium Chloride () 250 mls @ 15 mls/hr IV .[id number] PRN PRN Reason: Saline Flush Cefazolin Sodium 2 gm/ Sodium (Chloride) 110 mls @ 150 mls/hr IV Q8 [facility] Last Infusion: 05/16/19 06:51 Dose: Infused Documented by: Insulin Human Lispro (Humalog [place] (Bkc)) 0 unit SC ACHS [facility]; Protocol Last Admin: 05/16/19 11:24 Dose: Not Given Documented by: Lisinopril (Zestril) 5 mg PO DAILY [facility] Last Admin: 05/16/19 09:34 Dose: 5 mg Documented by: Loratadine (Claritin) 10 mg PO DAILY [facility] Last Admin: 05/16/19 09:33 Dose: 10 mg Documented by: Metoprolol Succinate (Toprol Xl (Beta Keisha)) 25 mg PO DAILY [facility] Last Admin: 05/16/19 09:33 Dose: 25 mg Documented by: Morphine Sulfate () 1 mg IV Q3H PRN PRN PRN Reason: Pain Score 6-10/10 Multivitamins/Minerals (Multivitamin With Minerals) 1 tablet PO DAILY@0800 [facility] Last Admin: 05/16/19 09:33 Dose: 1 tablet Documented by: Naproxen (Naprosyn) 250 mg PO DAILY PRN PRN Reason: Pain Score 1-3/10 Oxycodone HCl (Oxyir) 5 mg PO Q4H PRN PRN PRN Reason: Pain Score 4-5/10 Oxymetazoline HCl (Afrin (Bkc)) 2 spray NS DAILY PRN PRN PRN Reason: ALLERGIES Promethazine HCl (Phenergan) 12.5 mg IV Q6H PRN PRN PRN Reason: Breakthrough nausea/vomiting Senna/Docusate Sodium (Senokot-S, Melony-Colace) 2 tablet PO BID PRN PRN PRN Reason: Constipation Sodium Chloride () 10 - 40 ml IV UD PRN PRN Reason: SALINE FLUSH Last Admin: 05/16/19 09:36 Dose: 10 ml Documented by: STROKE Vital Signs/Narrative: Vital Signs Temp Pulse Resp BP Pulse Ox 05/16/19 09:33 102 H 05/16/19 08:49 80 14 95 05/16/19 08:48 98.1 F 80 14 140/82 H 95 05/16/19 07:38 95 Medical Necessity - Tobacco Use Smoking Status: Never smoker Assessment/Plan All Active Problems (Last Updated 05/10/18 @ 09:44 by Zonia Yanez) Cellulitis of left lower leg (Acute) Ulcer of left lower extremity with fat layer exposed (Acute) Lower extremity edema (Acute) Pain in left lower leg (Acute) Controlled diabetes mellitus (Acute) Nonsustained ventricular tachycardia (Resolved) The patient is a 63 year old M with history of diabetes mellitus type 2, CVA x2 and PVCs came to ER with left leg pain, erythema, warm along with subjective fever and chills gradually worsening for about 1 week In ED, vitals did not show fever but heart rate 100/min, blood pressure 128/60. No hypoxia. General labs shows leukocytosis 14,000 with left shift, 80% neutrophils. Sodium 131, glucose 107, alkaline phosphatase 122 rest within normal limit. Patient was given 1 dose of vancomycin and Zosyn and further admitted on the floor. [] 1. Left lower leg cellulitis with blister, suggestive of staph infection (OR Strep lymphangitis as prior note of Dr. Ferris): Patient is being admitted on MedSurg floor. Patient had 1 dose of vancomycin and Zosyn. Vitals are stable. No purulence on exam. Started on IV cefazolin 1 g every 8 hourly. MRSA nasal screen negative. 05/15 2019: Worsening of leukocytosis. There is localized purplish to black discoloration of his skin around the ulcer. Bilateral lower legs pulses are good, equal and symmetrical. Antibiotic changed to IV vancomycin and Zosyn. ID and government affairs fellow consult. MRI of left lower extremity ordered. Clinical information conveyed to the patient. CRP 140. Lactic acid 1.2. Pharmacy to follow Vanco dosing and trough. 05/16: Seen by ID and government affairs fellow. 3 cc of purulent drainage was done. There is localized ecchymosis around the right medial malleolus extending up to the Achilles tendon. No need for CT or MRI. MRI was canceled yesterday. Vancomycin and Zosyn was just given 1 dose on 05/15 and then ID changed to cefazolin 2 g IV every 8 hourly. Vancomycin and Zosyn were discontinued. Mild leukocytosis. 2. Diabetes mellitus type II: Glucose is controlled. Accu-Chek before meals and at bedtime and cover with Humalog sliding scale. A1c 6.1. Good glucose control. 05/15: Good glucose control. 05/16: Accu-Cheks reviewed. Good glucose control. 3. 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 Patient is on Aggrenox, lisinopril and metoprolol at home. Fasting lipid profile shows HDL 29, LDL 2028, triglyceride 52 and total cholesterol 68. Started on atorvastatin 20 mg. This was discussed with the patient. 4. Hypertension, PVCs and paroxysmal A. fib: Patient is not on anticoagulant currently in normal sinus rhythm. Continue HCTZ. TSH 0.25 but free T4 is normal, 1.41. Most probably euthyroid sick syndrome. May need thyroid function test to be repeated after 1 month at normal baseline. 5. Diverticulitis type II: Glucose is controlled. Discontinue metformin. DVT prophylaxis: Lovenox 40 mg subcu daily Signout: ID and government affairs fellow is following the patient. Had IND. Possible discharge on Monday, 05/18 Code Visit Inpatient E&M: 82032 Subs Hosp L2
[2019-05-16 12:19] LABS: M R Staph aureus DNA By PCR Negative (Negative); Probe Check PASS; Specimen Processing Control PASS; Staph aureus DNA By PCR NEGATIVE (Negative)
[2019-05-16 16:45] LABS: Bedside Glucose 104 mg/dL (70-110)
[2019-05-16 21:21] LABS: Bedside Glucose 119 mg/dL (70-110)
[2019-05-17 02:30] VITALS: BP 128/77; PULSE 92; RESP 14; TEMP 36.7; O2SAT 95
[2019-05-17] MEDS: Cefazolin 2 GM in 0.9% Normal Saline 100 ML IV ×2 (05:49→13:48)
[2019-05-17 06:40] LABS: Bedside Glucose 112 mg/dL (70-110)
[2019-05-17 06:45] VITALS: O2SAT 95
[2019-05-17 06:56] LABS: Absolute Neutrophil Count 8.6 X10^3/uL (2.0-7.7); Basophil# 0.04 X10^3/uL; Basophil% 0.4 % (0-1); Eosinophil# 0.19 X10^3/uL; Eosinophils% 1.7 % (0-5); Hematocrit 31.4 % (40-54); Hemoglobin 10.2 g/dL (13.0-16.5); Mean Corp Hgb Conc 32.5 g/dL (32-36); Mean Corpuscular Hgb 28.9 pg (27.0-32.0); Mean Platelet Vol. 8.6 fl (6.2-12.0); Monocyte# 0.66 X10^3/uL; NRBC Flagged by Analyzer 0 % (0-5); Neutrophil # 8.62 X10^3/uL (2.7-7.7); Neutrophil % 78.7 % (47-70); Platelet Count 276 K/mm3 (150-450); RBC Distribution Width CV 13.1 % (11.6-14.6); RBC Distribution Width SD 42.6 fl (35.1-43.9); Red Blood Count 3.53 M/mm3 (4.6-6.2)
[2019-05-17 07:09] LABS: Anion Gap 9 (5-15); BUN 23 mg/dL (7-18); BUN/Creat Ratio 20.9 RATIO (10-20); Chloride 102 mmol/L (98-107); EST Glomerular Filtration Rate 72 mL/min (>60); Est Glom Filt Rate - Afr Amer 87 mL/min (>60); Estimated Creatinine Clearance 68.74 ml/min; Glucose 109 mg/dL (74-106); Potassium 3.9 mmol/L (3.5-5.1); Sodium Level 137 mmol/L (136-145)
--- NOTE | 2019-05-17 07:22 | PN_ITS ---
Patient Problems: Active and Suspected Problems (Last Updated 05/10/18 @ 09:44 by Zonia Yanez) Cellulitis of left lower leg (Acute) Ulcer of left lower extremity with fat layer exposed (Acute) Lower extremity edema (Acute) Pain in left lower leg (Acute) Controlled diabetes mellitus (Acute) Subjective: This 63-year-old male was seen resting bedside for left lower extremity cellulitis with ulcer again earlier this morning. Patient relates that his pain has reduced even more since yesterday. Patient continues to deny any feelings of nausea, vomiting, fever, chills. Patient had no adverse events overnight. - Physical Exam Vitals/I&O's: Vital Signs Temp Pulse Resp BP Pulse Ox 98.1 F 92 14 128/77 H 95 05/17/19 02:30 05/17/19 02:30 05/17/19 02:30 05/17/19 02:30 05/17/19 02:30 Oxygen Delivery Method Room Air Weight: 90.1 kg Body Mass Index (BMI) 29.3 Finger Stick Blood Glucose 134 Intake and Output for Last 24 Hours 05/15/19 05/16/19 05/17/19 23:59 23:59 23:59 Intake Total 1999 / 1999 2680 / 3280 900 / 900 Output Total 800 / 800 3300 / 4100 1800 / 1800 Balance 1200 / 1200 -620 / -820 -900 / -900 General: Alert, Oriented x3, Cooperative, No apparent distress Extremities: No cyanosis, Capillary Refill Less than 3 Seconds, No Calf Tenderness - Negative Raul and Ziegler signs left lower extremity, Diminished Peripheral Pulses, Edema - Improving left lower extremity edema Skin: Ulcer/ Wound - Ulcer/bedside I&D site to the left lower leg. The tissue remains slightly indurated and there is some skin discontinuity with granulation tissue to the posterior medial aspect of the left ankle. Small approximately 1 to 1-1/2 cm incision still noted from patient's bedside I&D by Dr. Albrecht. There was no purulence able to be expressed from the area today. There continues to be no malodor. No significant bogginess appreciated to the area today. The surrounding erythema has decreased again. Overall the site continues to show improvement each day clinically. Musculoskeletal: Tenderness - Some tenderness with ulcer/I&D site manipulation. There is no pain on palpation or passive range of motion of the ankle subtalar or midfoot left Neurological: Sensory exam intact to light touch and pain Psych/Mental Status: Normal Affect, Appropriate Microbiology Past 72 Hours 05/16/19 07:50 Wound - Aerobic & Anaerobic Swabs Gram Stain - Final 05/15/19 14:00 Wound Drainage - Aerobic & Anaerobic Swabs Gram Stain - Final 05/15/19 14:00 Wound Drainage - Aerobic & Anaerobic Swabs Wound Culture - Preliminary Gram Positive Cocci 05/13/19 14:34 Blood Culture (Wb) - Anticubital Left Blood Culture - Preliminary No growth in 48 hours. 05/13/19 14:20 Blood Culture (Wb) - Anticubital Left Blood Culture - Preliminary No growth in 48 hours. Laboratory Results 05/16/19 07:50: S.aureus Protein A PCR NEGATIVE, MRSA (PCR) Negative 05/16/19 09:30: WBC 16.2 H, RBC 3.80 L, Hgb 10.9 L, Hct 34.1 L, MCV 89.7, MCH 28.7, MCHC 32.0, RDW Std Deviation 43.0, RDW Coeff of Simon 13.1, Plt Count 272, MPV 8.5, Immature Gran % (Auto) 2.500 H, Neut % (Auto) 85.2 H, Lymph % (Auto) 6.4 L, [place] % (Auto) 4.6, Eos % (Auto) 1.0, Baso % (Auto) 0.3, Absolute Neuts (auto) 13.8 H, Absolute Lymphs (auto) 1.03, Nucleated RBC % 0, ESR 98 H 05/16/19 11:22: POC Glucose 111 H 05/16/19 16:24: POC Glucose 104 05/16/19 21:13: POC Glucose 119 H 05/17/19 06:15: WBC 11.0, RBC 3.53 L, Hgb 10.2 L, Hct 31.4 L, MCV 89.0, MCH 28.9, MCHC 32.5, RDW Std Deviation 42.6, RDW Coeff of Simon 13.1, Plt Count 276, MPV 8.6, Immature Gran % (Auto) 2.200 H, Neut % (Auto) 78.7 H, Lymph % (Auto) 11.0 L, [place] % (Auto) 6.0, Eos % (Auto) 1.7, Baso % (Auto) 0.4, Absolute Neuts (auto) 8.6 H, Absolute Lymphs (auto) 1.20, Nucleated RBC % 0 05/17/19 06:15: Sodium 137, Potassium 3.9, Chloride 102, Carbon Dioxide 26.0, Anion Gap 9, BUN 23 H, Creatinine 1.10, Estim Creat Clear Calc 68.74, Est GFR (MDRD) Af Amer 87, Est GFR (MDRD) Non-Af 72, BUN/Creatinine Ratio 20.9 H, Glucose 109 H, Calcium 9.0 05/17/19 06:33: POC Glucose 112 H Current Medications Acetaminophen (Tylenol) 650 mg PO Q6H PRN PRN PRN Reason: Pain Score 1-3/Temp > 100.7 F Last Admin: 05/14/19 20:37 Dose: 650 mg Documented by: Albuterol Sulfate (Ventolin Aerosols) 2.5 mg INHALATION Q2H PRN PRN PRN Reason: Shortness of Breath/Wheezing Dextrose (D50w Syringe) 0 gm IV X1 PRN; Protocol PRN Reason: Hypoglycemia Dipyridamole/Aspirin (Aggrenox 25 Mg-200 Mg) 1 capsule PO BID [facility] Last Admin: 05/16/19 21:35 Dose: 1 capsule Documented by: Enoxaparin Sodium (Lovenox) 40 mg SC DAILY@1000 [facility] Last Admin: 05/16/19 09:35 Dose: 40 mg Documented by: Fluticasone Propionate (Flonase Nasal [place]) 2 spray NASAL DAILY [facility] Last Admin: 05/16/19 09:35 Dose: 2 spray Documented by: Glucagon () 1 mg IM .X1 PRN PRN Reason: Hypoglycemia Guaifenesin (Robitussin) 20 ml PO Q4H PRN PRN PRN Reason: COUGH Hydrochlorothiazide (Hctz) 25 mg PO DAILY [facility] Last Admin: 05/16/19 09:35 Dose: 25 mg Documented by: Sodium Chloride () 250 mls @ 15 mls/hr IV .[id number] PRN PRN Reason: Saline Flush Cefazolin Sodium 2 gm/ Sodium (Chloride) 110 mls @ 150 mls/hr IV Q8 [facility] Last Admin: 05/17/19 05:49 Dose: 150 mls/hr Documented by: Insulin Human Lispro (Humalog Kwikpen (Bkc)) 0 unit SC ACHS [facility]; Protocol Last Admin: 05/17/19 06:41 Dose: Not Given Documented by: Lisinopril (Zestril) 5 mg PO DAILY [facility] Last Admin: 05/16/19 09:34 Dose: 5 mg Documented by: Loratadine (Claritin) 10 mg PO DAILY [facility] Last Admin: 05/16/19 09:33 Dose: 10 mg Documented by: Metoprolol Succinate (Toprol Xl (Beta Keisha)) 25 mg PO DAILY [facility] Last Admin: 05/16/19 09:33 Dose: 25 mg Documented by: Morphine Sulfate () 1 mg IV Q3H PRN PRN PRN Reason: Pain Score 6-10/10 Multivitamins/Minerals (Multivitamin With Minerals) 1 tablet PO DAILY@0800 [facility] Last Admin: 05/16/19 09:33 Dose: 1 tablet Documented by: Naproxen (Naprosyn) 250 mg PO DAILY PRN PRN Reason: Pain Score 1-3/10 Oxycodone HCl (Oxyir) 5 mg PO Q4H PRN PRN PRN Reason: Pain Score 4-5/10 Oxymetazoline HCl (Afrin (Bkc)) 2 spray NS DAILY PRN PRN PRN Reason: ALLERGIES Promethazine HCl (Phenergan) 12.5 mg IV Q6H PRN PRN PRN Reason: Breakthrough nausea/vomiting Senna/Docusate Sodium (Senokot-S, Melony-Colace) 2 tablet PO BID PRN PRN PRN Reason: Constipation Sodium Chloride () 10 - 40 ml IV UD PRN PRN Reason: SALINE FLUSH Last Admin: 05/16/19 16:34 Dose: 10 ml Documented by: Medical Necessity - Tobacco Use Smoking Status: Never smoker Assessment/Plan All Active Problems (Last Updated 05/10/18 @ 09:44 by Zonia Yanez) Cellulitis of left lower leg (Acute) Ulcer of left lower extremity with fat layer exposed (Acute) Lower extremity edema (Acute) Pain in left lower leg (Acute) Controlled diabetes mellitus (Acute) Nonsustained ventricular tachycardia (Resolved) Ulcer left lower leg Left lower leg cellulitis-improving Left lower leg edema-improving DM This patient was carefully examined and evaluated resting in bed early this morning. Patient had a bedside I&D performed yesterday morning by Dr. Albrecht. Patient states that he had no adverse events overnight and continues to feel better each day. Patient relates that his pain is well controlled and that his pain is even better today than it was yesterday. Patient's vital signs remained stable. Patient's WBC today is 11. Blood cultures showed no growth after 48 hours. Ulcer cultures taken Monday show preliminary growth of gram-positive cocci. Culture results from the patient's bedside I&D by Dr. Albrecht yesterday are still pending. Patient currently on IV antibiotics and being followed by infectious disease. LEAS studies were done that showed biphasic Doppler w aveforms at the ankle level on the left. The resting left ankle brachial index was noted to be supranormal indicating vessel calcification, and the digital brachial indices are moderately diminished on the left side. We discussed with the patient that this could slow the patient's ulcer healing progress. The patient will be referred to vascular specialty on an outpatient basis. The ulcer site and lower leg were carefully examined with the dressing down. I&D site was milked in all directions and no further purulence was expressed today. The surrounding erythema continues to improve and the area continues to look better clinically each day. The site was carefully cleansed, and the I&D site was flushed with normal sterile saline. Slightly moistened 4 x 4 was slightly packed into the open I&D site, followed by 4 x 4's, ABDs, Kerlix, and lightly wrapped Alex bandage. Continued medical management and DVT prophylaxis appreciated per primary team. Podiatry will continue to follow this patient while in house.
[2019-05-17] MEDS: Multivitamins,Ther W-Minerals Tablet 1 TABLET PO (08:02)
[2019-05-17 08:12] VITALS: BP 136/72; PULSE 84; RESP 20; TEMP 36.7; O2SAT 95
[2019-05-17] MEDS: Lisinopril 5 MG Tablet PO (09:37)
[2019-05-17 09:38] VITALS: BP 136/72; PULSE 84
[2019-05-17] MEDS: Metoprolol(XL)Succ 25 MG Tablet PO (09:38)
[2019-05-17] MEDS: hydroCHLOROthiazide 25 MG Tablet PO (09:40)
[2019-05-17] MEDS: Fluticasone 0.05% 1 SPRAY NASAL.SRY 2 SPRAY NASAL (09:41)
[2019-05-17] MEDS: Loratadine 10 MG Tablet PO (09:41)
[2019-05-17] MEDS: Enoxaparin 40 MG/0.4 ML Syringe SC (09:42)
[2019-05-17 11:20] LABS: Bedside Glucose 131 mg/dL (70-110)
--- NOTE | 2019-05-17 12:39 | PCM.PN.ID ---
Patient Problems: Active and Suspected Problems (Last Updated 05/10/18 @ 09:44 by Zonia Yanez) Cellulitis of left lower leg (Acute) Ulcer of left lower extremity with fat layer exposed (Acute) Lower extremity edema (Acute) Pain in left lower leg (Acute) Controlled diabetes mellitus (Acute) Subjective: Feeling better, no fever - Physical Exam Vitals/I&O's: Vital Signs Temp Pulse Resp BP Pulse Ox 98.1 F 84 20 H 136/72 H 95 05/17/19 08:12 05/17/19 09:38 05/17/19 08:12 05/17/19 09:38 05/17/19 08:12 Oxygen Delivery Method Room Air Weight: 90.1 kg Body Mass Index (BMI) 29.3 Finger Stick Blood Glucose 134 Intake and Output for Last 24 Hours 05/15/19 05/16/19 05/17/19 23:59 23:59 23:59 Intake Total 1999 / 1999 2680 / 3280 1610 / 1610 Output Total 800 / 800 3300 / 4100 1800 / 1800 Balance 1200 / 1200 -620 / -820 -190 / -190 General: Alert, Cooperative, No apparent distress Lungs: Clear to auscultation, Normal air movement Cardiovascular: Regular rate, Regular Rhythm Abdomen: Soft, Non Tender, Non-Distended Skin: Ulcer/ Wound - reviewed photo Microbiology Past 72 Hours 05/16/19 07:50 Wound - Aerobic & Anaerobic Swabs Gram Stain - Final 05/16/19 07:50 Wound - Aerobic & Anaerobic Swabs Wound Culture - Preliminary Beta streptococcus 05/15/19 14:00 Wound Drainage - Aerobic & Anaerobic Swabs Gram Stain - Final 05/15/19 14:00 Wound Drainage - Aerobic & Anaerobic Swabs Wound Culture - Final Staphylococcus epidermidis 05/15/19 14:00 Wound Drainage - Aerobic & Anaerobic Swabs Anaerobic Culture - Preliminary No anaerobic bacteria isolated. 05/13/19 14:34 Blood Culture (Wb) - Anticubital Left Blood Culture - Preliminary No growth in 48 hours. 05/13/19 14:20 Blood Culture (Wb) - Anticubital Left Blood Culture - Preliminary No growth in 48 hours. Laboratory Results 05/16/19 16:24: POC Glucose 104 05/16/19 21:13: POC Glucose 119 H 05/17/19 06:15: WBC 11.0, RBC 3.53 L, Hgb 10.2 L, Hct 31.4 L, MCV 89.0, MCH 28.9, MCHC 32.5, RDW Std Deviation 42.6, RDW Coeff of Simon 13.1, Plt Count 276, MPV 8.6, Immature Gran % (Auto) 2.200 H, Neut % (Auto) 78.7 H, Lymph % (Auto) 11.0 L, Benson % (Auto) 6.0, Eos % (Auto) 1.7, Baso % (Auto) 0.4, Absolute Neuts (auto) 8.6 H, Absolute Lymphs (auto) 1.20, Nucleated RBC % 0 05/17/19 06:15: Sodium 137, Potassium 3.9, Chloride 102, Carbon Dioxide 26.0, Anion Gap 9, BUN 23 H, Creatinine 1.10, Estim Creat Clear Calc 68.74, Est GFR (MDRD) Af Amer 87, Est GFR (MDRD) Non-Af 72, BUN/Creatinine Ratio 20.9 H, Glucose 109 H, Calcium 9.0 05/17/19 06:33: POC Glucose 112 H 05/17/19 11:15: POC Glucose 131 H Current Medications Acetaminophen (Tylenol) 650 mg PO Q6H PRN PRN PRN Reason: Pain Score 1-3/Temp > 100.7 F Last Admin: 05/14/19 20:37 Dose: 650 mg Documented by: Albuterol Sulfate (Ventolin Aerosols) 2.5 mg INHALATION Q2H PRN PRN PRN Reason: Shortness of Breath/Wheezing Dextrose (D50w Syringe) 0 gm IV X1 PRN; Protocol PRN Reason: Hypoglycemia Dipyridamole/Aspirin (Aggrenox 25 Mg-200 Mg) 1 capsule PO BID [facility] Last Admin: 05/17/19 09:41 Dose: 1 capsule Documented by: Doxycycline Monohydrate (Doxycycline) 100 mg PO BID [facility] Enoxaparin Sodium (Lovenox) 40 mg SC DAILY@1000 [facility] Last Admin: 05/17/19 09:42 Dose: 40 mg Documented by: Fluticasone Propionate (Flonase Nasal [place]) 2 spray NASAL DAILY [facility] Last Admin: 05/17/19 09:41 Dose: 2 spray Documented by: Glucagon () 1 mg IM .X1 PRN PRN Reason: Hypoglycemia Guaifenesin (Robitussin) 20 ml PO Q4H PRN PRN PRN Reason: COUGH Hydrochlorothiazide (Hctz) 25 mg PO DAILY [facility] Last Admin: 05/17/19 09:40 Dose: 25 mg Documented by: Sodium Chloride () 250 mls @ 15 mls/hr IV .[id number] PRN PRN Reason: Saline Flush Cefazolin Sodium 2 gm/ Sodium (Chloride) 110 mls @ 150 mls/hr IV Q8 [facility] Last Infusion: 05/17/19 06:33 Dose: Infused Documented by: Insulin Human Lispro (Humalog Kwikpen (Bkc)) 0 unit SC ACHS [facility]; Protocol Last Admin: 05/17/19 11:30 Dose: Not Given Documented by: Lisinopril (Zestril) 5 mg PO DAILY [facility] Last Admin: 05/17/19 09:37 Dose: 5 mg Documented by: Loratadine (Claritin) 10 mg PO DAILY [facility] Last Admin: 05/17/19 09:41 Dose: 10 mg Documented by: Metoprolol Succinate (Toprol Xl (Beta Keisha)) 25 mg PO DAILY [facility] Last Admin: 05/17/19 09:38 Dose: 25 mg Documented by: Morphine Sulfate () 1 mg IV Q3H PRN PRN PRN Reason: Pain Score 6-10/10 Multivitamins/Minerals (Multivitamin With Minerals) 1 tablet PO DAILY@0800 [facility] Last Admin: 05/17/19 08:02 Dose: 1 tablet Documented by: Naproxen (Naprosyn) 250 mg PO DAILY PRN PRN Reason: Pain Score 1-3/10 Oxycodone HCl (Oxyir) 5 mg PO Q4H PRN PRN PRN Reason: Pain Score 4-5/10 Oxymetazoline HCl (Afrin (Bkc)) 2 spray NS DAILY PRN PRN PRN Reason: ALLERGIES Promethazine HCl (Phenergan) 12.5 mg IV Q6H PRN PRN PRN Reason: Breakthrough nausea/vomiting Senna/Docusate Sodium (Senokot-S, Melony-Colace) 2 tablet PO BID PRN PRN PRN Reason: Constipation Sodium Chloride () 10 - 40 ml IV UD PRN PRN Reason: SALINE FLUSH Last Admin: 05/16/19 16:34 Dose: 10 ml Documented by: Medical Necessity - Tobacco Use Smoking Status: Never smoker Route of nutrition/ use of supplements: [] Nutritional Intake: [] IV Site: [] Hammond Catheter: [] - Assessment/Plan Antibiotics: [] Assessment/Plan: [] Active and Suspected Problems (Last Updated 05/10/18 @ 09:44 by Zonia Yanez) Cellulitis of left lower leg (Acute) sepsis due to LLE cellulitis - Much improved redness. Bedside I&D done 05/16 with 3ml pus drained. MRSA and MSSA pcr neg. On cefazolin. Wound cx with MRSE, I&D cx with strep. Ok for d/c home on doxy and duricef for one week course. Will follow, d/w primary team, wrote rx
--- NOTE | 2019-05-17 13:19 | CASEMGMT ---
MUNIR NEGRON NOTE: Spoke with Evelin, Wound nurse. She states she has spoken with pt/ and is agreeable to doing dressing changes. Evelin states she will do dressing change teaching with prior to pt being discharged. MUNIR NEGRON to room to talk with pt at this time. Pt states he does not feel he will need HHC for any further teaching/dressing change instructions. He confirms his is agreeable to learning and doing the dressing changes. Pt made aware, if in the future, he feels he needs HHC, to talk with his PCP. Pt voices understanding. Pt denies having any concerns w/discharge or any further needs. John ROSEN RN, CM
[2019-05-17] MEDS: Doxycycline 100 MG CAPSULE PO (13:48)
--- NOTE | 2019-05-17 14:51 | NURSING ---
Dressing changed to the left lower leg with patient's . feels she will be able to easily change the dressing at home. some supplies sent with patient and there is also a script on the front of the chart for dressing supplies. pt tolerated dressing change well. leg elevated up on pillows. awaiting discharge paperwork and patient ready to go home. no further questions at this time.
[2019-05-17 15:02] VITALS: BP 132/80; PULSE 93; RESP 16; TEMP 37; O2SAT 96
--- NOTE | 2019-05-17 15:30 | DCINST_ITS ---
- Discharge Diagnoses Current Active Problems: Current Active and Chronic Problems (Last Updated 05/10/18 @ 09:44 by Zonia Yanez) Cellulitis of left lower leg (Acute) Ulcer of left lower extremity with fat layer exposed (Acute) Lower extremity edema (Acute) Pain in left lower leg (Acute) Controlled diabetes mellitus (Acute) You will use the following diet at home:: Calorie/Carbohydrate Controlled (specify 1200, 1400, etc) - 1800 christie ADA Your food should be the consistency of: Regular Your liquids should be the consistency of: Regular/Thin Discharge Activity: Return to Normal Activity Weight Bearing Status: Weight bearing as tolerated Instructions: Cellulitis Allergies/Adverse Reactions: Allergies No Known Allergies Allergy (Verified 05/13/19 13:15) Medications to take at Discharge Fluticasone 0.05% [Flonase Nasal [place]] 2 spray NASAL DAILY #1 bottle 12/01/15 Loratadine [Claritin] 10 mg PO DAILY tab 12/01/15 aspirin 25 mg-dipyridamole 200 mg capsule,ext.release 12 hr multiphase 1 cap PO BID 04/25/18 hydrochlorothiazide 25 mg tablet 25 mg PO DAILY 10/24/18 Metformin HCl 500 mg PO BID 05/13/19 Multivitamin with Minerals [Multiple Vitamin] 1 ea PO DAILY 05/13/19 Naproxen Sodium [Aleve] 220 mg PO DAILY PRN 05/13/19 Oxymetazoline HCl [Afrin] 2 puff NS DAILY PRN PRN 05/13/19 lisinopril 5 mg tablet 5 mg PO DAILY #90 tab 05/16/19 metoprolol succinate ER 25 mg tablet,extended release 24 hr 25 mg PO DAILY #90 tab 05/16/19 Cefadroxil Hydrate [Duricef] 500 mg PO BID #14 cap 05/17/19 Doxycycline 100 mg PO BID #14 cap 05/17/19 The following prescriptions were given: Doxycycline 100 mg PO BID #14 cap Transmission Status: Received by SEAN PORTILLO RD Cefadroxil Hydrate [Duricef] 500 mg PO BID #14 cap Transmission Status: Received by SEAN PORTILLO RD Primary Care Physician: Tanmay Caruso MD [Primary Care Provider] - Please follow up with your Primary Care Physician in: 2 weeks Test Results: Test results from this visit will be discussed in further detail at your follow- up appointment, if applicable. Please Follow Up With: Dr Lakhani When: next week Please Follow Up With: Mor Carvajal MD When: as needed
--- NOTE | 2019-05-19 08:34 | DS.PCM_ITS ---
Discharge Date and Diagnosis - Problem List Patient Problems: Active and Suspected Problems (Last Updated 05/10/18 @ 09:44 by Zonia Yanez) Abscess of left leg (Acute) Date of Admission: 05/13/19 Date of Discharge: 05/17/19 - Primary Discharge Diagnosis Active and Suspected Problems (Last Updated 05/10/18 @ 09:44 by Zonia Yanez) #1 left lower extremity cellulitis-secondary to Streptococcus pyogenes and staph epidermidis #2 type 2 diabetes #3 cerebrovascular disease #4 hypertension - Secondary Discharge Diagnosis Chronic Problems (Last Updated 05/10/18 @ 09:44 by Zonia Yanez) Paroxysmal atrial fibrillation (Chronic) Premature ventricular contractions (Chronic) CVA (cerebral vascular accident) (Chronic) Essential (primary) hypertension (Chronic) Hospital Course and Treatment Consultations 05/13/19 23:31 Consult: Onc/Wound/talent partner Routine Comment: Reason for Consult:: cellulitis to LLE with opened blister Operations: None Procedures: None Summary of Care Provided: The patient is a 63 year old M who was seen in the emergency room at [facility] with a chief complaint of left lower extremity cellulitis. Patient had been admitted to the hospital and was given IV antibiotics and discharged home on Keflex but the patient was unsure about his medication and did not take the Keflex. He presented to his PCPs office with worsening erythema and edema in the left lower extremity and was sent to the emergency room for evaluation. Labs showed the patient have a leukocytosis. Patient was admitted to [place] [address], he was placed on IV antibiotics, he was seen in consultation by podiatry and infectious diseases. Cultures came back positive for staph epidermidis and Streptococcus pyogenes. Patient improved during his hospital stay. On examination he appeared in good health and spirits. Vital signs as docum ented. Skin warm and dry and without overt rashes. Neck without JVD. Lungs clear. Heart exam notable for regular rhythm, normal sounds and absence of murmurs, rubs or gallops. Abdomen unremarkable and without evidence of organomegaly, masses, or abdominal aortic enlargement. Neuro: Cranial nerves II through XII are grossly intact, no focal motor deficits were noted, sensation to light touch and pinprick intact. Psych: Patient is alert and oriented x3, he does not appear anxious or depressed. On 05/17/2019, patient was seen and examined and felt to be in stable condition for discharge home. Patient Problems: Active and Suspected Problems (Last Updated 05/10/18 @ 09:44 by Zonia Yanez) Abscess of left leg (Acute) - Physical Exam Vitals/I&O's: Vital Signs Temp Pulse Resp BP Pulse Ox 98.6 F 93 16 132/80 H 96 05/17/19 15:02 05/17/19 15:02 05/17/19 15:02 05/17/19 15:02 05/17/19 15:02 Oxygen Delivery Method Room Air Weight: 90.1 kg Body Mass Index (BMI) 29.3 Finger Stick Blood Glucose 134 Intake and Output for Last 24 Hours 05/17/19 05/18/19 05/19/19 23:59 23:59 23:59 Intake Total 1720 / 1720 Output Total 1800 / 1800 Balance -80 / -80 Microbiology Past 72 Hours 05/16/19 07:50 Wound - Aerobic & Anaerobic Swabs Gram Stain - Final 05/16/19 07:50 Wound - Aerobic & Anaerobic Swabs Wound Culture - Final Streptococcus pyogenes 05/13/19 14:34 Blood Culture (Wb) - Anticubital Left Blood Culture - Final No growth in 5 days. 05/13/19 14:20 Blood Culture (Wb) - Anticubital Left Blood Culture - Final No growth in 5 days. 05/15/19 14:00 Wound Drainage - Aerobic & Anaerobic Swabs Gram Stain - Final 05/15/19 14:00 Wound Drainage - Aerobic & Anaerobic Swabs Wound Culture - Final Staphylococcus epidermidis 05/15/19 14:00 Wound Drainage - Aerobic & Anaerobic Swabs Anaerobic Culture - Preliminary No anaerobic bacteria isolated. Discharge Activity: Return to Normal Activity Weight Bearing Status: Weight bearing as tolerated Home Medications: Medications to take at Discharge Fluticasone 0.05% [Flonase Nasal [place]] 2 spray NASAL DAILY #1 bottle 12/01/15 Loratadine [Claritin] 10 mg PO DAILY tab 12/01/15 aspirin 25 mg-dipyridamole 200 mg capsule,ext.release 12 hr multiphase 1 cap PO BID 04/25/18 hydrochlorothiazide 25 mg tablet 25 mg PO DAILY 10/24/18 Metformin HCl 500 mg PO BID 05/13/19 Multivitamin with Minerals [Multiple Vitamin] 1 ea PO DAILY 05/13/19 Naproxen Sodium [Aleve] 220 mg PO DAILY PRN 05/13/19 Oxymetazoline HCl [Afrin] 2 puff NS DAILY PRN PRN 05/13/19 lisinopril 5 mg tablet 5 mg PO DAILY #90 tab 05/16/19 metoprolol succinate ER 25 mg tablet,extended release 24 hr 25 mg PO DAILY #90 tab 05/16/19 Cefadroxil Hydrate [Duricef] 500 mg PO BID #14 cap 05/17/19 Doxycycline 100 mg PO BID #14 cap 05/17/19 Following Prescrptions Were Given to Patient: Doxycycline 100 mg PO BID #14 cap Transmission Status: Received by [facility] Cefadroxil Hydrate [Duricef] 500 mg PO BID #14 cap Transmission Status: Received by [facility] Primary Care Physician: Tanmay Caruso MD [Primary Care Provider] - Please follow up with your Primary Care Physician in: 2 weeks Please Follow Up With: Dr Lakhani When: next week Please Follow Up With: Mor Carvajal MD When: as needed Patient Instructions: Cellulitis Disposition: Home Minutes spent on discharge:: 32 Patient Condition:: Stable Medical Necessity - Tobacco Use Smoking Status: Never smoker Meaningful Use Info Meaningful Use Diagnoses (Choose all that apply): None applicable Code Visit Inpatient E&M: 13183 Disch Hosp
--- NOTE | 2019-05-20 14:57 | CASEMGMT ---
MUNIR CM DC PHONE CALL DC DATE: 05.17.19 DC Disposition: Home Diagnosis on Discharge: cellulitis of LLL LACE/STRATA: 06/10 Attempted call to phone. Message that phone was unable to take call. Terese ROSEN RN ACM
== END 2019-05-17 16:01 | disposition home or self-care (01) | DRG 872 ==
LOC: ED 16:09 → MS3 16:43
PROVIDERS: Podiatrist; Admitting Provider Internal Medicine; Emergency Provider Emergency Medicine; Family Provider Family Medicine; PCP Family Medicine; Referring Provider Internal Medicine; Visit Provider Internal Medicine
DX: A41.9 Sepsis, unspecified organism (principal); L03.116 Cellulitis of left lower limb; L02.416 Cutaneous abscess of left lower limb; I10 Essential (primary) hypertension; E11.9 Type 2 diabetes mellitus without complications; Z23 Encounter for immunization; B95.4 Other streptococcus as the cause of diseases classified elsewhere; B95.7 Other staphylococcus as the cause of diseases classified elsewhere; I69.331 Monoplegia of upper limb following cerebral infarction affecting right dominant side; Z79.84 Long term (current) use of oral hypoglycemic drugs; Z79.899 Other long term (current) drug therapy
CPT/HCPCS: 36415; 73610; 80048; 80053; 80061; 82962; 83036; 83605; 83735; 84439; 84443; 85025; 85652; 86140; 87040; 87070; 87075; 87077; 87186; 87205; 87640; 87641; 93923; 93971; 97116; 97162; 97165; 97530; 97802; 99251; 99284; J7030; J7040; J7050; 90686; A4216; G0463

== ENCOUNTER → 2019-06-12 09:44 | Outpatient (CLI) | payer OTHER, SELFPAY ==
[2019-06-05 08:58] VITALS: BMI 28.1
[2019-06-12 11:15] VITALS: BP 142/68; PULSE 97; RESP 18; TEMP 36.2
[2019-06-12 13:05] LABS: T4 Total, Thyroxin 9.5 ug/dL (4.5-12.1); Thyroid Stim Hormone (TSH) 0.58 uIU/mL (0.358-3.74)
== END ==
PROVIDERS: Family Provider Family Medicine; PCP Family Medicine; Referring Provider Family Medicine; Visit Provider Family Medicine
DX: R63.4 Abnormal weight loss (principal)
CPT/HCPCS: 36415; 84436; 84443; 84481

== ENCOUNTER 2019-06-12 11:15 | Outpatient (RCR) | payer OTHER, SELFPAY ==
[2019-05-29 08:12] VITALS: BMI 29.6
[2019-05-29 08:43] VITALS: BP 143/75; PULSE 86; RESP 18; TEMP 36.2; BMI 28.1
--- NOTE | 2019-05-29 09:59 | PCM.WC.PN ---
(1) Diabetes mellitus with complication Status: Chronic Code(s): E11.8 - Type 2 diabetes mellitus with unspecified complications (2) Cellulitis of left lower leg Status: Resolved Code(s): L03.116 - Cellulitis of left lower limb (3) Ulcer of left lower extremity with fat layer exposed Status: Acute Code(s): L97.922 - Non-pressure chronic ulcer of unspecified part of left lower leg with fat layer exposed (4) Lower extremity edema Status: Acute Code(s): R60.0 - Localized edema Type of Wound Date of Service: 05/29/19 Chief Complaint: Right leg History of Wound: This patient was admitted to the hospital on 05/13/2018 for a right leg infection with wound. He had subsequent abscess formation which was drained. It grew out strep pyogenes and staph epidermidis bacteria. He was placed on antibiotics and has been demonstrating improvement. He now is following up for remaining ulcer at this site and resolving cellulitis. He denies fever, chill, nausea, vomiting. His pain is resolved. Progress of Wound: Improving - Physical Exam Vital Signs Temp Pulse Resp BP 97.1 F L 86 18 143/75 H 05/29/19 08:43 05/29/19 08:43 05/29/19 08:43 05/29/19 08:43 General: Alert, Oriented x3, Cooperative, No apparent distress HEENT: Atraumatic Extremities: No cyanosis, Capillary Refill Less than 3 Seconds, No Calf Tenderness, Diminished Peripheral Pulses, Edema - Decreased Skin: Ulcer/ Wound - No purulence on expression, erythema, string, odor, infection. The peripheral hyperpigmentation ecchymosis to the right posterior leg is resolving nicely. The ulcer bed is fibrous and granular and is not have any exposed tendon or bone noted. Peripheral skin is hairless and atrophic. Wound Measurements and Assessment WC - Nurse 1 - General Ulcer Measurement Start: 05/29/19 08:38 Freq: Status: Active Protocol: Activity Type Activity Date Activity User E-Sign Co-Sign Detail Recorded Client Recorded Date Recorded By Document 05/29/19 08:43 DL [id number] 05/29/19 09:02 DL 05/29/19 08:43 Wound Center Nurse 1 [Ulcer Assessment] #1 L Post LE -Current Size (cm) - Length 1 -Current Size (cm) - Width 1.7 -Current Size (cm) - Depth 0.6 -Total Square Cm 1.7 -Photo Taken Yes -Undermining/Tunneling Starts (O' 1 clock) -Undermining/Tunneling Ends (O'clock) 4 -Maximum Distance (cm) 0.7 -Classification - Thickness Full Thickness without Exposed Support Structure -Exudate Amt Small -Exudate Type Serosanguineous -Wound Margin Distinct, Outline Attached -Granulation Amt None Present (0 %) -Necrosis Amt Large (67-100%) -Necrotic Tissue Type Adherent Slough -Structure Exposed N/A -Texture (Melony-wound Skin Appearance) Localized Edema ,Scarring -Moisture (Melony-wound Skin Appearance No Abnormality ) -Color (Melony-wound Skin Appearance) Rubor -Temperature (Melony-wound Skin No Abnormality Appearance) (Pt Warm) -Tenderness on Palpation (Melony-wound No Skin Appearance) -Ulcer Cleansing Rinsed/ Irrigated with Saline -Foul Odor after Cleansing No -Anesthetic Used 4% Lidocaine Solution [Edema Assessment] -Left Calf (cm) 36 -Left Ankle (cm) 22.5 WC - Nurse 2 - General Ulcer CM Notes Start: 05/29/19 08:38 Freq: Status: Active Protocol: Activity Type Activity Date Activity User E-Sign Co-Sign Detail Recorded Client Recorded Date Recorded By Document 05/29/19 09:44 ANTONIA [id number] 05/29/19 09:47 ANTONIA 05/29/19 09:44 Wound Center Nurse 2 [Procedure/Treatment] #1 L Post LE -Time 09:45 -Correct Patient Yes -Correct Side, Site, Position Yes -Correct Procedure Yes -Procedure Performed Yes -Type of Procedure Debridement -Clinical Debridement Subcutaneous -Post Debridement Size (cm) - Length 0.8 -Post Debridement Size (cm) - Width 1.0 -Post Debridement Size (cm) - Depth 0.2 -Total Square Cm 0.80 -Wound/Ulcer Outcome Not Healed -Ulcer Cleansing Rinsed/ Irrigated with Saline -Foul Odor after Cleansing No -Bioengineered Tissue No -Bleeding Controlled with Pressure -Offloading No -Treatment Response Procedure Tolerated Well [See Physician Procedure note for Specifics] Pain Scale: 0-10 Numeric [Pain] -Is Patient Pain Free? Yes Musculoskeletal: No Tenderness to Palpation of Joints or Extremities, Muscle Wasting Neurological: Sensory exam intact to light touch and pain Psych/Mental Status: Normal Affect, Appropriate Debridement Note Post-Debridement Measurements/Treatment WC - Nurse 2 - General Ulcer CM Notes Start: 05/29/19 08:38 Freq: Status: Active Protocol: Activity Type Activity Date Activity User E-Sign Co-Sign Detail Recorded Client Recorded Date Recorded By Document 05/29/19 09:44 ANTONIA [id number] 05/29/19 09:47 ANTONIA 05/29/19 09:44 Wound Center Nurse 2 #1 L Post LE -Time 09:45 -Correct Patient Yes -Correct Side, Site, Position Yes -Correct Procedure Yes -Procedure Performed Yes -Type of Procedure Debridement -Clinical Debridement Subcutaneous -Post Debridement Size (cm) - Length 0.8 -Post Debridement Size (cm) - Width 1.0 -Post Debridement Size (cm) - Depth 0.2 -Total Square Cm 0.80 -Wound/Ulcer Outcome Not Healed -Ulcer Cleansing Rinsed/ Irrigated with Saline -Foul Odor after Cleansing No -Bioengineered Tissue No -Bleeding Controlled with Pressure -Offloading No -Treatment Response Procedure Tolerated Well Pain Scale: 0-10 Numeric Is Patient Pain Free? Yes Wound debrided: posterior leg Laterality: Left Wound Grade/Stage: grade 1 Type of Debridement: Excisional debridement Anesthesia Used: 5% Lidocaine Gel Depth: in the subcutaneous layer Percentage of wound debrided: 100 Instrument Used: #15 blade Tissue Removed: fibrous, devitalized subcutaneous, biofilm, slough Severity: Fat Layer Exposed Amount of bleeding with debridement: Mild Bleeding Controlled with: Pressure Patient tolerated procedure well Assessment/Plan Assessment: Right leg ulcer Plan: I reviewed and discussed his case. His ulcer site is healing well and his cellulitis has resolved. He was advised to complete his antibiotic course as recommended by infectious disease. It is noted his previous blood cultures during his last hospital admission were negative. He does not have any local signs of infection today and is doing well. This site was debrided in an excisional subcutaneous manner as noted in the clinical panel. To change the site daily with Reclamador Ag. There is significant reduction in size compared to last week. He was advised to decrease edema to the limb by wearing a Tubigrip compression stocking to elevate the limb at rest. To take nutritional supplementation to maintain a proper diet to optimize healing. To keep pressure off the site by avoiding laying right on this site which she reports he is already doing. Return to the wound healing center in 1 week or call sooner if he is any questions or concerns.
[2019-06-05 08:58] VITALS: BP 126/63; PULSE 83; RESP 20; TEMP 36.5; BMI 28.1
--- NOTE | 2019-06-05 09:49 | PCM.WC.PN ---
(1) Diabetes mellitus with complication Status: Chronic Current Visit: Yes Code(s): E11.8 - Type 2 diabetes mellitus with unspecified complications (2) Cellulitis of left lower leg Status: Resolved Current Visit: Yes Code(s): L03.116 - Cellulitis of left lower limb (3) Ulcer of left lower extremity with fat layer exposed Status: Acute Current Visit: Yes Code(s): L97.922 - Non-pressure chronic ulcer of unspecified part of left lower leg with fat layer exposed (4) Lower extremity edema Status: Acute Current Visit: Yes Code(s): R60.0 - Localized edema (5) Eczema Status: Chronic Current Visit: Yes Code(s): L30.9 - Dermatitis, unspecified Type of Wound Date of Service: 06/05/19 Chief Complaint: Right leg History of Wound: This patient was admitted to the hospital on 05/13/2018 for a right leg infection with wound. He had subsequent abscess formation which was drained. It grew out strep pyogenes and staph epidermidis bacteria. He was placed on antibiotics and has been demonstrating improvement. He now is following up for remaining ulcer at this site and resolving cellulitis. He denies fever, chill, nausea, vomiting. His pain is resolved. He relates new skin irritation this past week that is extending to the medial malleolus. He denies itching. He is not sure this is related to his underlying eczema condition. He does have some low-dose steroid cream at home. He asked if this is appropriate. Progress of Wound: Improving quality - Physical Exam Vital Signs Temp Pulse Resp BP 97.7 F L 83 20 H 126/63 H 06/05/19 08:58 06/05/19 08:58 06/05/19 08:58 06/05/19 08:58 General: Alert, Oriented x3, Cooperative, No apparent distress Extremities: No cyanosis, Capillary Refill Less than 3 Seconds, No Calf Tenderness, Diminished Peripheral Pulses, Edema - Decreased Skin: Ulcer/ Wound - No purulence, erythema, string, odor, infection, necrosis, undermining. There is continued fibrous tissue in the ulcer bed and increased central granulation tissue noted upon debridement. No exposed Achilles tendon. The peripheral skin is atrophic with some induration and inflammatory changes in a patch-like distribution. There is no blisters Wound Measurements and Assessment WC - Nurse 1 - General Ulcer Measurement Start: 05/29/19 08:38 Freq: Status: Active Protocol: Activity Type Activity Date Activity User E-Sign Co-Sign Detail Recorded Client Recorded Date Recorded By Document 06/05/19 08:58 DL [id number] 06/05/19 09:04 DL 06/05/19 08:58 Wound Center Nurse 1 [Ulcer Assessment] #1 L Post LE -Current Size (cm) - Length 0.8 -Current Size (cm) - Width 1.4 -Current Size (cm) - Depth 0.3 -Total Square Cm 1.12 -Photo Taken No -Exudate Amt Small -Exudate Type Serosanguineous -Wound Margin Thickened & Rolled Under -Granulation Amt Small (1-33%) -Granulation Quality [place] -Necrosis Amt Large (67-100%) -Necrotic Tissue Type Adherent Slough -Structure Exposed N/A -Texture (Melony-wound Skin Appearance) Excoriation, Scarring -Moisture (Melony-wound Skin Appearance Dry/Scaly ) -Color ([place]-wound Skin Appearance) Rubor -Temperature (Melony-wound Skin No Abnormality Appearance) (Pt Warm) -Tenderness on Palpation (Melony-wound No Skin Appearance) -Ulcer Cleansing Rinsed/ Irrigated with Saline -Foul Odor after Cleansing No -Anesthetic Used 5% Lidocaine Gel [Edema Assessment] -Left Calf (cm) 35.6 -Left Ankle (cm) 25 WC - Nurse 2 - General Ulcer CM Notes Start: 05/29/19 08:38 Freq: Status: Active Protocol: Activity Type Activity Date Activity User E-Sign Co-Sign Detail Recorded Client Recorded Date Recorded By Document 06/05/19 09:29 ANTONIA [id number] 06/05/19 09:32 06/05/19 09:29 Wound Center Nurse 2 [Procedure/Treatment] #1 L Post LE -Time 09:31 -Correct Patient Yes -Correct Side, Site, Position Yes -Correct Procedure Yes -Procedure Performed Yes -Type of Procedure Debridement -Clinical Debridement Subcutaneous -Post Debridement Size (cm) - Length 1.1 -Post Debridement Size (cm) - Width 1.3 -Post Debridement Size (cm) - Depth 0.2 -Total Square Cm 1.43 -Wound/Ulcer Outcome Not Healed -Ulcer Cleansing Rinsed/ Irrigated with Saline -Foul Odor after Cleansing No -Bioengineered Tissue No -Bleeding Controlled with Pressure -Offloading No -Treatment Response Procedure Tolerated Well [See Physician Procedure note for Specifics] Pain Scale: 0-10 Numeric [Pain] -Is Patient Pain Free? Yes Musculoskeletal: No Tenderness to Palpation of Joints or Extremities, Muscle Wasting Neurological: Sensory exam intact to light touch and pain Psych/Mental Status: Normal Affect, Appropriate Debridement Note Post-Debridement Measurements/Treatment WC - Nurse 2 - General Ulcer CM Notes Start: 05/29/19 08:38 Freq: Status: Active Protocol: Activity Type Activity Date Activity User E-Sign Co-Sign Detail Recorded Client Recorded Date Recorded By Document 05/29/19 09:44 [id number] 05/29/19 09:47 Document 06/05/19 09:29 [id number] 06/05/19 09:32 05/29/19 06/05/19 09:44 09:29 Wound Center Nurse 2 #1 L Post LE -Time 09:45 09:31 -Correct Patient Yes Yes -Correct Side, Site, Position Yes Yes -Correct Procedure Yes Yes -Procedure Performed Yes Yes -Type of Procedure Debridement Debridement -Clinical Debridement Subcutaneous Subcutaneous -Post Debridement Size (cm) - Length 0.8 1.1 -Post Debridement Size (cm) - Width 1.0 1.3 -Post Debridement Size (cm) - Depth 0.2 0.2 -Total Square Cm 0.80 1.43 -Wound/Ulcer Outcome Not Healed Not Healed -Ulcer Cleansing Rinsed/ Rinsed/ Irrigated with Irrigated with Saline Saline -Foul Odor after Cleansing No No -Bioengineered Tissue No No -Bleeding Controlled with Pressure Pressure -Offloading No No -Treatment Response Procedure Procedure Tolerated Well Tolerated Well Pain Scale: 0-10 Numeric Is Patient Pain Free? Yes Yes Wound debrided: posterior medial leg Laterality: Left Wound Grade/Stage: grade 1 Type of Debridement: Excisional debridement Anesthesia Used: 5% Lidocaine Gel Depth: in the subcutaneous layer Percentage of wound debrided: 100 Instrument Used: #15 blade Tissue Removed: fibrous, devitalized subcutaneous, biofilm, slough Severity: Fat Layer Exposed Amount of bleeding with debridement: Mild Bleeding Controlled with: Pressure Patient tolerated procedure well Assessment/Plan Active Problems (Last Updated 05/10/18 @ 09:44 by Zonia Yanez) Diabetes mellitus with complication (Chronic) Eczema (Chronic) Ulcer of left lower extremity with fat layer exposed (Acute) Lower extremity edema (Acute) Assessment: Right leg ulcer Plan: I reviewed and discussed his case. His ulcer site is healing well and his cellulitis has resolved. He is completed his course of antibiotics per infectious disease and I do not recommend additional antibiotics at this time. It is noted his previous blood cultures during his last hospital admission were negative. He does not have any local signs of infection today and is doing well. This site was debrided in an excisional subcutaneous manner as noted in the clinical panel. To change the site daily with [employer] Ag. There is significant improvement in the quality of the wound bed and the ulcer size is over 1 cm?. I recommend application of advanced wound healing product, epi-fix which is placental drive. The indications and anticipated healing time and management were discussed. He is amendable to proceed. Insurance authorization will be initiated. He has suspected adequate perfusion to heal and there are no signs of infection locally. He was advised to decrease edema to the limb by wearing a Tubigrip compression stocking to elevate the limb at rest. To take nutritional supplementation to maintain a proper diet to optimize healing. To keep pressure off the site by avoiding laying right on this site which she reports he is already doing. He was advised to apply Elocon topical low-dose steroid to the peripheral skin patch area that is suspected to be related to his eczema. I recommended avoiding direct application to the ulcer or melony-ulcer site. He demonstrates understanding. If lack of improvement is noted other cream such as an antifungal or moisturizing cream will be considered. A punch biopsy can also be considered for further work-up if needed. He was reassured I do not think this looks consistent with cellulitis today. To return to the wound healing center in 1 week or call sooner if he is any questions or concerns.
--- NOTE | 2019-06-12 13:23 | PN.PCM_ITS ---
(1) Diabetes mellitus with complication Status: Chronic Code(s): E11.8 - Type 2 diabetes mellitus with unspecified complications (2) Cellulitis of left lower leg Status: Resolved Code(s): L03.116 - Cellulitis of left lower limb (3) Ulcer of left lower extremity with fat layer exposed Status: Chronic Code(s): L97.922 - Non-pressure chronic ulcer of unspecified part of left lower leg with fat layer exposed (4) Lower extremity edema Status: Acute Code(s): R60.0 - Localized edema (5) Eczema Status: Chronic Code(s): L30.9 - Dermatitis, unspecified Type of Wound Date of Service: 06/12/19 Chief Complaint: Right leg History of Wound: This patient was admitted to the hospital on 05/13/2018 for a right leg infection with wound. He had subsequent abscess formation which was drained. It grew out strep pyogenes and staph epidermidis bacteria. He was placed on antibiotics and has been demonstrating improvement. He now is following up for remaining ulcer at this site and resolving cellulitis. He denies fever, chill, nausea, vomiting. His pain is resolved. He relates new skin irritation this past week that is extending to the medial malleolus. He denies itching. He is not sure this is related to his underlying eczema condition. He does have some low-dose steroid cream at home and has applied peripherally inflammation reduction. He is ready to proceed with advancing her in chronic application today. Progress of Wound: Improving quality - Physical Exam Vital Signs Temp Pulse Resp BP 97.7 F L 83 20 H 126/63 H 06/05/19 08:58 06/05/19 08:58 06/05/19 08:58 06/05/19 08:58 General: Alert, Oriented x3, Cooperative, No apparent distress Extremities: Capillary Refill Less than 3 Seconds, No Calf Tenderness, Diminished Peripheral Pulses, Edema Skin: Ulcer/ Wound - No purulence, erythema, streaking, odor, infection. His ulcer bed is granular and fibrous. Peripheral eschar and erythema have resolved. The inflammation and skin peeling has also reduced compared to last week and is overall atrophic. Wound Measurements and Assessment WC - Nurse 2 - General Ulcer CM Notes Start: 05/29/19 08:38 Freq: Status: Active Protocol: Activity Type Activity Date Activity User E-Sign Co-Sign Detail Recorded Client Recorded Date Recorded By Document 06/12/19 11:39 [id number] 06/12/19 11:41 06/12/19 11:39 Wound Center Nurse 2 [Procedure/Treatment] #1 L Post LE -Time 11:39 -Correct Patient Yes -Correct Side, Site, Position Yes -Correct Procedure Yes -Procedure Performed Yes -Type of Procedure Debridement -Clinical Debridement Subcutaneous -Post Debridement Size (cm) - Length 1.2 -Post Debridement Size (cm) - Width 1.3 -Post Debridement Size (cm) - Depth 0.2 -Total Square Cm 1.56 -Wound/Ulcer Outcome Not Healed -Ulcer Cleansing Rinsed/ Irrigated with Saline -Foul Odor after Cleansing No -Bioengineered Tissue Yes -Type of bioengineered Tissue EPIFIX -Expiration Date 11/25/23 -Product Lot Number [id number] -Percent Used 100 -Saline Lot Number [id number] -Bleeding Controlled with Pressure -Offloading No -Treatment Response Procedure Tolerated Well [See Physician Procedure note for Specifics] Pain Scale: 0-10 Numeric [Pain] -Is Patient Pain Free? Yes Musculoskeletal: No Tenderness to Palpation of Joints or Extremities, Muscle Wasting Neurological: Sensory exam intact to light touch and pain Psych/Mental Status: Normal Affect, Appropriate Debridement Note Post-Debridement Measurements/Treatment WC - Nurse 2 - General Ulcer CM Notes Start: 05/29/19 08:38 Freq: Status: Active Protocol: Activity Type Activity Date Activity User E-Sign Co-Sign Detail Recorded Client Recorded Date Recorded By Document 05/29/19 09:44 [id number] 05/29/19 09:47 Document 06/05/19 09:29 [id number] 06/05/19 09:32 Document 06/12/19 11:39 [id number] 06/12/19 11:41 05/29/19 06/05/19 06/12/19 09:44 09:29 11:39 Wound Center Nurse 2 #1 L Post LE -Time 09:45 09:31 11:39 -Correct Patient Yes Yes Yes -Correct Side, Site, Position Yes Yes Yes -Correct Procedure Yes Yes Yes -Procedure Performed Yes Yes Yes -Type of Procedure Debridement Debridement Debridement -Clinical Debridement Subcutaneous Subcutaneous Subcutaneous -Post Debridement Size (cm) - Length 0.8 1.1 1.2 -Post Debridement Size (cm) - Width 1.0 1.3 1.3 -Post Debridement Size (cm) - Depth 0.2 0.2 0.2 -Total Square Cm 0.80 1.43 1.56 -Wound/Ulcer Outcome Not Healed Not Healed Not Healed -Ulcer Cleansing Rinsed/ Rinsed/ Rinsed/ Irrigated with Irrigated with Irrigated with Saline Saline Saline -Foul Odor after Cleansing No No No -Bioengineered Tissue No No Yes -Type of bioengineered Tissue EPIFIX -Expiration Date 11/25/23 -Product Lot Number [id number] -Percent Used 100 -Saline Lot Number [id number] -Bleeding Controlled with Pressure Pressure Pressure -Offloading No No No -Treatment Response Procedure Procedure Procedure Tolerated Well Tolerated Well Tolerated Well Pain Scale: 0-10 Numeric Is Patient Pain Free? Yes Yes Yes Wound debrided: posterior leg Laterality: Left Type of Debridement: Excisional debridement Anesthesia Used: 5% Lidocaine Gel Depth: in the subcutaneous layer Percentage of wound debrided: 100 Instrument Used: #15 blade Tissue Removed: fibrous, devitalized subcutaneous, biofilm, slough Severity: Fat Layer Exposed Amount of bleeding with debridement: Mild Bleeding Controlled with: Pressure Patient tolerated procedure well Assessment/Plan Assessment: Right leg ulcer Plan: I reviewed and discussed his case. His ulcer site is healing well and his cellulitis has resolved. He is completed his course of antibiotics per infectious disease and I do not recommend additional antibiotics at this time. It is noted his previous blood cultures during his last hospital admission were negative. He does not have any local signs of infection today and is doing well. This site was debrided in an excisional subcutaneous manner as noted in the clinical panel. Advancement. Parotic epi-fix today according to standard protocol after verbal consent was obtained. He tolerated this well and this was secured in place with a wound veil and Steri-Strips. This is medically necessary. He is advised to keep this intact for 1 week. 2 at that time remove the dressing and change daily with [employer]. The indications and anticipated healing time and management were discussed. He was advised to decrease edema to the limb by wearing a Tubigrip compression stocking to elevate the limb at rest. To take nutritional supplementation to maintain a proper diet to optimize healing. To keep pressure off the site by avoiding laying right on this site which she reports he is already doing. He was advised to apply Elocon topical low-dose steroid to the peripheral skin patch area that is suspected to be related to his eczema. I recommended avoiding direct application to the ulcer or laya-ulcer site. He demonstrates understanding. If lack of improvement is noted other cream such as an antifungal or moisturizing cream will be considered. A punch biopsy can also be considered for further work-up if needed. He was reassured I do not think this looks consistent with cellulitis today. To return to the wound healing center in 2 week or call sooner if he is any questions or concerns.
== END 2019-06-25 23:59 ==
LOC: WC 11:15
PROVIDERS: Family Provider Family Medicine; PCP Family Medicine; Visit Provider Podiatrist
DX: E11.622 Type 2 diabetes mellitus with other skin ulcer (principal); L97.822 Non-pressure chronic ulcer of other part of left lower leg with fat layer exposed; R60.0 Localized edema; L30.9 Dermatitis, unspecified
CPT/HCPCS: 11042; 15271; 99213; Q4186; G0463

== ENCOUNTER 2019-07-24 13:45 | Outpatient (RCR) | payer OTHER, SELFPAY ==
[2019-06-05 08:58] VITALS: BMI 28.1
[2019-06-26 00:59] VITALS: BP 126/63; PULSE 83; RESP 20; TEMP 36.5
[2019-06-28 14:30] VITALS: BP 142/84; PULSE 96; RESP 16; TEMP 36.9; BMI 28.1
--- NOTE | 2019-06-28 15:34 | PCM.WC.PN ---
(1) Other acquired deformities of left foot Status: Acute Current Visit: Yes Code(s): M21.6X2 - Other acquired deformities of left foot (2) Ulcer of left lower extremity with fat layer exposed Status: Chronic Current Visit: Yes Code(s): L97.922 - Non-pressure chronic ulcer of unspecified part of left lower leg with fat layer exposed (3) Lower extremity edema Status: Acute Current Visit: Yes Code(s): R60.0 - Localized edema Type of Wound Date of Service: 06/28/19 Chief Complaint: Right leg History of Wound: This patient was admitted to the hospital on 05/13/2018 for a right leg infection with wound. He had subsequent abscess formation which was drained. It grew out strep pyogenes and staph epidermidis bacteria. He was placed on antibiotics and has been demonstrating improvement. He now is following up for remaining ulcer at this site and resolving cellulitis. He denies fever, chill, nausea, vomiting. His pain is resolved. He is ready to proceed with advancing her in chronic application today. He wears a shoe. Progress of Wound: Improving quality - Physical Exam Vital Signs Temp Pulse Resp BP 98.4 F 96 16 142/84 H 06/28/19 14:30 06/28/19 14:30 06/28/19 14:30 06/28/19 14:30 General: Alert, Oriented x3, Cooperative Extremities: No cyanosis, Capillary Refill Less than 3 Seconds, No Calf Tenderness, Diminished Peripheral Pulses, Edema Skin: Ulcer/ Wound - No purulence, erythema, streaking, odor, infection. There is improvement with granulation tissue noted. The peripheral skin is hairless and atrophic. There is gliding tissue deep to the skin noted with passive sagittal plane range of motion of the ankle Wound Measurements and Assessment WC - Nurse 1 - General Ulcer Measurement Start: 06/28/19 14:30 Freq: Status: Active Protocol: Activity Type Activity Date Activity User E-Sign Co-Sign Detail Recorded Client Recorded Date Recorded By Document 06/28/19 14:30 MW [id number] 06/28/19 14:39 MW 06/28/19 14:30 Wound Center Nurse 1 [Ulcer Assessment] #1 L Post LE -Combined with other wound No -Current Size (cm) - Length 1.0 -Current Size (cm) - Width 1.4 -Current Size (cm) - Depth 0.1 -Total Square Cm 1.40 -Photo Taken No -Epithelialization None Present -Tunneling No -Undermining/Tunneling No -Circular Undermining No -Exudate Amt Small -Exudate Type Serosanguineous -Wound Margin Flat & Intact -Granulation Amt None Present (0 %) -Granulation Quality N/A -Slough/Fibrin Yes -Necrosis Amt Large (67-100%) -Necrotic Tissue Type Adherent Slough -Structure Exposed N/A -Texture (Melony-wound Skin Appearance) Assessed, Localized Edema -Moisture (Melony-wound Skin Appearance No Abnormality, ) Assessed -Color (Melony-wound Skin Appearance) No Abnormality, Assessed [Edema Assessment] -Lower Limb Edema Present Yes -Left Calf (cm) 37.2 -Left Ankle (cm) 24.8 WC - Nurse 2 - General Ulcer CM Notes Start: 06/28/19 14:30 Freq: Status: Active Protocol: Activity Type Activity Date Activity User E-Sign Co-Sign Detail Recorded Client Recorded Date Recorded By Document 06/28/19 14:58 [id number] 06/28/19 15:00 06/28/19 14:58 Wound Center Nurse 2 [Procedure/Treatment] #1 L Post LE -Time 14:59 -Correct Patient Yes -Correct Side, Site, Position Yes -Correct Procedure Yes -Procedure Performed Yes -Type of Procedure Debridement -Clinical Debridement Subcutaneous -Post Debridement Size (cm) - Length 1.0 -Post Debridement Size (cm) - Width 1.5 -Post Debridement Size (cm) - Depth 0.2 -Total Square Cm 1.50 -Wound/Ulcer Outcome Not Healed -Ulcer Cleansing Rinsed/ Irrigated with Saline -Foul Odor after Cleansing No -Bioengineered Tissue Yes -Type of bioengineered Tissue EPIFIX -Expiration Date 09/25/23 -Product Lot Number [id number] -Percent Used 100 -Saline Lot Number [id number] -Bleeding Controlled with Pressure -Offloading No -Treatment Response Procedure Tolerated Well [See Physician Procedure note for Specifics] Pain Scale: 0-10 Numeric [Pain] -Is Patient Pain Free? Yes Musculoskeletal: Muscle Wasting Neurological: Sensory exam intact to light touch and pain Psych/Mental Status: Normal Affect, Appropriate Debridement Note Post-Debridement Measurements/Treatment WC - Nurse 2 - General Ulcer CM Notes Start: 06/28/19 14:30 Freq: Status: Active Protocol: Activity Type Activity Date Activity User E-Sign Co-Sign Detail Recorded Client Recorded Date Recorded By Document 06/28/19 14:58 ANTONIA [id number] 06/28/19 15:00 ANTONIA 06/28/19 14:58 Wound Center Nurse 2 #1 L Post LE -Time 14:59 -Correct Patient Yes -Correct Side, Site, Position Yes -Correct Procedure Yes -Procedure Performed Yes -Type of Procedure Debridement -Clinical Debridement Subcutaneous -Post Debridement Size (cm) - Length 1.0 -Post Debridement Size (cm) - Width 1.5 -Post Debridement Size (cm) - Depth 0.2 -Total Square Cm 1.50 -Wound/Ulcer Outcome Not Healed -Ulcer Cleansing Rinsed/ Irrigated with Saline -Foul Odor after Cleansing No -Bioengineered Tissue Yes -Type of bioengineered Tissue EPIFIX -Expiration Date 09/25/23 -Product Lot Number [id number] -Percent Used 100 -Saline Lot Number [id number] -Bleeding Controlled with Pressure -Offloading No -Treatment Response Procedure Tolerated Well Pain Scale: 0-10 Numeric Is Patient Pain Free? Yes Wound debrided: posterior lower leg Laterality: Left Type of Debridement: Excisional debridement Anesthesia Used: 5% Lidocaine Gel Depth: in the subcutaneous layer Percentage of wound debrided: 100 Instrument Used: #15 blade Tissue Removed: fibrous, devitalized subcutaneous, biofilm, slough Severity: Fat Layer Exposed Amount of bleeding with debridement: Mild Bleeding Controlled with: Pressure Patient tolerated procedure well Assessment/Plan Active Problems (Last Updated 05/10/18 @ 09:44 by Zonia Yanez) Other acquired deformities of left foot (Acute) Ulcer of left lower extremity with fat layer exposed (Chronic) Lower extremity edema (Acute) Assessment: Right leg ulcer. edema right leg. contracture right leg. walking difficulty Plan: I reviewed and discussed his case. His ulcer site is healing well and his cellulitis has resolved. He is completed his course of antibiotics per infectious disease and I do not recommend additional antibiotics at this time. It is noted his previous blood cultures during his last hospital admission were negative. He does not have any local signs of infection today and is doing well. This site was debrided in an excisional subcutaneous manner as noted in the clinical panel. Advancement. Parotic epi-fix today according to standard protocol after verbal consent was obtained. He tolerated this well and this was secured in place with a wound veil and Steri-Strips. This is medically necessary. He is advised to keep this intact for 1 week. The indications and anticipated healing time and management were discussed. He was advised to decrease edema to the limb by wearing a Tubigrip compression stocking to elevate the limb at rest. To take nutritional supplementation to maintain a proper diet to optimize healing. To keep pressure off the site by avoiding laying right on this site which she reports he is already doing. I also recommend reducing tension to the site by mobilizing the ankle motion. I recommend a cam walker boot in order was provided today. He was advised to get fitted for this at the [facility] center. To return to the wound healing center in 1 week or call sooner if he is any questions or concerns.
[2019-07-03 13:51] VITALS: RESP 16; TEMP 35.9; BMI 28.1
--- NOTE | 2019-07-03 15:55 | PN.PCM_ITS ---
(1) Other acquired deformities of left foot Status: Acute Current Visit: Yes Code(s): M21.6X2 - Other acquired deformities of left foot (2) Ulcer of left lower extremity with fat layer exposed Status: Chronic Current Visit: Yes Code(s): L97.922 - Non-pressure chronic ulcer of unspecified part of left lower leg with fat layer exposed (3) Lower extremity edema Status: Acute Current Visit: Yes Code(s): R60.0 - Localized edema Type of Wound Date of Service: 07/03/19 Chief Complaint: Right leg History of Wound: This patient was admitted to the hospital on 05/13/2018 for a right leg infection with wound. He had subsequent abscess formation which was drained. It grew out strep pyogenes and staph epidermidis bacteria. He was placed on antibiotics and has been demonstrating improvement. He now is followi ng up for remaining ulcer at this site and resolving cellulitis. He denies fever, chill, nausea, vomiting. His pain is resolved. He is ready to proceed with advancing her in chronic application today. He wears a cam walker that was fitted and dispensed yesterday at [facility]. Progress of Wound: Improving quality - Physical Exam Vital Signs Temp Pulse Resp BP 96.6 F L 96 16 142/84 H 07/03/19 13:51 06/28/19 14:30 07/03/19 13:51 06/28/19 14:30 General: Alert, Oriented x3, Cooperative, No apparent distress Extremities: No cyanosis, Capillary Refill Less than 3 Seconds, No Calf Tenderness, Diminished Peripheral Pulses, Edema Skin: Ulcer/ Wound - No purulence, erythema, streaking, odor, infection. Peripheral skin is hairless and atrophic decreased ulcer mobilization noted with passive range of motion of the ankle Wound Measurements and Assessment WC - Nurse 1 - General Ulcer Measurement Start: 06/28/19 14:30 Freq: Status: Active Protocol: Activity Type Activity Date Activity User E-Sign Co-Sign Detail Recorded Client Recorded Date Recorded By Document 07/03/19 13:51 [facility] [id number] 07/03/19 14:01 [facility] 07/03/19 13:51 Wound Center Nurse 1 [Ulcer Assessment] #1 L Post LE -Combined with other wound No -Current Size (cm) - Length 0.6 -Current Size (cm) - Width 1.5 -Current Size (cm) - Depth 0.3 -Total Square Cm 0.90 -Photo Taken No -Epithelialization None Present -Tunneling No -Undermining/Tunneling No -Circular Undermining No -Exudate Amt Small -Exudate Type Serosanguineous -Wound Margin Thickened & Rolled Under -Granulation Amt None Present (0 %) -Necrosis Amt Large (67-100%) -Necrotic Tissue Type Adherent Slough -Texture (Melony-wound Skin Appearance) Assessed, Excoriation, Scarring,Rash -Moisture (Melony-wound Skin Appearance Assessed ) -Color (Melony-wound Skin Appearance) Assessed, Erythema -Temperature (Melony-wound Skin No Abnormality Appearance) (Pt Warm) -Tenderness on Palpation (Mleony-wound No Skin Appearance) -Ulcer Cleansing soapy water -Foul Odor after Cleansing No -Anesthetic Used 5% Lidocaine Gel [Edema Assessment] -Lower Limb Edema Present Yes -Left Calf (cm) 35.9 -Left Ankle (cm) 23.3 WC - Nurse 2 - General Ulcer CM Notes Start: 06/28/19 14:30 Freq: Status: Active Protocol: Activity Type Activity Date Activity User E-Sign Co-Sign Detail Recorded Client Recorded Date Recorded By Document 07/03/19 14:12 ANTONIA [id number] 07/03/19 14:13 ANTONIA 07/03/19 14:12 Wound Center Nurse 2 [Procedure/Treatment] #1 L Post LE -Time 14:12 -Correct Patient Yes -Correct Side, Site, Position Yes -Correct Procedure Yes -Procedure Performed Yes -Type of Procedure Debridement -Clinical Debridement Subcutaneous -Post Debridement Size (cm) - Length 0.6 -Post Debridement Size (cm) - Width 1.6 -Post Debridement Size (cm) - Depth 0.3 -Total Square Cm 0.96 -Wound/Ulcer Outcome Not Healed -Ulcer Cleansing Rinsed/ Irrigated with Saline -Foul Odor after Cleansing No -Bioengineered Tissue Yes -Type of bioengineered Tissue EPIFIX -Expiration Date 09/25/23 -Product Lot Number [id number] -Percent Used 100 -Saline Lot Number [id number] -Bleeding Controlled with Pressure -Offloading Yes -Type of Offloading Camwalker -Treatment Response Procedure Tolerated Well [See Physician Procedure note for Specifics] Pain Scale: 0-10 Numeric [Pain] -Is Patient Pain Free? Yes Musculoskeletal: No Tenderness to Palpation of Joints or Extremities, Muscle Wasting Neurological: - - Lack of normal epicritic sensation light touch Psych/Mental Status: Normal Affect, Appropriate Debridement Note Post-Debridement Measurements/Treatment WC - Nurse 2 - General Ulcer CM Notes Start: 06/28/19 14:30 Freq: Status: Active Protocol: Activity Type Activity Date Activity User E-Sign Co-Sign Detail Recorded Client Recorded Date Recorded By Document 06/28/19 14:58 [id number] 06/28/19 15:00 Document 07/03/19 14:12 [id number] 07/03/19 14:13 06/28/19 07/03/19 14:58 14:12 Wound Center Nurse 2 #1 L Post LE -Time 14:59 14:12 -Correct Patient Yes Yes -Correct Side, Site, Position Yes Yes -Correct Procedure Yes Yes -Procedure Performed Yes Yes -Type of Procedure Debridement Debridement -Clinical Debridement Subcutaneous Subcutaneous -Post Debridement Size (cm) - Length 1.0 0.6 -Post Debridement Size (cm) - Width 1.5 1.6 -Post Debridement Size (cm) - Depth 0.2 0.3 -Total Square Cm 1.50 0.96 -Wound/Ulcer Outcome Not Healed Not Healed -Ulcer Cleansing Rinsed/ Rinsed/ Irrigated with Irrigated with Saline Saline -Foul Odor after Cleansing No No -Bioengineered Tissue Yes Yes -Type of bioengineered Tissue EPIFIX EPIFIX -Expiration Date 09/25/23 09/25/23 -Product Lot Number [id number] -Percent Used 100 100 -Saline Lot Number [id number] -Bleeding Controlled with Pressure Pressure -Offloading No Yes -Type of Offloading Camwalker -Treatment Response Procedure Procedure Tolerated Well Tolerated Well Pain Scale: 0-10 Numeric Is Patient Pain Free? Yes Yes Wound debrided: posterior leg Laterality: Left Type of Debridement: Excisional debridement Anesthesia Used: 5% Lidocaine Gel Depth: in the subcutaneous layer Percentage of wound debrided: 100 Instrument Used: #15 blade Tissue Removed: fibrous, devitalized subcutaneous, biofilm, slough Severity: Fat Layer Exposed Amount of bleeding with debridement: Mild Bleeding Controlled with: Pressure Patient tolerated procedure well Assessment/Plan Active Problems (Last Updated 05/10/18 @ 09:44 by Zonia Yanez) Other acquired deformities of left foot (Acute) Ulcer of left lower extremity with fat layer exposed (Chronic) Lower extremity edema (Acute) Assessment: Right leg ulcer. edema right leg. contracture right leg. walking difficulty Plan: I reviewed and discussed his case. His ulcer site is healing well and his cellulitis has resolved. He is completed his course of antibiotics per infectious disease and I do not recommend additional antibiotics at this time. It is noted his previous blood cultures during his last hospital admission were negative. He does not have any local signs of infection today and is doing well. This site was debrided in an excisional subcutaneous manner as noted in the clinical panel. Advancement. Parotic epi-fix today according to standard protocol after verbal consent was obtained. He tolerated this well and this was secured in place with a wound veil and Steri-Strips. This is medically necessary. He is advised to keep this intact for 1 week. The indications and anticipated healing time and management were discussed. He was advised to decrease edema to the limb by wearing a Tubigrip compression stocking to elevate the limb at rest. To take nutritional supplementation to maintain a proper diet to optimize healing. To keep pressure off the site by avoiding laying right on this site which she reports he is already doing. I also recommend reducing tension to the site by mobilizing the ankle motion. I recommend a cam walker boot. He was fitted with this yesterday and has been doing well so far. We reviewed proper use. To return to the wound healing center in 1 week or call sooner if he is any questions or concerns.
[2019-07-10 13:43] VITALS: BP 131/67; PULSE 94; RESP 16; TEMP 36.7; BMI 28.1
--- NOTE | 2019-07-10 14:38 | PCM.WC.PN ---
(1) Other acquired deformities of left foot Status: Acute Code(s): M21.6X2 - Other acquired deformities of left foot (2) Ulcer of left lower extremity with fat layer exposed Status: Chronic Code(s): L97.922 - Non-pressure chronic ulcer of unspecified part of left lower leg with fat layer exposed (3) Lower extremity edema Status: Acute Code(s): R60.0 - Localized edema Type of Wound Date of Service: 07/10/19 Chief Complaint: Right leg History of Wound: This patient was admitted to the hospital on 05/13/2018 for a right leg infection with wound. He had subsequent abscess formation which was drained. It grew out strep pyogenes and staph epidermidis bacteria. He was placed on antibiotics and has been demonstrating improvement. He now is following up for remaining ulcer at this site and resolving cellulitis. He denies fever, chill, nausea, vomiting. His pain is resolved. He is ready to proceed with advancing her in chronic application today. He wears a cam walker as advised. Progress of Wound: Improving quality - Physical Exam Vital Signs Temp Pulse Resp BP 98.0 F 94 16 131/67 H 07/10/19 13:43 07/10/19 13:43 07/10/19 13:43 07/10/19 13:43 General: Alert, Oriented x3, Cooperative, No apparent distress Extremities: No cyanosis, Capillary Refill Less than 3 Seconds, No Calf Tenderness, Diminished Peripheral Pulses, Edema Skin: Ulcer/ Wound - No purulence, erythema, streaking, odor, infection. No visualized tendon. The laya-ulcer site inflammation is also reduced and there is no skin peeling Wound Measurements and Assessment WC - Nurse 1 - General Ulcer Measurement Start: 06/28/19 14:30 Freq: Status: Active Protocol: Activity Type Activity Date Activity User E-Sign Co-Sign Detail Recorded Client Recorded Date Recorded By Document 07/10/19 13:43 DV [id number] 07/10/19 13:54 DV 07/10/19 13:43 Wound Center Nurse 1 [Ulcer Assessment] #1 L Post LE -Combined with other wound No -Current Size (cm) - Length 0.5 -Current Size (cm) - Width 1.2 -Current Size (cm) - Depth 0.3 -Total Square Cm 0.60 -Photo Taken No -Epithelialization None Present -Tunneling No -Undermining/Tunneling No -Circular Undermining No -Classification - Thickness Full Thickness without Exposed Support Structure -Exudate Amt Small -Exudate Type Serosanguineous -Wound Margin Epibole -Granulation Amt Small (1-33%) -Granulation Quality Pale,Eugenio Saenz -Slough/Fibrin Yes -Necrosis Amt Large (67-100%) -Necrotic Tissue Type Adherent Slough -Structure Exposed None/Limited to Skin Breakdown -Texture (Laya-wound Skin Appearance) Assessed, Localized Edema ,Scarring -Moisture (Laya-wound Skin Appearance Assessed, ) Weeping -Color (Laya-wound Skin Appearance) Assessed, Mottled -Temperature (Laya-wound Skin No Abnormality Appearance) (Pt Warm) -Tenderness on Palpation (Laya-wound No Skin Appearance) -Ulcer Cleansing Rinsed/ Irrigated with Saline -Foul Odor after Cleansing No -Anesthetic Used 4% Lidocaine Solution [Edema Assessment] -Left Calf (cm) 36.0 -Left Ankle (cm) 24.2 WC - Nurse 2 - General Ulcer CM Notes Start: 06/28/19 14:30 Freq: Status: Active Protocol: Activity Type Activity Date Activity User E-Sign Co-Sign Detail Recorded Client Recorded Date Recorded By Document 07/10/19 14:09 ANTONIA [id number] 07/10/19 14:13 ANTONIA 07/10/19 14:09 Wound Center Nurse 2 [Procedure/Treatment] #1 L Post LE -Time 14:11 -Correct Patient Yes -Correct Side, Site, Position Yes -Correct Procedure Yes -Procedure Performed Yes -Type of Procedure Debridement -Clinical Debridement Subcutaneous -Post Debridement Size (cm) - Length 0.5 -Post Debridement Size (cm) - Width 1.3 -Post Debridement Size (cm) - Depth 0.3 -Total Square Cm 0.65 -Wound/Ulcer Outcome Not Healed -Ulcer Cleansing Rinsed/ Irrigated with Saline -Foul Odor after Cleansing No -Bioengineered Tissue Yes -Type of bioengineered Tissue EPIFIX -Expiration Date 03/26/24 -Product Lot Number [id number] -Percent Used 100 -Saline Lot Number [id number] -Bleeding Controlled with Pressure -Offloading No -Treatment Response Procedure Tolerated Well [See Physician Procedure note for Specifics] Pain Scale: 0-10 Numeric [Pain] -Is Patient Pain Free? Yes Musculoskeletal: No Tenderness to Palpation of Joints or Extremities, Muscle Wasting Neurological: Sensory exam intact to light touch and pain Psych/Mental Status: Normal Affect, Appropriate Debridement Note Post-Debridement Measurements/Treatment WC - Nurse 2 - General Ulcer CM Notes Start: 06/28/19 14:30 Freq: Status: Active Protocol: Activity Type Activity Date Activity User E-Sign Co-Sign Detail Recorded Client Recorded Date Recorded By Document 06/28/19 14:58 [id number] 06/28/19 15:00 Document 07/03/19 14:12 [id number] 07/03/19 14:13 Document 07/10/19 14:09 [id number] 07/10/19 14:13 06/28/19 07/03/19 07/10/19 14:58 14:12 14:09 Wound Center Nurse 2 #1 L Post LE -Time 14:59 14:12 14:11 -Correct Patient Yes Yes Yes -Correct Side, Site, Position Yes Yes Yes -Correct Procedure Yes Yes Yes -Procedure Performed Yes Yes Yes -Type of Procedure Debridement Debridement Debridement -Clinical Debridement Subcutaneous Subcutaneous Subcutaneous -Post Debridement Size (cm) - Length 1.0 0.6 0.5 -Post Debridement Size (cm) - Width 1.5 1.6 1.3 -Post Debridement Size (cm) - Depth 0.2 0.3 0.3 -Total Square Cm 1.50 0.96 0.65 -Wound/Ulcer Outcome Not Healed Not Healed Not Healed -Ulcer Cleansing Rinsed/ Rinsed/ Rinsed/ Irrigated with Irrigated with Irrigated with Saline Saline Saline -Foul Odor after Cleansing No No No -Bioengineered Tissue Yes Yes Yes -Type of bioengineered Tissue EPIFIX EPIFIX EPIFIX -Expiration Date 09/25/23 09/25/23 03/26/24 -Product Lot Number [id number] -Percent Used 100 100 100 -Saline Lot Number [id number] -Bleeding Controlled with Pressure Pressure Pressure -Offloading No Yes No -Type of Offloading Camwalker -Treatment Response Procedure Procedure Procedure Tolerated Well Tolerated Well Tolerated Well Pain Scale: 0-10 Numeric Is Patient Pain Free? Yes Yes Yes Wound debrided: posterior leg Laterality: Left Type of Debridement: Excisional debridement Anesthesia Used: 5% Lidocaine Gel Depth: in the subcutaneous layer Percentage of wound debrided: 100 Instrument Used: #15 blade Tissue Removed: fibrous, devitalized subcutaneous, biofilm, slough Severity: Fat Layer Exposed Amount of bleeding with debridement: Mild Bleeding Controlled with: Pressure Patient tolerated procedure well Assessment/Plan Assessment: Right leg ulcer. edema right leg. contracture right leg. walking difficulty Plan: I reviewed and discussed his case. His ulcer site is healing well and his cellulitis has resolved. He is completed his course of antibiotics per infectious disease and I do not recommend additional antibiotics at this time. It is noted his previous blood cultures during his last hospital admission were negative. He does not have any local signs of infection today and is doing well. This site was debrided in an excisional subcutaneous manner as noted in the clinical panel. Advancement. placental derived wound care product epi-fix was applied today according to standard protocol after verbal consent was obtained. He tolerated this well and this was secured in place with a wound veil and Steri-Strips. This is medically necessary. He is advised to keep this intact for 1 week. The indications and anticipated healing time and management were discussed. He was advised to decrease edema to the limb by wearing a Tubigrip compression stocking to elevate the limb at rest. To take nutritional supplementation to maintain a proper diet to optimize healing. To keep pressure off the site by avoiding laying right on this site which she reports he is already doing. I also recommend reducing tension to the site by mobilizing the ankle motion. I recommend a cam walker boot. He was fitted with this yesterday and has been doing well so far. We reviewed proper use. We mobilization of the tissue with delayed primary closure also be considered next week if the tissue quality continues to improve. We discussed the indications for this minor an office procedure next week when the necessary supplies are available. To return to the wound healing center in 1 week or call sooner if he is any questions or concerns.
[2019-07-17 13:47] VITALS: BP 116/60; PULSE 99; RESP 18; TEMP 36.3; BMI 28.1
--- NOTE | 2019-07-17 15:29 | PCM.WC.PN ---
(1) Other acquired deformities of left foot Status: Acute Code(s): M21.6X2 - Other acquired deformities of left foot (2) Ulcer of left lower extremity with fat layer exposed Status: Chronic Code(s): L97.922 - Non-pressure chronic ulcer of unspecified part of left lower leg with fat layer exposed (3) Lower extremity edema Status: Acute Code(s): R60.0 - Localized edema Type of Wound Date of Service: 07/17/19 Chief Complaint: Left leg History of Wound: This patient was admitted to the hospital on 05/13/2018 for a right leg infection with wound. He had subsequent abscess formation which was drained. It grew out strep pyogenes and staph epidermidis bacteria. He was placed on antibiotics and has been demonstrating improvement. He now is following up for remaining ulcer at this site and resolving cellulitis. He denies fever, chill, nausea, vomiting. His pain is resolved. He is ready to proceed with advancing her in chronic application today. He wears a cam walker as advised. Progress of Wound: Improving quality - Physical Exam Vital Signs Temp Pulse Resp BP 97.4 F L 99 18 116/60 07/17/19 13:47 07/17/19 13:47 07/17/19 13:47 07/17/19 13:47 General: Alert, Oriented x3, Cooperative, No apparent distress Extremities: No cyanosis, Capillary Refill Less than 3 Seconds, No Calf Tenderness, Diminished Peripheral Pulses, Edema Skin: Ulcer/ Wound - No purulence, erythema, streaking, odor, infection Wound Measurements and Assessment WC - Nurse 1 - General Ulcer Measurement Start: 06/28/19 14:30 Freq: Status: Active Protocol: Activity Type Activity Date Activity User E-Sign Co-Sign Detail Recorded Client Recorded Date Recorded By Document 07/17/19 13:47 DL [id number] 07/17/19 13:56 DL 07/17/19 13:47 Wound Center Nurse 1 [Ulcer Assessment] #1 L Post LE -Current Size (cm) - Length 0.6 -Current Size (cm) - Width 0.9 -Current Size (cm) - Depth 0.2 -Total Square Cm 0.54 -Photo Taken No -Undermining/Tunneling Starts (O' 10 clock) -Undermining/Tunneling Ends (O'clock) 5 -Maximum Distance (cm) 0.2 -Exudate Amt Small -Exudate Type Serosanguineous -Wound Margin Thickened -Granulation Amt None Present (0 %) -Necrosis Amt Large (67-100%) -Necrotic Tissue Type Eschar -Structure Exposed N/A -Texture (Melony-wound Skin Appearance) Scarring -Moisture (Melony-wound Skin Appearance Maceration ) -Color (Melony-wound Skin Appearance) Hemosiderin Staining,Rubor -Temperature (Melony-wound Skin No Abnormality Appearance) (Pt Warm) -Tenderness on Palpation (Melony-wound No Skin Appearance) -Ulcer Cleansing Wound Cleanser -Foul Odor after Cleansing No -Anesthetic Used 5% Lidocaine Gel [Edema Assessment] -Left Calf (cm) 35.5 -Left Ankle (cm) 24 WC - Nurse 2 - General Ulcer CM Notes Start: 06/28/19 14:30 Freq: Status: Active Protocol: Activity Type Activity Date Activity User E-Sign Co-Sign Detail Recorded Client Recorded Date Recorded By Document 07/17/19 14:32 ANTONIA [id number] 07/17/19 14:34 ANTONIA 07/17/19 14:32 Wound Center Nurse 2 [Procedure/Treatment] #1 L Post LE -Time 14:33 -Correct Patient Yes -Correct Side, Site, Position Yes -Correct Procedure Yes -Procedure Performed Yes -Type of Procedure Debridement -Clinical Debridement Subcutaneous -Post Debridement Size (cm) - Length 0.6 -Post Debridement Size (cm) - Width 1.0 -Post Debridement Size (cm) - Depth 0.2 -Total Square Cm 0.60 -Wound/Ulcer Outcome Not Healed -Ulcer Cleansing Rinsed/ Irrigated with Saline -Foul Odor after Cleansing No -Bioengineered Tissue No -Bleeding Controlled with Pressure -Offloading No -Treatment Response Procedure Tolerated Well [See Physician Procedure note for Specifics] Pain Scale: 0-10 Numeric [Pain] -Is Patient Pain Free? Yes Musculoskeletal: No Tenderness to Palpation of Joints or Extremities, Muscle Wasting Neurological: - - Lack of full sensation to light touch however he does have discomfort with ulcer debridement and manipulation of the leg Psych/Mental Status: Normal Affect, Appropriate Debridement Note Post-Debridement Measurements/Treatment WC - Nurse 2 - General Ulcer CM Notes Start: 06/28/19 14:30 Freq: Status: Active Protocol: Activity Type Activity Date Activity User E-Sign Co-Sign Detail Recorded Client Recorded Date Recorded By Document 06/28/19 14:58 [id number] 06/28/19 15:00 Document 07/03/19 14:12 [id number] 07/03/19 14:13 Document 07/10/19 14:09 [id number] 07/10/19 14:13 Document 07/17/19 14:32 [id number] 07/17/19 14:34 06/28/19 07/03/19 07/10/19 14:58 14:12 14:09 Wound Center Nurse 2 #1 L Post LE -Time 14:59 14:12 14:11 -Correct Patient Yes Yes Yes -Correct Side, Site, Position Yes Yes Yes -Correct Procedure Yes Yes Yes -Procedure Performed Yes Yes Yes -Type of Procedure Debridement Debridement Debridement -Clinical Debridement Subcutaneous Subcutaneous Subcutaneous -Post Debridement Size (cm) - Length 1.0 0.6 0.5 -Post Debridement Size (cm) - Width 1.5 1.6 1.3 -Post Debridement Size (cm) - Depth 0.2 0.3 0.3 -Total Square Cm 1.50 0.96 0.65 -Wound/Ulcer Outcome Not Healed Not Healed Not Healed -Ulcer Cleansing Rinsed/ Rinsed/ Rinsed/ Irrigated with Irrigated with Irrigated with Saline Saline Saline -Foul Odor after Cleansing No No No -Bioengineered Tissue Yes Yes Yes -Type of bioengineered Tissue EPIFIX EPIFIX EPIFIX -Expiration Date 09/25/23 09/25/23 03/26/24 -Product Lot Number [id number] -Percent Used 100 100 100 -Saline Lot Number [id number] -Bleeding Controlled with Pressure Pressure Pressure -Offloading No Yes No -Type of Offloading Camwalker -Treatment Response Procedure Procedure Procedure Tolerated Well Tolerated Well Tolerated Well Pain Scale: 0-10 Numeric Is Patient Pain Free? Yes Yes Yes 07/17/19 14:32 Wound Center Nurse 2 #1 L Post LE -Time 14:33 -Correct Patient Yes -Correct Side, Site, Position Yes -Correct Procedure Yes -Procedure Performed Yes -Type of Procedure Debridement -Clinical Debridement Subcutaneous -Post Debridement Size (cm) - Length 0.6 -Post Debridement Size (cm) - Width 1.0 -Post Debridement Size (cm) - Depth 0.2 -Total Square Cm 0.60 -Wound/Ulcer Outcome Not Healed -Ulcer Cleansing Rinsed/ Irrigated with Saline -Foul Odor after Cleansing No -Bioengineered Tissue No -Type of bioengineered Tissue -Expiration Date -Product Lot Number -Percent Used -Saline Lot Number -Bleeding Controlled with Pressure -Offloading No -Type of Offloading -Treatment Response Procedure Tolerated Well Pain Scale: 0-10 Numeric Is Patient Pain Free? Yes Wound debrided: posterior leg Laterality: Left Type of Debridement: Excisional debridement, - - Mobilization delayed closure with 3-0 nylon utilizing horizontal and simple suture technique Anesthesia Used: 5% Lidocaine Gel, - - 5 cc of 1% lidocaine plain administered via injectable format in a subdermal manner to the left leg Depth: in the subcutaneous layer Percentage of wound debrided: 100 Instrument Used: #15 blade, Forceps, - - Hemostat Tissue Removed: fibrous, devitalized subcutaneous, biofilm, slough Severity: Fat Layer Exposed Amount of bleeding with debridement: Mild Bleeding Controlled with: Pressure Patient tolerated procedure well Delayed primary closure after debridement was performed today with 3-0 nylon suture. Verbal consent was obtained. The indications, benefits, risk, anticipated healing time management were discussed. He understands elects to proceed forward with this. He tolerated this well. Pressure was applied to maintain hemostasis. Assessment/Plan Assessment: Left leg ulcer. edema left leg. contracture left leg. walking difficulty Plan: I reviewed and discussed his case. His ulcer site is healing well and his cellulitis has resolved. He is completed his course of antibiotics per infectious disease and I do not recommend additional antibiotics at this time. It is noted his previous blood cultures during his last hospital admission were negative. He does not have any local signs of infection today and is doing well. This site was debrided in an excisional subcutaneous manner as noted in the clinical panel. He is amenable to proceed forward with the mobilization debridement and delayed primary closure. This was performed he tolerated this well. A dry gauze bandage was applied and he was advised to keep this intact for 1 week. The indications and anticipated healing time and management were discussed. He was advised to decrease edema to the limb by wearing a Tubigrip compression stocking to elevate the limb at rest. To take nutritional supplementation to maintain a proper diet to optimize healing. To keep pressure off the site by avoiding laying right on this site which she reports he is already doing. I also recommend reducing tension to the site by mobilizing the ankle motion. I recommend a cam walker boot. He was fitted with this yesterday and has been doing well so far. We reviewed proper use. We mobilization of the tissue with delayed primary closure also be considered next week if the tissue quality continues to improve. We discussed the indications for this minor an office procedure next week when the necessary supplies are available. To return to the wound healing center in 1 week or call sooner if he is any questions or concerns.
[2019-07-24 13:51] VITALS: BP 134/75; PULSE 84; RESP 18; TEMP 36.6; BMI 28.1
--- NOTE | 2019-07-24 13:58 | WC ---
sutures intact on left posterior LE
--- NOTE | 2019-07-24 14:21 | PN.PCM_ITS ---
(1) Ulcer of left lower extremity with fat layer exposed Status: Chronic Code(s): L97.922 - Non-pressure chronic ulcer of unspecified part of left lower leg with fat layer exposed (2) Other acquired deformities of left foot Status: Acute Code(s): M21.6X2 - Other acquired deformities of left foot (3) Lower extremity edema Status: Acute Code(s): R60.0 - Localized edema (4) Dermatitis of lower extremity Status: Chronic Code(s): L30.9 - Dermatitis, unspecified (5) Xerosis cutis Status: Chronic Code(s): L85.3 - Xerosis cutis Type of Wound Date of Service: 07/24/19 Chief Complaint: Left leg History of Wound: This patient was admitted to the hospital on 05/13/2018 for a right leg infection with wound. He had subsequent abscess formation which was drained. It grew out strep pyogenes and staph epidermidis bacteria. He was placed on antibiotics and has been demonstrating improvement. He now is following up for remaining ulcer at this site and resolving cellulitis. He denies fever, chill, nausea, vomiting. His pain is resolved. He had a delayed primary closure performed last week and this is still intact. He wears a cam walker as advised. Progress of Wound: Stable - Physical Exam Vital Signs Temp Pulse Resp BP 98 F 84 18 134/75 H 07/24/19 13:51 07/24/19 13:51 07/24/19 13:51 07/24/19 13:51 General: Alert, Oriented x3, Cooperative, No apparent distress Extremities: No cyanosis, Capillary Refill Less than 3 Seconds, No Calf Tenderness, Diminished Peripheral Pulses, Edema Skin: Ulcer/ Wound - No purulence, erythema, streaking, odor, infection. The recent repair site is well approximated and aligned to the lateral half. The medial half has dehisced and there is no tissue gliding noted deep to this area with passive motion of the ankle. This was left intact. Wound Measurements and Assessment WC - Nurse 1 - General Ulcer Measurement Start: 06/28/19 14:30 Freq: Status: Active Protocol: Activity Type Activity Date Activity User E-Sign Co-Sign Detail Recorded Client Recorded Date Recorded By Document 07/24/19 13:51 RB [id number] 07/24/19 14:00 RB 07/24/19 13:51 Wound Center Nurse 1 [Ulcer Assessment] #1 L Post LE -Combined with other wound No -Current Size (cm) - Length 0.1 -Current Size (cm) - Width 0.1 -Current Size (cm) - Depth 0.1 -Total Square Cm 0.01 -Tunneling No -Undermining/Tunneling No -Circular Undermining No -Exudate Amt Small -Exudate Type Serosanguineous -Wound Margin Flat & Intact -Granulation Amt Large (67-100%) -Granulation Quality Rice Tracts -Slough/Fibrin Yes -Necrosis Amt Small (1-33%) -Necrotic Tissue Type Adherent Slough -Structure Exposed N/A -Texture (Melony-wound Skin Appearance) Assessed -Moisture (Melony-wound Skin Appearance Assessed ) -Color (Melony-wound Skin Appearance) Assessed, Erythema -Temperature (Melony-wound Skin No Abnormality Appearance) (Pt Warm) -Tenderness on Palpation (Melony-wound No Skin Appearance) -Ulcer Cleansing Wound Cleanser -Foul Odor after Cleansing No [Edema Assessment] -Lower Limb Edema Present Yes -Left Calf (cm) 37.3 -Left Ankle (cm) 24.3 07/24/19 13:58 Wound Center by Claudia Valenzuela sutures intact on left posterior LE Initialized on 07/24/19 13:58 - END OF NOTE WC - Nurse 2 - General Ulcer CM Notes Start: 06/28/19 14:30 Freq: Status: Active Protocol: Activity Type Activity Date Activity User E-Sign Co-Sign Detail Recorded Client Recorded Date Recorded By Document 07/24/19 14:13 ANTONIA [id number] 07/24/19 14:13 ANTONIA 07/24/19 14:13 Wound Center Nurse 2 [Procedure/Treatment] #1 L Post LE -Correct Patient No -Correct Side, Site, Position No -Correct Procedure No -Procedure Performed No -Wound/Ulcer Outcome Not Healed [See Physician Procedure note for Specifics] Pain Scale: 0-10 Numeric [Pain] -Is Patient Pain Free? Yes Musculoskeletal: No Tenderness to Palpation of Joints or Extremities, Muscle W asting Neurological: Sensory exam intact to light touch and pain Psych/Mental Status: Normal Affect, Appropriate Debridement Note Post-Debridement Measurements/Treatment WC - Nurse 2 - General Ulcer CM Notes Start: 06/28/19 14:30 Freq: Status: Active Protocol: Activity Type Activity Date Activity User E-Sign Co-Sign Detail Recorded Client Recorded Date Recorded By Document 06/28/19 14:58 [id number] 06/28/19 15:00 Document 07/03/19 14:12 [id number] 07/03/19 14:13 Document 07/10/19 14:09 [id number] 07/10/19 14:13 Document 07/17/19 14:32 [id number] 07/17/19 14:34 Document 07/24/19 14:13 [id number] 07/24/19 14:13 06/28/19 07/03/19 07/10/19 14:58 14:12 14:09 Wound Center Nurse 2 #1 L Post LE -Time 14:59 14:12 14:11 -Correct Patient Yes Yes Yes -Correct Side, Site, Position Yes Yes Yes -Correct Procedure Yes Yes Yes -Procedure Performed Yes Yes Yes -Type of Procedure Debridement Debridement Debridement -Clinical Debridement Subcutaneous Subcutaneous Subcutaneous -Post Debridement Size (cm) - Length 1.0 0.6 0.5 -Post Debridement Size (cm) - Width 1.5 1.6 1.3 -Post Debridement Size (cm) - Depth 0.2 0.3 0.3 -Total Square Cm 1.50 0.96 0.65 -Wound/Ulcer Outcome Not Healed Not Healed Not Healed -Ulcer Cleansing Rinsed/ Rinsed/ Rinsed/ Irrigated with Irrigated with Irrigated with Saline Saline Saline -Foul Odor after Cleansing No No No -Bioengineered Tissue Yes Yes Yes -Type of bioengineered Tissue EPIFIX EPIFIX EPIFIX -Expiration Date 09/25/23 09/25/23 03/26/24 -Product Lot Number [id number] -Percent Used 100 100 100 -Saline Lot Number [id number] -Bleeding Controlled with Pressure Pressure Pressure -Offloading No Yes No -Type of Offloading Camwalker -Treatment Response Procedure Procedure Procedure Tolerated Well Tolerated Well Tolerated Well Pain Scale: 0-10 Numeric Is Patient Pain Free? Yes Yes Yes 07/17/19 07/24/19 14:32 14:13 Wound Center Nurse 2 #1 L Post LE -Time 14:33 -Correct Patient Yes No -Correct Side, Site, Position Yes No -Correct Procedure Yes No -Procedure Performed Yes No -Type of Procedure Debridement -Clinical Debridement Subcutaneous -Post Debridement Size (cm) - Length 0.6 -Post Debridement Size (cm) - Width 1.0 -Post Debridement Size (cm) - Depth 0.2 -Total Square Cm 0.60 -Wound/Ulcer Outcome Not Healed Not Healed -Ulcer Cleansing Rinsed/ Irrigated with Saline -Foul Odor after Cleansing No -Bioengineered Tissue No -Type of bioengineered Tissue -Expiration Date -Product Lot Number -Percent Used -Saline Lot Number -Bleeding Controlled with Pressure -Offloading No -Type of Offloading -Treatment Response Procedure Tolerated Well Pain Scale: 0-10 Numeric Is Patient Pain Free? Yes Yes No debridement was completed today Assessment/Plan Assessment: Left leg ulcer. edema left leg. contracture left leg. walking difficulty Plan: I reviewed and discussed his case. His ulcer site is healing well and his cellulitis has resolved. He has completed his course of antibiotics per in fectious disease and I do not recommend additional antibiotics at this time. It is noted his previous blood cultures during his last hospital admission were negative. He does not have any local signs of infection today and is doing well. This site was debrided in an excisional subcutaneous manner as noted in the clinical panel. He is amenable to proceed forward with the mobilization, debridement, and delayed primary closure last week. This was performed and he tolerated this well. A dry gauze bandage was applied and he was advised to keep this intact for 1 week. The indications and anticipated healing time and management were discussed. He was advised to decrease edema to the limb by wearing a Tubigrip compression stocking to elevate the limb at rest. To take nutritional supplementation to maintain a proper diet to optimize healing. To keep pressure off the site by avoiding laying right on this site which she reports he is already doing. I also recommend reducing tension to the site by mobilizing the ankle motion. I recommend a cam walker boot. He was fitted with this yesterday and has been doing well so far. We reviewed proper use. We mobilization of the tissue with delayed primary closure also be considered next week if the tissue quality continues to improve. To return to the wound healing center in 1 week or call sooner if he is any questions or concerns.
== END 2019-07-26 23:59 ==
LOC: WC 13:45
PROVIDERS: Family Provider Family Medicine; PCP Family Medicine; Visit Provider Podiatrist
DX: L97.822 Non-pressure chronic ulcer of other part of left lower leg with fat layer exposed (principal); R60.0 Localized edema; R26.2 Difficulty in walking, not elsewhere classified; M21.6X2 Other acquired deformities of left foot; L85.3 Xerosis cutis
CPT/HCPCS: 11042; 15271; 99213; Q4186; G0463

== ENCOUNTER 2019-08-14 14:00 | Outpatient (RCR) | payer OTHER, SELFPAY ==
[2019-07-27 00:53] VITALS: BP 134/75; PULSE 84; RESP 18; TEMP 36.6
[2019-07-31 13:47] VITALS: BP 145/74; PULSE 92; RESP 16; TEMP 36.2; BMI 28.1
--- NOTE | 2019-07-31 14:58 | PCM.WC.PN ---
(1) Ulcer of left lower extremity with fat layer exposed Status: Chronic Current Visit: Yes Code(s): L97.922 - Non-pressure chronic ulcer of unspecified part of left lower leg with fat layer exposed (2) Xerosis cutis Status: Chronic Current Visit: Yes Code(s): L85.3 - Xerosis cutis (3) Lower extremity edema Status: Chronic Current Visit: Yes Code(s): R60.0 - Localized edema Type of Wound Date of Service: 07/31/19 Chief Complaint: Left leg History of Wound: This patient was admitted to the hospital on 05/13/2018 for a right leg infection with wound. This is been successfully treated with antibiotics. He now is following up for remaining ulcer at this site and resolving cellulitis. He denies fever, chill, nausea, vomiting. His pain is resolved. He had a delayed primary closure performed recently and it continues to drain. He wears a cam walker as advised. He relates his peripheral wound skin is much better with lac hydrin lotion application. Progress of Wound: Improving quality - Physical Exam Vital Signs Temp Pulse Resp BP 97.2 F L 92 16 145/74 H 07/31/19 13:47 07/31/19 13:47 07/31/19 13:47 07/31/19 13:47 General: Alert, Oriented x3, Cooperative, No apparent distress Extremities: No cyanosis, Capillary Refill Less than 3 Seconds, No Calf Tenderness, Diminished Peripheral Pulses, Edema Skin: Ulcer/ Wound - No purulence, erythema, streaking, odor, infection. His adjacent skin is hairless and atrophic. There is no longer any visualized Achilles tendon. There is granulation tissue progression noted. Wound Measurements and Assessment WC - Nurse 1 - General Ulcer Measurement Start: 07/31/19 12:58 Freq: Status: Active Protocol: Activity Type Activity Date Activity User E-Sign Co-Sign Detail Recorded Client Recorded Date Recorded By Document 07/31/19 13:47 ANTONIA [email or web address] 07/31/19 13:49 ANTONIA 07/31/19 13:47 Wound Center Nurse 1 [Ulcer Assessment] #1 L Post LE -Combined with other wound No -Current Size (cm) - Length 0.1 -Current Size (cm) - Width 0.1 -Current Size (cm) - Depth 0.1 -Total Square Cm 0.01 -Photo Taken No -Epithelialization Medium 34-66% -Tunneling No -Undermining/Tunneling No -Circular Undermining No -Exudate Amt Small -Exudate Type Serosanguineous -Wound Margin Flat & Intact -Granulation Amt None Present (0 %) -Slough/Fibrin Yes -Necrosis Amt Large (67-100%) -Necrotic Tissue Type Adherent Slough -Structure Exposed N/A -Texture (Melony-wound Skin Appearance) Assessed, Localized Edema -Moisture (Melony-wound Skin Appearance Assessed,Dry/ ) Scaly -Color (Melony-wound Skin Appearance) Assessed -Temperature (Melony-wound Skin No Abnormality Appearance) (Pt Warm) -Tenderness on Palpation (Melony-wound No Skin Appearance) -Ulcer Cleansing Rinsed/ Irrigated with Saline -Foul Odor after Cleansing No [Edema Assessment] -Left Calf (cm) 36.0 -Left Ankle (cm) 25.2 WC - Nurse 2 - General Ulcer CM Notes Start: 07/31/19 12:58 Freq: Status: Active Protocol: Activity Type Activity Date Activity User E-Sign Co-Sign Detail Recorded Client Recorded Date Recorded By Document 07/31/19 14:04 [id number] 07/31/19 14:11 ANTONIA 07/31/19 14:04 Wound Center Nurse 2 [Procedure/Treatment] #1 L Post LE -Time 14:09 -Correct Patient Yes -Correct Side, Site, Position Yes -Correct Procedure Yes -Procedure Performed Yes -Type of Procedure Debridement -Clinical Debridement Subcutaneous -Post Debridement Size (cm) - Length 0.7 -Post Debridement Size (cm) - Width 0.6 -Post Debridement Size (cm) - Depth 0.1 -Total Square Cm 0.42 -Wound/Ulcer Outcome Not Healed -Ulcer Cleansing Rinsed/ Irrigated with Saline -Foul Odor after Cleansing No -Bioengineered Tissue Yes -Type of bioengineered Tissue EPIFIX -Expiration Date 03/26/24 -Product Lot Number [id number] -Percent Used 100 -Saline Lot Number [id number] -Bleeding Controlled with Pressure -Offloading Yes -Type of Offloading Camwalker -Treatment Response Procedure Tolerated Well [See Physician Procedure note for Specifics] Pain Scale: 0-10 Numeric [Pain] -Is Patient Pain Free? Yes Musculoskeletal: No Tenderness to Palpation of Joints or Extremities, Muscle Wasting Neurological: Sensory exam intact to light touch and pain Psych/Mental Status: Normal Affect, Appropriate Debridement Note Post-Debridement Measurements/Treatment WC - Nurse 2 - General Ulcer CM Notes Start: 07/31/19 12:58 Freq: Status: Active Protocol: Activity Type Activity Date Activity User E-Sign Co-Sign Detail Recorded Client Recorded Date Recorded By Document 07/31/19 14:04 ANTONIA [id number] 07/31/19 14:11 ANTONIA 07/31/19 14:04 Wound Center Nurse 2 #1 L Post LE -Time 14:09 -Correct Patient Yes -Correct Side, Site, Position Yes -Correct Procedure Yes -Procedure Performed Yes -Type of Procedure Debridement -Clinical Debridement Subcutaneous -Post Debridement Size (cm) - Length 0.7 -Post Debridement Size (cm) - Width 0.6 -Post Debridement Size (cm) - Depth 0.1 -Total Square Cm 0.42 -Wound/Ulcer Outcome Not Healed -Ulcer Cleansing Rinsed/ Irrigated with Saline -Foul Odor after Cleansing No -Bioengineered Tissue Yes -Type of bioengineered Tissue EPIFIX -Expiration Date 03/26/24 -Product Lot Number [id number] -Percent Used 100 -Saline Lot Number [id number] -Bleeding Controlled with Pressure -Offloading Yes -Type of Offloading Camwalker -Treatment Response Procedure Tolerated Well Pain Scale: 0-10 Numeric Is Patient Pain Free? Yes Wound debrided: posterior leg Laterality: Left Type of Debridement: Excisional debridement Anesthesia Used: 5% Lidocaine Gel Depth: in the subcutaneous layer Percentage of wound debrided: 100 Instrument Used: #15 blade Tissue Removed: fibrous, devitalized subcutaneous, biofilm, slough Severity: Fat Layer Exposed Amount of bleeding with debridement: Mild Bleeding Controlled with: Pressure Patient tolerated procedure well Assessment/Plan Active Problems (Last Updated 05/10/18 @ 09:44 by Zonia Yanez) Diabetes mellitus with complication (Chronic) Xerosis cutis (Chronic) Ulcer of left lower extremity with fat layer exposed (Chronic) Lower extremity edema (Chronic) Assessment: Left leg ulcer. edema left leg. contracture left leg. walking difficulty Plan: I reviewed and discussed his case. His ulcer site is healing well and his cellulitis has resolved. He has completed his course of antibiotics per infectious disease and I do not recommend additional antibiotics at this time. It is noted his previous blood cultures during his last hospital admission were negative. He does not have any local signs of infection today and is doing well. This site was debrided in an excisional subcutaneous manner as noted in the clinical panel. He had a prior delayed primary closure two weeks ago in which about half of this coapted. The remaining sutures were removed and the remaining wound was debrided as previously noted. This was performed and he tolerated this well. Advanced wound care product, epifix was applied according to standard protocol after verbal consent was obtained. This is medically necessary for limb salvage. One hundred percent of the product was utilized. this was secured in place with a wound veil and steri strips. The indications and anticipated healing time and management were discussed. He was advised to decrease edema to the limb by wearing a Tubigrip compression stocking to elevate the limb at rest. To take nutritional supplementation to maintain a proper diet to optimize healing. To keep pressure off the site by avoiding laying right on this site which she reports he is already doing. I also recommend reducing tension to the site by mobilizing the ankle motion. I recommend a cam walker boot; to continue compliance with this. We reviewed proper use. To return to the wound healing center in 1 week or call sooner if he is any questions or concerns. To continue use of lac hydrin to adjacent skin daily.
[2019-08-07 13:34] VITALS: BP 147/62; PULSE 102; RESP 16; TEMP 36.8; BMI 28.1
--- NOTE | 2019-08-07 14:25 | PCM.WC.PN ---
(1) Ulcer of left lower extremity with fat layer exposed Status: Chronic Current Visit: Yes Code(s): L97.922 - Non-pressure chronic ulcer of unspecified part of left lower leg with fat layer exposed (2) Xerosis cutis Status: Chronic Current Visit: Yes Code(s): L85.3 - Xerosis cutis (3) Lower extremity edema Status: Chronic Current Visit: Yes Code(s): R60.0 - Localized edema (4) Diabetes mellitus with complication Status: Acute Current Visit: Yes Code(s): E11.8 - Type 2 diabetes mellitus with unspecified complications (5) Delayed wound healing Status: Acute Current Visit: Yes Code(s): T14.8XXD - Other injury of unspecified body region, subsequent encounter Type of Wound Date of Service: 08/07/19 Chief Complaint: Left leg History of Wound: This patient was admitted to the hospital on 05/13/2018 for a right leg infection with wound. This is been successfully treated with antibiotics. He now is following up for remaining ulcer at this site and resolving cellulitis. He denies fever, chill, nausea, vomiting. His pain is resolved. He wears a cam walker as advised. He relates his peripheral wound skin is much better with lac hydrin lotion application. Progress of Wound: Improving quality - Physical Exam Vital Signs Temp Pulse Resp BP 98.2 F 102 H 16 147/62 H 08/07/19 13:34 08/07/19 13:34 08/07/19 13:34 08/07/19 13:34 General: Alert, Oriented x3, Cooperative, No apparent distress Extremities: No cyanosis, Capillary Refill Less than 3 Seconds, No Calf Tenderness, Diminished Peripheral Pulses, Edema Skin: Ulcer/ Wound - No purulence, erythema, streaking, odor, infection, - - Improvement in wound bed granular progression is noted and the deep tissue is no longer mobilized separate from the overlying skin Wound Measurements and Assessment WC - Nurse 1 - General Ulcer Measurement Start: 07/31/19 12:58 Freq: Status: Active Protocol: Activity Type Activity Date Activity User E-Sign Co-Sign Detail Recorded Client Recorded Date Recorded By Document 08/07/19 13:34 [facility] [id number] 08/07/19 13:37 [facility] 08/07/19 13:34 Wound Center Nurse 1 [Ulcer Assessment] #1 L Post LE -Combined with other wound No -Current Size (cm) - Length 0.1 -Current Size (cm) - Width 0.1 -Current Size (cm) - Depth 0.1 -Total Square Cm 0.01 -Photo Taken No -Tunneling No -Undermining/Tunneling No -Circular Undermining No -Exudate Amt Small -Exudate Type Serosanguineous -Wound Margin Flat & Intact -Granulation Amt None Present (0 %) -Slough/Fibrin Yes -Necrosis Amt Small (1-33%) -Necrotic Tissue Type Eschar -Texture (Melony-wound Skin Appearance) Assessed, Scarring -Moisture (Melony-wound Skin Appearance Assessed,Dry/ ) Scaly -Color (Melony-wound Skin Appearance) Assessed -Temperature (Melony-wound Skin No Abnormality Appearance) (Pt Warm) -Tenderness on Palpation (Melony-wound No Skin Appearance) -Ulcer Cleansing soapy water -Foul Odor after Cleansing No -Anesthetic Used 5% Lidocaine Gel [Edema Assessment] -Lower Limb Edema Present Yes -Left Calf (cm) 37 -Left Ankle (cm) 25.6 WC - Nurse 2 - General Ulcer CM Notes Start: 07/31/19 12:58 Freq: Status: Active Protocol: Activity Type Activity Date Activity User E-Sign Co-Sign Detail Recorded Client Recorded Date Recorded By Document 08/07/19 13:51 ANTONIA [id number] 08/07/19 13:52 ANTONIA 08/07/19 13:51 Wound Center Nurse 2 [Procedure/Treatment] #1 L Post LE -Time 13:51 -Correct Patient Yes -Correct Side, Site, Position Yes -Correct Procedure Yes -Procedure Performed Yes -Type of Procedure Debridement -Clinical Debridement Subcutaneous -Post Debridement Size (cm) - Length 0.4 -Post Debridement Size (cm) - Width 0.1 -Post Debridement Size (cm) - Depth 0.1 -Total Square Cm 0.04 -Wound/Ulcer Outcome Not Healed -Ulcer Cleansing Rinsed/ Irrigated with Saline -Foul Odor after Cleansing No -Bioengineered Tissue Yes -Type of bioengineered Tissue EPIFIX -Expiration Date 03/26/24 -Product Lot Number [id number] -Percent Used 100 -Saline Lot Number [id number] -Bleeding Controlled with Pressure -Offloading Yes -Type of Offloading Camwalker -Treatment Response Procedure Tolerated Well [See Physician Procedure note for Specifics] Pain Scale: 0-10 Numeric [Pain] -Is Patient Pain Free? Yes Musculoskeletal: No Tenderness to Palpation of Joints or Extremities, Muscle Wasting Neurological: Sensory exam intact to light touch and pain Psych/Mental Status: Normal Affect, Appropriate Debridement Note Post-Debridement Measurements/Treatment WC - Nurse 2 - General Ulcer CM Notes Start: 07/31/19 12:58 Freq: Status: Active Protocol: Activity Type Activity Date Activity User E-Sign Co-Sign Detail Recorded Client Recorded Date Recorded By Document 07/31/19 14:04 [id number] 07/31/19 14:11 Document 08/07/19 13:51 [id number] 08/07/19 13:52 07/31/19 08/07/19 14:04 13:51 Wound Center Nurse 2 #1 L Post LE -Time 14:09 13:51 -Correct Patient Yes Yes -Correct Side, Site, Position Yes Yes -Correct Procedure Yes Yes -Procedure Performed Yes Yes -Type of Procedure Debridement Debridement -Clinical Debridement Subcutaneous Subcutaneous -Post Debridement Size (cm) - Length 0.7 0.4 -Post Debridement Size (cm) - Width 0.6 0.1 -Post Debridement Size (cm) - Depth 0.1 0.1 -Total Square Cm 0.42 0.04 -Wound/Ulcer Outcome Not Healed Not Healed -Ulcer Cleansing Rinsed/ Rinsed/ Irrigated with Irrigated with Saline Saline -Foul Odor after Cleansing No No -Bioengineered Tissue Yes Yes -Type of bioengineered Tissue EPIFIX EPIFIX -Expiration Date 03/26/24 03/26/24 -Product Lot Number [id number] -Percent Used 100 100 -Saline Lot Number [id number] -Bleeding Controlled with Pressure Pressure -Offloading Yes Yes -Type of Offloading Camwalker Camwalker -Treatment Response Procedure Procedure Tolerated Well Tolerated Well Pain Scale: 0-10 Numeric Is Patient Pain Free? Yes Yes Wound debrided: posterior leg Laterality: Left Wound Grade/Stage: grade 1 Type of Debridement: Excisional debridement Anesthesia Used: 5% Lidocaine Gel Depth: in the subcutaneous layer Percentage of wound debrided: 100 Instrument Used: #15 blade Tissue Removed: Fibrous, devitalized subcutaneous, biofilm, slough Severity: Fat Layer Exposed Amount of bleeding with debridement: Mild Bleeding Controlled with: Pressure Patient tolerated procedure well Assessment/Plan Active Problems (Last Updated 05/10/18 @ 09:44 by Zonia Yanez) Diabetes mellitus with complication (Chronic) Xerosis cutis (Chronic) Diabetes mellitus with complication (Acute) Delayed wound healing (Acute) Ulcer of left lower extremity with fat layer exposed (Chronic) Lower extremity edema (Chronic) Assessment: Left leg ulcer. edema left leg. contracture left leg. walking difficulty Plan: I reviewed and discussed his case. His ulcer site is healing well and his cellulitis has resolved. He has completed his course of antibiotics per infectious disease and I do not recommend additional antibiotics at this time. It is noted his previous blood cultures during his last hospital admission were negative. He does not have any local signs of infection today and is doing well. This site was debrided in an excisional subcutaneous manner as noted in the clinical panel. He had a prior delayed primary closure. This was performed and he tolerated this well. Advanced wound care product, epifix was applied today according to standard protocol after verbal consent was obtained. This is medically necessary for limb salvage. One hundred percent of the product was utilized. this was secured in place with a wound veil and steri strips. The indications and anticipated healing time and management were discussed. He was advised to decrease edema to the limb by wearing a Tubigrip compression stocking to elevate the limb at rest. To take nutritional supplementation to maintain a proper diet to optimize healing. To keep pressure off the site by avoiding laying right on this site which she reports he is already doing. I also recommend reducing tension to the site by mobilizing the ankle motion. I recommend a cam walker boot; to continue compliance with this. We reviewed proper use. To return to the wound healing center in 1 week or call sooner if he is any questions or concerns. To continue use of lac hydrin to adjacent skin daily.
[2019-08-14 14:07] VITALS: BP 148/73; PULSE 89; RESP 18; TEMP 36.1; BMI 28.1
--- NOTE | 2019-08-14 16:37 | PN.PCM_ITS ---
(1) Ulcer of left lower extremity with fat layer exposed Status: Resolved Current Visit: Yes Code(s): L97.922 - Non-pressure chronic ulcer of unspecified part of left lower leg with fat layer exposed (2) Xerosis cutis Status: Chronic Current Visit: Yes Code(s): L85.3 - Xerosis cutis (3) Lower extremity edema Status: Chronic Current Visit: Yes Code(s): R60.0 - Localized edema (4) Diabetes mellitus with complication Status: Acute Current Visit: Yes Code(s): E11.8 - Type 2 diabetes mellitus with unspecified complications (5) Delayed wound healing Status: Acute Current Visit: Yes Code(s): T14.8XXD - Other injury of unspecified body region, subsequent encounter Type of Wound Date of Service: 08/14/19 Chief Complaint: Left leg History of Wound: This patient was admitted to the hospital on 05/13/2018 for a leg infection with wound. This is been successfully treated with antibiotics. He now is following up for remaining ulcer at this site and resolving cellulitis. He denies fever, chill, nausea, vomiting. His pain is resolved. He wears a cam walker as advised. He relates his peripheral wound skin is much better with lac hydrin lotion application. He denies drainage. Progress of Wound: Healed - Physical Exam Vital Signs Temp Pulse Resp BP 96.9 F L 89 18 148/73 H 08/14/19 14:07 08/14/19 14:07 08/14/19 14:07 08/14/19 14:07 General: Alert, Oriented x3, Cooperative, No apparent distress Extremities: No cyanosis, Capillary Refill Less than 3 Seconds, No Calf Tenderness, Diminished Peripheral Pulses, Edema Skin: Ulcer/ Wound - No purulence, erythema, string, odor, infection. There is full epithelialization noted in the ulcer site is healed. The adjacent skin does not appear inflamed today however his chronic hyperpigmentation and induration of the adjacent skin is still present Wound Measurements and Assessment WC - Nurse 1 - General Ulcer Measurement Start: 07/31/19 12:58 Freq: Status: Active Protocol: Activity Type Activity Date Activity User E-Sign Co-Sign Detail Recorded Client Recorded Date Recorded By Document 08/14/19 14:07 RB [id number] 08/14/19 14:09 RB 08/14/19 14:07 Wound Center Nurse 1 [Ulcer Assessment] #1 L Post LE -Combined with other wound No -Current Size (cm) - Length 0.1 -Current Size (cm) - Width 0.1 -Current Size (cm) - Depth 0.1 -Total Square Cm 0.01 -Tunneling No -Undermining/Tunneling No -Circular Undermining No -Exudate Amt None Present -Wound Margin Flat & Intact -Granulation Amt Large (67-100%) -Granulation Quality [place],Red -Slough/Fibrin Yes -Necrosis Amt Small (1-33%) -Necrotic Tissue Type Adherent Slough -Structure Exposed N/A -Texture (Melony-wound Skin Appearance) Assessed, Excoriation -Moisture (Melony-wound Skin Appearance Assessed ) -Color (Melony-wound Skin Appearance) Assessed -Temperature (Melony-wound Skin No Abnormality Appearance) (Pt Warm) -Tenderness on Palpation (Melony-wound No Skin Appearance) -Ulcer Cleansing Wound Cleanser -Foul Odor after Cleansing No -Anesthetic Used 5% Lidocaine Gel [Edema Assessment] -Lower Limb Edema Present Yes -Left Calf (cm) 36.2 -Left Ankle (cm) 24.1 WC - Nurse 2 - General Ulcer CM Notes Start: 07/31/19 12:58 Freq: Status: Active Protocol: Activity Type Activity Date Activity User E-Sign Co-Sign Detail Recorded Client Recorded Date Recorded By Document 08/14/19 14:38 ANTONIA [id number] 08/14/19 14:39 ANTONIA 08/14/19 14:38 Wound Center Nurse 2 [Procedure/Treatment] #1 L Post LE -Correct Patient No -Correct Side, Site, Position No -Correct Procedure No -Procedure Performed No -Post Debridement Size (cm) - Length 0 -Post Debridement Size (cm) - Width 0 -Post Debridement Size (cm) - Depth 0 -Total Square Cm 0 -Wound/Ulcer Outcome Healed- Epithelialized [See Physician Procedure note for Specifics] Pain Scale: 0-10 Numeric [Pain] -Is Patient Pain Free? Yes Musculoskeletal: No Tenderness to Palpation of Joints or Extremities, Muscle Wasting Neurological: Sensory exam intact to light touch and pain Psych/Mental Status: Normal Affect, Appropriate Debridement Note Post-Debridement Measurements/Treatment WC - Nurse 2 - General Ulcer CM Notes Start: 07/31/19 12:58 Freq: Status: Active Protocol: Activity Type Activity Date Activity User E-Sign Co-Sign Detail Recorded Client Recorded Date Recorded By Document 07/31/19 14:04 [id number] 07/31/19 14:11 Document 08/07/19 13:51 [id number] 08/07/19 13:52 Document 08/14/19 14:38 [id number] 08/14/19 14:39 07/31/19 08/07/19 08/14/19 14:04 13:51 14:38 Wound Center Nurse 2 #1 L Post LE -Time 14:09 13:51 -Correct Patient Yes Yes No -Correct Side, Site, Position Yes Yes No -Correct Procedure Yes Yes No -Procedure Performed Yes Yes No -Type of Procedure Debridement Debridement -Clinical Debridement Subcutaneous Subcutaneous -Post Debridement Size (cm) - Length 0.7 0.4 0 -Post Debridement Size (cm) - Width 0.6 0.1 0 -Post Debridement Size (cm) - Depth 0.1 0.1 0 -Total Square Cm 0.42 0.04 0 -Wound/Ulcer Outcome Not Healed Not Healed Healed- Epithelialized -Ulcer Cleansing Rinsed/ Rinsed/ Irrigated with Irrigated with Saline Saline -Foul Odor after Cleansing No No -Bioengineered Tissue Yes Yes -Type of bioengineered Tissue EPIFIX EPIFIX -Expiration Date 03/26/24 03/26/24 -Product Lot Number [id number] -Percent Used 100 100 -Saline Lot Number [id number] -Bleeding Controlled with Pressure Pressure -Offloading Yes Yes -Type of Offloading Camwalker Camwalker -Treatment Response Procedure Procedure Tolerated Well Tolerated Well Pain Scale: 0-10 Numeric Is Patient Pain Free? Yes Yes Yes Wound debrided: leg Laterality: Left No debridement was completed today - Healed today Assessment/Plan Active Problems (Last Updated 05/10/18 @ 09:44 by Zonia Yanez) Diabetes mellitus with complication (Chronic) Xerosis cutis (Chronic) Diabetes mellitus with complication (Acute) Delayed wound healing (Acute) Lower extremity edema (Chronic) Assessment: Left leg ulcer healed today. edema left leg. contracture left leg. walking difficulty Plan: I reviewed and discussed his case. He does not have any local signs of infection today and is doing well. His ulcer site is healed today. I recommend he can discontinue formal dressing care. To wear a soft sock and to be very gentle with his friable skin. To monitor closely for return of wound or infection. To continue with CAM Walker immobilization to allow the skin to remodel. He will return to clinic in 2 weeks for healed wound check. I answered all his questions.
== END 2019-08-24 23:59 ==
LOC: WC 14:00
PROVIDERS: Family Provider Family Medicine; PCP Family Medicine; Visit Provider Podiatrist
DX: E11.622 Type 2 diabetes mellitus with other skin ulcer (principal); L97.822 Non-pressure chronic ulcer of other part of left lower leg with fat layer exposed; L85.3 Xerosis cutis; R60.0 Localized edema; R26.2 Difficulty in walking, not elsewhere classified
CPT/HCPCS: 15271; 99213; Q4186; G0463

== ENCOUNTER 2019-08-28 13:31 | Outpatient (RCR) | payer OTHER, SELFPAY ==
[2019-08-25 00:40] VITALS: BP 148/73; PULSE 89; RESP 18; TEMP 36.1
[2019-08-28 13:32] VITALS: BP 137/72; PULSE 87; RESP 16; TEMP 36.6; BMI 28.1
--- NOTE | 2019-08-28 13:59 | PCM.WC.PN ---
(1) Ulcer of left lower extremity with fat layer exposed Status: Resolved Code(s): L97.922 - Non-pressure chronic ulcer of unspecified part of left lower leg with fat layer exposed (2) Lower extremity edema Status: Chronic Code(s): R60.0 - Localized edema Type of Wound Date of Service: 08/28/19 Chief Complaint: Left leg ulcer with delayed healing History of Wound: This patient was admitted to the hospital on 05/13/2018 for a leg infection with wound. This is been successfully treated with antibiotics. He now is following up for remaining ulcer at this site and resolving cellulitis. He denies fever, chill, nausea, vomiting. His pain is resolved. He wears a cam walker as advised. He relates his peripheral wound skin is much better with lac hydrin lotion application. He denies drainage. Progress of Wound: Healed - Physical Exam Vital Signs Temp Pulse Resp BP 97.8 F 87 16 137/72 H 08/28/19 13:32 08/28/19 13:32 08/28/19 13:32 08/28/19 13:32 General: Alert, Oriented x3, Cooperative, No apparent distress Extremities: No cyanosis, Capillary Refill Less than 3 Seconds, No Calf Tenderness, Edema - Decreased, Peripheral Pulses Normal Skin: Ulcer/ Wound - Full epithelialization noted in the ulcer site is healed. He does not have any purulence, erythema streaking or odor. His skin is thin. Wound Measurements and Assessment WC - Nurse 1 - General Ulcer Measurement Start: 08/28/19 13:32 Freq: Status: Active Protocol: Activity Type Activity Date Activity User E-Sign Co-Sign Detail Recorded Client Recorded Date Recorded By Document 08/28/19 13:32 [facility] [id number] 08/28/19 13:35 [facility] 08/28/19 13:32 Wound Center Nurse 1 [Edema Assessment] -Lower Limb Edema Present No -Left Calf (cm) 36 -Left Ankle (cm) 23.6 Neurological: Sensory exam intact to light touch and pain Psych/Mental Status: Normal Affect, Appropriate Debridement Note No debridement was completed today - healed today Assessment/Plan Assessment: Left leg ulcer healed today. edema left leg. contracture left leg. walking difficulty Plan: I reviewed and discussed his case. He does not have any local signs of infection today and is doing well. His ulcer site is healed today. I recommend he can discontinue formal dressing care. To wear a soft sock and to be very gentle with his friable skin. To monitor closely for return of wound or infection. To continue with CAM Walker immobilization to allow the skin to remodel. He will return to clinic in 2 weeks for healed wound check. I answered all his questions.
== END 2019-09-24 23:59 ==
LOC: WC 13:31
PROVIDERS: Family Provider Family Medicine; PCP Family Medicine; Visit Provider Podiatrist
DX: Z09 Encounter for follow-up examination after completed treatment for conditions other than malignant neoplasm (principal); R60.0 Localized edema; R26.2 Difficulty in walking, not elsewhere classified
CPT/HCPCS: 99212; G0463

== ENCOUNTER → 2019-12-11 09:12 | Outpatient (CLI) | payer OTHER, SELFPAY ==
[2019-12-11 10:27] LABS: Anion Gap 8 (5-15); BUN 39 mg/dL (7-18); BUN/Creat Ratio 28.5 RATIO (10-20); Calcium,Total 9.3 mg/dL (8.5-10.1); Chloride 102 mmol/L (98-107); Creatinine, Serum 1.37 mg/dL (0.70-1.30); EST Glomerular Filtration Rate 56 mL/min (>60); Est Glom Filt Rate - Afr Amer 67 mL/min (>60); Glucose 117 mg/dL (74-106); Sodium Level 137 mmol/L (136-145)
== END ==
PROVIDERS: PCP Family Medicine; Visit Provider Family Medicine
DX: E11.9 Type 2 diabetes mellitus without complications (principal)
CPT/HCPCS: 36415; 80048

== ENCOUNTER → 2020-06-11 08:42 | Outpatient (CLI) | payer OTHER, SELFPAY ==
[2020-06-11 10:56] LABS: ALB/GLOB Ratio 1.4 RATIO (0.9-2.4); AST(SGOT) 15 U/L (15-37); Alanine Aminotransfer ALT/SGPT 23 U/L (16-61); Albumin, Serum 4.3 g/dL (3.2-5.0); Alkaline Phosphatase 90 U/L (45-117); Anion Gap 6 (5-15); BUN 27 mg/dL (7-18); BUN/Creat Ratio 19.9 RATIO (10-20); Calcium,Total 9.1 mg/dL (8.5-10.1); Chloride 102 mmol/L (98-107); Cholesterol 65 mg/dL (200); Creatinine, Serum 1.36 mg/dL (0.70-1.30); EST Glomerular Filtration Rate 56 mL/min (>60); Est Glom Filt Rate - Afr Amer 68 mL/min (>60); Glucose 92 mg/dL (74-106); High Density Lipoprotein 46 mg/dL; Potassium 4.4 mmol/L (3.5-5.1); Protein, Total 7.3 g/dL (6.4-8.2); Sodium Level 135 mmol/L (136-145); Triglycerides 53 mg/dL; Very Low Density Lipoprotein 11 mg/dL (5-40)
== END ==
PROVIDERS: PCP Family Medicine; Referring Provider Family Medicine; Visit Provider Family Medicine
DX: E11.65 Type 2 diabetes mellitus with hyperglycemia (principal)
CPT/HCPCS: 36415; 80053; 80061

== ENCOUNTER → 2020-07-06 11:31 | Outpatient (CLI) | payer OTHER, SELFPAY | PROVIDERS: PCP Family Medicine; Referring Provider Family Medicine; Visit Provider Family Medicine | DX: U07.1 COVID-19 (principal) | CPT/HCPCS: 87635; U0005; U0003 ==

== ENCOUNTER 2020-09-08 08:10 | Outpatient (RCR) | payer MEDICARE, SELFPAY ==
[2020-09-08] MEDS: COVID-19 VACC, MRNA(PFIZER)/PF 30 MCG/0.3 ML SYRINGE IM (13:17)
[2020-09-29] MEDS: COVID-19 VACC, MRNA(PFIZER)/PF 30 MCG/0.3 ML SYRINGE IM (13:04)
== END 2020-12-01 23:59 ==
LOC: IMMUN 08:10
PROVIDERS: PCP Family Medicine; Referring Provider Family Medicine; Visit Provider Family Medicine
DX: Z23 Encounter for immunization (principal)
CPT/HCPCS: 0001A; 0002A; 91300